=== PATIENT | male | born 1995 | race Caucasian/White ===

== ENCOUNTER 2024-11-17 10:48 | Inpatient (IN) | payer OTHER, SELFPAY ==
[2024-11-17] VITALS (60 sets, daily range): BP systolic 81–166; BP diastolic 38–137; PULSE 115–120; BMI 17.0
[2024-11-17] MEDS: DIPRIVAN 100 IV ×2 (08:35→14:58)
[2024-11-17 08:48] LABS: AST (SGOT) 27 U/L (17-59); Albumin 2.9 g/dl (3.5-5.0); Alkaline Phosphatase 423 U/L (38-126); Blood Urea Nitrogen 18 mg/dl (9-20); Calcium 9.1 mg/dl (8.4-10.2); Carbon Dioxide 21 mmol/L (22-30); Chloride 114 mmol/L (98-107); Estimated Creatinine Clearance 59 ml/min; Glucose 90 mg/dl (70-99); Hematocrit 19.9 % (39.0-52.0); Hemoglobin 5.3 g/dL (13.0-18.0); Mean Corp Hgb Conc. 26.6 g/dL (33.0-37.0); Mean Corpuscular Hgb 15.3 pg (27.0-31.0); Mean Corpuscular Volume 57.3 fL (80.0-94.0); Mean Platelet Volume 8.5 fL (7.4-10.4); Platelet Count 899 10^3/uL (130-400); Potassium 5.4 mmol/L (3.5-5.1); Red Blood Cell Count 3.47 10^6/uL (4.70-6.10); Red Cell Dist. Width 19.7 % (11.5-14.5); Sodium 150 mmol/L (135-145); Total Bilirubin 0.9 mg/dl (0.2-1.3); Total Protein 7.4 g/dl (6.3-8.2); White Blood Cell Count 29.5 10^3/uL (4.8-10.8); eGFR > 60.00
[2024-11-17 08:49] LABS: Lactic Acid 6.3 mmol/L (0.7-2.0)
[2024-11-17 08:56] LABS: ALT (SGPT) < 30 U/L (0-50)
[2024-11-17 09:00] LABS: % Basophils 0.3 % (0-2); % Immature Granulocytes 0.7 % (0-0.5); % Lymphocytes 6.4 % (20.5-51.1); % Monocytes 4.3 % (1.7-9.3); % Neutrophils 88.3 % (42.2-75.2); Absolute Basophils 0.1 10^3/uL (0-0.2); Absolute Immature Granulocytes 0.2 10^3/uL (0-0.05); Absolute Lymphocytes 1.9 10^3/uL (1.2-3.4); Absolute Monocytes 1.3 10^3/uL (0.1-0.6); Absolute Neutrophils 26.1 10^3/uL (1.4-6.5); Nucleated Red Blood Cells % 0.5 % (-)
[2024-11-17] MEDS: NSS 2000 IV (09:04)
[2024-11-17] MEDS: ZOSYN 100 IV ×3 (09:04→19:20)
--- NOTE | 2024-11-17 09:07 | ED.GENMED ---
History of Present Illness
General
Chief Complaint: Breathing Problem
Source: family and ambulance crew
Exam Limitations: clinical condition
Time Seen by Provider: 11/17/24 07:54
History of Present Illness
History of Present Illness:
29-year-old male known history of IVDA/heroin use presented to his mom's house yesterday. He seems somewhat off yesterday. Weaker light around would not typically stick around. Much worse this morning. Lethargic. Would not respond. Ambulance
was called. No other history available
Past History
Past History
ED Past Medical History: Psychiatric and Other (IVDA, previous cellulitis, chronic lower leg wounds)
ED Past Surgical History: Appendectomy
Patient has exhibited threatening behavior?: No
Social History
Tobacco: Smoker
Alcohol: None
Drug: Narcotics and IVDA
Personal: Single
Living: homeless
Family History
Family History: Negative Diabetes, Hypertension or CAD
Review of Systems
Review of Systems
Unable to obtain full review of systems at this time due to: due to acuity
All Other Systems: Not applicable
Phy Exam
Physical Exam
Physical Exam:
GENERAL: Very lethargic. Will open eyes and make eye contact only. Thin cachectic. Respiratory distress.
EYE: Orbits normal.
NECK: Supple, no significant adenopathy.
ENT: Dry mouth. Poor dentition
CARDIAC: Regular rate and rhythm without any obvious murmurs.
LUNGS: Tachypnea. Diffuse rhonchi
ABDOMEN: Mildly distended and hard.
NEUROLOGICAL: Will withdraw to pain. Very lethargic. Nonfocal.
SKIN: Slightly mottled. Large necrotic appearing lesion to the left lower leg. Small necrotic lesion of the right lower leg.
MUSCULOSKELETAL: Thin and cachectic
Sepsis
Sepsis Screening
Sepsis Assessment: Septic Shock
Sepsis Screening: Lactate >/=4mmol/L, Hypotension, Worsening O2 Saturation, Need for mechanical ventilation or BiPAP, Sustained Hypotension-SBP <90,MAP<65, or SBP decrease 40mmHg or more and Vasopressor support required
Sepsis Screen
Sepsis Screen: Septic Shock
Date: 11/17/24
Time: 13:14
Course
Orders/Labs/Results
Orders:
Orders
11/17/24 07:54
Electrocardiogram (*1) Urgent
Reason for Study: Other
Other Reason for Exam: sepsis
Cardiac Monitoring- Treatment ONCE
EKG- Treatment ONCE
Flores Placement- Treatment ONCE
Reason for insertion: I&O's Critical Care
IV Insert/Care/Rem.- Treatment PRN
0.9% Sodium Chloride 1000 ml [Nss] 2,000 ml IV BOLUS
Piperacillin/Tazo 4.5 Gram [Zosyn] 4.5 gram in 100 ml IV NOW
O2 Therapy [RESP] Urgent
Titrate/Wean O2 to maintain O2 sat greater than (%): 94
Pulse Ox/cont/shift [RESP] Urgent
Quantity: 1
11/17/24 07:55
CR Chest Portable - 1 View Urgent
Comment:
Reason For Exam: Respiratory distress
Reason Study Needs to be Portable: Unable to Transport
11/17/24 08:26
Complete Blood Count/With Diff Urgent
Comprehensive Metabolic Panel Urgent
Lactic Acid Q4H
Comment: CANCEL 2nd LACTIC ACID IF 1st LACTIC ACID IS LESS THAN 2
Blood Culture Q30M
CATRACHITO Source: Blood/Venous
Specimen Description:
FentaNYL 1,000 MCG/100 ML [Sublimaze] 1,000 mcg in 100 ml .ROUTE .STK-MED
Propofol 1,000,000 Mcg/100 ml [Diprivan] 1,000,000 mcg in 100 ml .ROUTE .STK-MED
11/17/24 08:38
NORepinephrine 4 MG/250 ML [Levophed] 4 mg in 250 ml .ROUTE .STK-MED
11/17/24 08:44
Vancomycin [Vancocin] 1,500 mg 0.9% Sodium Chloride 500 ml [Nss] 500 ml IV NOW
11/17/24 08:49
* Blood Bank Products Urgent
Blood Bank Products: *Packed RBC Leuko(PRBC's)
Quantity: 2
Transfuse Today: Yes
Reason: Anemia
IV Insert/Care/Rem.- Treatment PRN
11/17/24 08:50
CT Abd/Pel (IV only)-DH only Urgent
Comment:
Reason For Exam: Distention/sepsis
CT Head W/o Iv Contrast Urgent
Comment:
Reason For Exam: Distention/sepsis
11/17/24 09:00
Flush (0.9% Sodium Chloride) [Flush (Nss)] See Dose Instructions IV PER PROTOCOL
11/17/24 09:08
Type+Screen Urgent
PT/INR [Prothrombin Time] Urgent
PTT Urgent
Urinalysis Reflex To Culture Urgent
Date Specimen was Collected: 11/17/24
Time Specimen was Collected: 08:51
Urine Microscopic Reflex Cult Urgent
Blood Culture Q30M
CATRACHITO Source: Blood/Venous
Specimen Description:
11/17/24 09:44
Fentanyl Citrate/Pf [Sublimaze] 100 mcg IV NOW STA
11/17/24 Lunch
NPO
Allow oral meds: No
Allow clear liquids: No
NPO with Ice Chips: Yes
FentaNYL 1,000 MCG/100 ML [Sublimaze] 1,000 mcg in 100 ml IV PER PROTOCOL
Fentanyl Citrate/Pf [Sublimaze] 50 mcg IV [id number] PRN
NORepinephrine 4 MG/250 ML [Levophed] 4 mg in 250 ml IV PER PROTOCOL
Propofol 1,000,000 Mcg/100 ml [Diprivan] 1,000,000 mcg in 100 ml IV PER PROTOCOL
11/17/24 10:10
ABG [Arterial Blood Gas] Urgent
%Oxygen/Room Air: 450/peep 5/60
11/17/24 10:26
Admit/Transfer Patient As Directed
Co-Sign Provider:
Level of Care: Inpatient admission
Assign to:: ICU
Physician / Group: Dr. Homero Claudio/Hospitalists
Diagnosis: Severe Sepsis, Septic Shock, Respiratory Failure
Reason for Hospitalization: Severe Sepsis, Septic Shock, Respiratory Failure
Expected length of stay greater than two midnights?: Yes
ELOS- Estimated Length of Stay in days: 6
I certify the patient meets the requirements for IP care: Yes
11/17/24 10:29
Code Status As Directed
Resuscitation Status: Full Code
11/17/24 10:40
WOUND/OSTOMY CONSULT Routine
Reason for Consult: Wound care
11/17/24 11:00
Dextrose 5%/Water 1000 ml [D5w] 1,000 ml IV 60 mls/hr
11/17/24 11:54
Respiratory Culture/Gram Stain Routine
CATRACHITO Source: Sputum
Specimen Description:
Activity As Directed
Activity Level: As Tolerated
Intake/ Output As Directed
Frequency: q12h
Vital Signs As Directed
Frequency: Per unit guidelines
DX Deep Vein Thrombosis Video Routine
11/17/24 12:00
Lactate Level [Lactic Acid] Urgent
11/17/24 20:00
Heparin 5,000 units SC Q12
11/18/24 06:00
Complete Blood Count/With Diff IN AM
Comprehensive Metabolic Panel IN AM
Magnesium IN AM
11/19/24 06:00
Complete Blood Count/With Diff IN AM
Comprehensive Metabolic Panel IN AM
11/20/24 06:00
Complete Blood Count/With Diff IN AM
Comprehensive Metabolic Panel IN AM
11/21/24 06:00
Complete Blood Count/With Diff IN AM
Comprehensive Metabolic Panel IN AM
11/22/24 06:00
Complete Blood Count/With Diff IN AM
Comprehensive Metabolic Panel IN AM
Abnormal Lab Results
11/17/24 11/17/24 11/17/24
08:26 09:08 10:10
WBC 29.5 H 10^3/uL
(4.8-10.8)
RBC 3.47 L 10^6/uL
(4.70-6.10)
Hgb 5.3 L* g/dL
(13.0-18.0)
Hct 19.9 L* %
(39.0-52.0)
MCV 57.3 L fL
(80.0-94.0)
MCH 15.3 L pg
(27.0-31.0)
MCHC 26.6 L g/dL
(33.0-37.0)
RDW 19.7 H %
(11.5-14.5)
Plt Count 899 H 10^3/uL
(130-400)
Abs Immat Gran (auto) 0.2 H 10^3/uL
(0-0.05)
Absolute Neuts (auto) 26.1 H 10^3/uL
(1.4-6.5)
Absolute Monos (auto) 1.3 H 10^3/uL
(0.1-0.6)
Immature Gran % 0.7 H %
(0-0.5)
Neutrophils % 88.3 H %
(42.2-75.2)
Lymphocytes % 6.4 L %
(20.5-51.1)
PT 19.8 H Sec
(11.4-14.6)
APTT 44.4 H Sec
(23.4-35.0)
pH 7.32 L
(7.35-7.45)
pO2 411 H mmHg
(83-108)
ABG O2 Sat (Measured) 98.6 H %
(94-98)
Sodium 150 H mmol/L
(135-145)
Potassium 5.4 H mmol/L
(3.5-5.1)
Chloride 114 H mmol/L
(98-107)
Carbon Dioxide 21 L mmol/L
(22-30)
Creatinine 1.4 H mg/dL
(0.7-1.3)
Lactic Acid 6.3 H* mmol/L
(0.7-2.0)
Alkaline Phosphatase 423 H U/L
(38-126)
Albumin 2.9 L g/dl
(3.5-5.0)
Ur Occult Blood Reflex 1+ A
(Negative)
Urine RBC 3-6 A /HPF
(0-2)
Urine Albumin (Reflex) 3+ A
(Neg - Trace)
Crossmatch IS Only See Detail
11/17/24 08:26
11/17/24 08:26
Vital Signs
Initial and Last Documented VS:
Initial Vital Signs
Pulse
93
11/17/24 07:53
Last Documented Vital Signs
Temp Pulse Resp BP Pulse Ox
97.6 F 120 24 149/111 100
11/17/24 12:55 11/17/24 12:15 11/17/24 12:15 11/17/24 12:04 11/17/24 12:54
Procedures
Intubations
Procedure completed by: myself/Boni barajas
Method of Intubation: glidescope
Tube size (cm): 7.5
Placement confirmed by: auscutation, CXR, capnography, placement corrected and direct visualization
Breath sounds after intubation: equal
Intubation complications: no complications
Central Line
Right Femoral:
Indication for procedure:: Emergency access
Procedure completed by: Myself
Consent form signed: Yes
If no, reason: Emergency procedure
Anesthesia: 1% Lidocaine with Epi
Central line lumen: triple
Number of attempts: 1
Central line complications: none
Sterile dressing applied?: Yes
MDM/Problems Addressed
Differential Diagnosis Includes:
Patient presents significant mental status change tachypnea. Clinically septic. Possible noncardiogenic pulmonary edema. Initially became an IV access issue. Femoral line placed. Intubated. Currently with reasonable blood pressure mildly
tachycardic. Family updated multiple times. Being treated for sepsis.
*Pulse Oximetry
Patient hypoxic: yes
*[employer] Interpretation
Rate: tachycardiac
Interpretation: abnormal
Heart Rate: 120
Rhythm: sinus
*Critical Care Note
Total Time (30-74mins, 75-104mins- exclusive of procedures): 45
Data Reviewed
Review of Other/Old Records Reveals: Labs, Records, Testing and Progress Notes
Update Note
Update Note:
Patient's mom gave verbal consent for blood.
ED Attending Note
-
Portions of this chart may have been created with voice recognition software.� Occasional wrong word or��sound alike� substitutions may have occurred due to the inherent limitations of voice recognition software.
Discharge Plan
Departure
Patient Disposition: Admit
Date of Disposition: 11/17/24
Time of Disposition: 09:18
Presentation/result/management discussed w/ accepting MD/DO: Hospitalist
Discharge Problem:
Sepsis, Respiratory distress, Chronic wound left lower extremity, Severe anemia, Possible aspiration, History of IVDA
Interventions
Interventions:
*Risk Screen - Suicide Last Done: 11/17/24 07:56
*General Assessment Last Done: 11/17/24 07:56
*Neglect/Abuse Screening Last Done: 11/17/24 07:56
*ED COVID-19 Vaccine History Last Done: 11/17/24 08:16
ED- Cardiac Assessment Last Done: 11/17/24 09:30
ED- Pulmonary Assessment Last Done: 11/17/24 10:33
[2024-11-17 09:29] LABS: Urine Albumin 3+ (Neg - Trace); Urine Bilirubin Negative (Negative); Urine Character Clear (Clear); Urine Color Yellow; Urine Glucose Negative (Negative); Urine Ketone Negative (Negative); Urine Leukocyte Negative (Negative); Urine Nitrite Negative (Negative); Urine Occult Blood 1+ (Negative); Urine Urobilinogen 1+ (Neg - 1+)
[2024-11-17 09:32] LABS: INR 1.66; PT 19.8 Sec (11.4-14.6)
[2024-11-17] MEDS: VANCOCIN 530 MG IV (09:32)
[2024-11-17 09:33] LABS: APTT 44.4 Sec (23.4-35.0)
[2024-11-17 10:17] LABS: Urine Amorphous Seen
[2024-11-17] MEDS: SUBLIMAZE 100 IV ×2 (10:18→15:28)
[2024-11-17 10:19] LABS: Urine White Cell 0-2 /HPF (0-5)
[2024-11-17 10:22] LABS: B.E. -3.5 mmol/L; HCO3 22.2 mmol/L (21-28); O2 Saturation % 98.6 % (94-98); PCO2 43 mmHg (35-48); PO2 411 mmHg (83-108); pH 7.32 (7.35-7.45)
[2024-11-17] MEDS: SUBLIMAZE 100 MCG IV (10:24)
[2024-11-17] MEDS: LEVOPHED 250 IV (10:24)
--- NOTE | 2024-11-17 10:38 | HPS.HSE ---
Family Physician
-
Family Physician: * NONE
Chief Complaint
-
Lethargy
History of Present Illness
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
positive for fentanyl, cocaine, and marijuana presented with lethargy. History was obtained from the emergency room physician as well as patient's mom and family present in the patient's room. Patient has been living on the streets in [place],
[place], using IV drugs on the streets, and usually comes to his mom's house, stays for a little while and then leaves, but yesterday, he came and laid on the couch and did not leave and appeared lethargic and sick. Patient's mom says blood is
always dripping from him whenever he comes to visit. No other history was available.
Medical History
Past Medical History
Past Medical History: Reports Other (As per HPI above)
Past Surgical History: Reports Appendectomy
Social History
Tobacco: Smoker
Alcohol: None
Drug: IVDA
Family History
Family History: Not pertinent
Allergies / Home Medications
Allergies reflects when Allergies were last updated in [facility].
Home Medications with original date entered in [facility]
Allergy/Medication List:
Allergies
Allergy/AdvReac Type Severity Reaction Status Date / Time
No Known Allergies Allergy Verified 11/17/24 08:16
Home Medications
Unobtainable 11/17/24
Review of Systems
-
Unable to obtain full review of systems at this time due to: Acuity
Physical Exam
Vital Signs
Vital Signs
Temp Pulse Resp BP Pulse Ox
96.1 F L 110 31 158/117 73
11/17/24 09:11 11/17/24 10:30 11/17/24 10:05 11/17/24 10:25 11/17/24 09:30
Physical Exam
General: Appears Chronically Ill and Intubated
HEENT: NormoCephalic
Respiratory: Other (On mechanical ventilation with equal air entry bilaterally)
Cardiac: S1/S2 and Tachycardia
GI: Distended (Mildly distended. Feels hard (not soft).)
Musculoskeletal: No Cyanosis
Skin: Other (Wounds on bilateral lower extremities)
Neuro: Sedated
Psych: Calm
Laboratory Results
-
11/17/24 08:26
11/17/24 08:26
Laboratory Results
PT 19.8 Sec (11.4-14.6) H 11/17/24 09:08
INR 1.66 11/17/24 09:08
APTT 44.4 Sec (23.4-35.0) H 11/17/24 09:08
pH 7.32 (7.35-7.45) L 11/17/24 10:10
pCO2 43 mmHg (35-48) 11/17/24 10:10
pO2 411 mmHg (83-108) H 11/17/24 10:10
HCO3 22.2 mmol/L (21-28) 11/17/24 10:10
Lactic Acid 6.3 mmol/L (0.7-2.0) H* 11/17/24 08:26
Total Bilirubin 0.9 mg/dl (0.2-1.3) 11/17/24 08:26
AST 27 U/L (17-59) 11/17/24 08:26
ALT < 30 U/L (0-50) 11/17/24 08:26
Alkaline Phosphatase 423 U/L (38-126) H 11/17/24 08:26
Impression/Plan
-
Assessment/Plan
Septic Shock
Lactic Acidosis
Left Mid to Lower Lung Atelectasis vs. Pneumonia
Suspected Infection related to wounds from IVDU
Acute Hypoxic Respiratory Failure
Acute Toxic Metabolic Encephalopathy Secondary to the Above
-Blood cultures x2 ordered -- follow-up
-Received Normal Saline Fluid bolus in the ER
-Received vancomycin and Zosyn in the ER
-Continue broad spectrum antibiotics
-Continue mechanical ventilation
-Continue vasopressors
-Femoral Line placed in the ER
-Monitor in ICU
Anion Gap Metabolic Acidosis Suspected from Lactic Acidosis and Starvation
-Continue IV fluids
-Continue antibiotics
Acute Microcytic Anemia -- suspected acute blood loss anemia
-Hgb 5.3 initially
-2 units PRBCs ordered in the emergency room
-Recheck Hgb later this afternoon or evening after PRBC transfusion
-Check iron studies, suspected iron deficiency present
Hypernatremia
-Continue D5W IV fluids
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
Left lower extremity wounds bilaterally
Anxiety
Depression
Polysubstance use (including heroin)
Smoking
Vaping
History of UDS positive for fentanyl, cocaine, and marijuana
DVT Prophylaxis: Heparin Subq
Code Status: Full Code
Septic Shock and Respiratory Failure needing intubation is high-risk encounter.
[2024-11-17] MEDS: SUBLIMAZE 50 MCG IV (11:23)
--- NOTE | 2024-11-17 11:30 | PHA.VAN.IN ---
Assessment
- Assessment
Renal Function: Appears elevated from baseline
Maximum Temperature: 97.5
Minimum Temperature: 96.1
Concomitant Antimicrobials: zosyn
Plan
- Plan
Initial / Loading Dose: vancomycin 1500 mg x 1 on 11/17
Maintenance Regimen: dose by level
Monitoring: random level ordered for 11/18 @0600
Pharmacokinetics Vancomycin I
- -
Patient Age: 29
Patient Sex: Male
Vancomycin Day #: 1
Indication: Endocarditis
Requesting Provider: Dr. Claudio
Pertinent Antimicrobial Allergies:
nkda
Height / Weight:
Height 5 ft 10 in
Actual Weight 53.8 kg
IBW in k
Pertinent Past Medical History: history of osteomyelitis, left lower extremity wounds, IV drug use,
- Vital Signs / Lab Results
Temp Pulse Resp BP Pulse Ox
96.7 F L 116 24 166/110 100
11/17/24 11:15 11/17/24 11:10 11/17/24 11:10 11/17/24 11:10 11/17/24 11:01
Lab Results - Hematology
11/17/24
08:26
WBC 29.5 H
Lab Results - Chemistry
11/17/24
08:26
BUN 18
Creatinine 1.4 H
Estimated Creat Clear 59
Albumin 2.9 L
11/17/24 11/17/24
08:00 08:26
Lactic Acid Cancelled 6.3 H*
Lab Results - Urine
11/17/24
09:08
Urine Nitrite (Reflex) Negative
Leukocyte Esterase Rfl Negative
Urine WBC (Reflex) 0-2
Ur Squamous Epith Cells 3-5
--- NOTE | 2024-11-17 11:31 | CON.INTV ---
Consultation
Consultation Request
Date/Time Consultation Requested: 11/17/2024 - 1122
Date/Time Consultation Performed: 11/17/2024 - 1126
Requesting Provider: Dr. Claudio
Performing Provider: Dr. Pace
Reason for Consultation: Intubated/Sepsis/IVDU
Medical History
-
Chief Complaint: Short of breath
History of Present Illness:
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
tobacco use disorder who presents with respiratory distress. Patient lives on the streets in [place] but came to his mother's house 1 day prior to arrival. The patient had gone to take shower and then passed on the couch. Per the mother,
Adriana, she gives him money every once in a while so that he can get something to eat but she believes that he has been using her money for drugs. He has almost no fat on him, and when he is at her house he bleeds all over the place from his leg
wounds. He had gone to rehab a few years ago and was doing well, but then relapsed and now is not doing good at all. Per the mother, he only does heroin/fentanyl, no alcohol use and no known benzo use. Because the patient would not get up off the
couch and wake up, the mother brought him to the ER. Initially, pulse rate 93, respiratory rate 42, BP 125/101 and saturating 96% on 15 L/min via NRB. Initial labs showed WBC 29.5, Hb 5.3, platelet count 899, sodium 150, potassium 5.4, creatinine
1.4, lactate 6.3, and urinalysis negative for signs of UTI. Blood cultures were collected, and CXR showed pneumonia in the left middle to lower lung. CT A/P confirmed left lower lobe pneumonia and some patchy groundglass/tree-in-bud in his RML/RLL
concerning for pneumonitis vs pneumonia. In the ER he was intubated for airway protection/hypoxia, and given 2 L IVF with NS 0.9%, vent, Zosyn, started on fentanyl drip, propofol and Levophed. He was admitted to the ICU for further care with
Boiler Coverer Helper services consulted for additional management/recommendations.
When I saw the patient he was resting in bed in no acute distress, although he was shaking and clenching his abdomen. Currently intubated on AC/CMV at 18/450/5/40% with PIP 23 cm water, VTE 451 mL and breathing at 24 breaths/min. Heart rate 119,
saturating 90% and BP 149/111. Currently sedated on propofol at 50 mcg/kg/min and fentanyl at 175 mcg/h. Patient's mother, Karlie, at bedside and all questions were answered.
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
PSHx: Appendectomy
Past Medical History
Past Medical History: Other
Past Surgical History: Other (Above as per HPI)
Social History
Tobacco: Smoker
Alcohol: None
Drug: Marijuana, Cocaine and IVDA
Living: Homeless
Family History
Family History: Reviewed & Not Pertinent
Allergies / Home Medications
Allergies
Allergy/AdvReac Type Severity Reaction Status Date / Time
No Known Allergies Allergy Verified 11/17/24 08:16
Home Medications
�Medication �Instructions �Recorded �Confirmed �Last Taken �Type
Unobtainable 11/17/24 11/17/24 Unknown History
Review of Systems
-
Unable to Obtain full review of systems at this time due to: Patient Intubation
Vitals / Labs / Diagnostic Testing
Vital Signs
Temp Pulse Resp BP Pulse Ox
97.5 F 120 20 158/107 100
11/17/24 11:19 11/17/24 11:19 11/17/24 11:19 11/17/24 11:19 11/17/24 11:19
Lab Data
11/17/24 08:26
11/17/24 08:26
Laboratory Results
11/17/24 11/17/24
09:08 10:10
PT 19.8 H
INR 1.66
APTT 44.4 H
pH 7.32 L
pCO2 43
pO2 411 H
HCO3 22.2
O2 Delivery Level
Diagnostic Testing:
Physical Exam
-
HEENT: Normocephalic, Anicteric and Other (ETT in place)
Cardiovascular: S1/S2, Peripheral Edema (negative) and Other (Tachycardic)
Respiratory: Wheeze (negative), Rales (negative), Rhonchi (Left lower lobe), Non-Labored Respirations and Other (Mechanical breath sounds heard bilaterally)
GI: Soft, Non Tender and Other (Firm abdomen but not rigid)
Neurology: Tremors (negative) and Other (Sedated)
Skin: Warm, Dry and Other (Foul-smelling lower extremities with areas of necrosis)
General: Respiratory Distress (negative), Fever (negative), Chills (negative) and Other (Young male, appears cachectic and malnourished)
Assessment
-
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
anxiety/depression and tobacco use disorder who presents with respiratory distress. Patient lives on the streets in [place] but came to his mother's house 1 day prior to arrival. The patient had gone to take shower and then passed on the
couch. Per the mother, Adriana, she gives him money every once in a while so that he can get something to eat but she believes that he has been using her money for drugs. He has almost no fat on him, and when he is at her house he bleeds all over
the place from his leg wounds. He had gone to rehab a few years ago and was doing well, but then relapsed and now is not doing good at all. Per the mother, he only does heroin/fentanyl, no alcohol use and no known benzo use. Because the patient
would not get up off the couch, the mother brought to the ER. Initially, pulse rate 93, respiratory rate 42, BP 125/101 and saturating 96% on 15 L/min via NRB. Initial labs showed WBC 29.5, Hb 5.3, platelet count 899, sodium 150, potassium 5.4,
creatinine 1.4, lactate 6.3, and urinalysis negative for signs of UTI. Blood cultures were collected, and CXR showed pneumonia in the left middle to lower lung. CT A/P confirmed left lower lobe pneumonia and some patchy groundglass/tree-in-bud in
his RML/RLL concerning for pneumonitis vs pneumonia. In the ER he was intubated for airway protection/hypoxia, and given 2 L IVF with NS 0.9%, vent, Zosyn, started on fentanyl drip, propofol and Levophed. He was admitted to the ICU for further
care with Boiler Coverer Helper services consulted for additional management/recommendations.
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
Impression:
#Acute respiratory failure with hypoxia+ hypercapnia now on mechanical ventilation (intubated 11/17/2024)
#Sepsis due to pneumonia and LE wounds with regions of necrosis
#Acute anemia (suspected to be from his bleeding lower extremity wounds in the setting of sepsis)
#Thrombocytosis � likely reactive due to sepsis and drug withdrawal
#HEYDI with mild hyperkalemia
#Hyperchloremic/hypernatremic likely due to reduced oral intake with hypovolemia
#Lactic acidosis
#Elevated ALP (423 on )
#Abnormal UDS positive for fentanyl, opiates, cocaine + THC)
#Chronic LE wounds with regions of necrosis and foul smelling
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
#PNA in LLL, possibly also in RML/RML however could have a pneumonitis from illicit drug use insufflation
#Tobacco use disorder
Plan:
- Continue with mechanical ventilation and perform SAT/SBT daily if clinically appropriate
- Maintain SpO2 >90-94%
- Aspiration precautions
- Maintain plateau pressure <30
- Adjust vent settings daily based on blood gas
- Daily CXR
- ETT suctioning as needed
- prn nebulized bronchodilators - not currently bronchospastic
- Continue antibiotics, currently on Zosyn + IV vancomycin
- Follow-up blood cultures (collected 11/17/2024); check MRSA swab + respiratory cultures + Legionella + strep pneumonia urine antigens
- Wound care to his lower extremities
- Trend WBC and monitor for fevers
- May need ID given his Hx of chronic OM of his R-elbow with Hx of MRSA and chronic LE wounds
- Would consult surgery as well for a debridement
- For his illicit drug use now with withdrawal, continue fentanyl and propofol drips
- Start clonidine TID, uptitrating as needed
- Start oxycodone 10mg PO q6hr and klonopin 1mg TID
- May need precedex gtt as he is becoming more hypertensive since being here in ICU
- Start nicotine patch
- Maintain MAP>65
- Trend lactate until <2mmol/L
- Trend sNa --> started on D5W however he would fare better with a isotonic crystalloid as he likely has high Na from being volume depleted
- Trend sNa and sCr
- Monitor UOP with strict I/O
- Replete electrolytes with K>4, Mg>2
- Maintain euglycemia with goal BG 140-180; check A1C
- Trend H/H and transfuse if needed to keep Hb>7g/dL; keep plt>50k, and INR<1.8
- Stress ulcer ppx: Start PPI
- Early nutrition when possible to would hold off for now given distention of small bowel loops with suspected focal ileus seen on CT A/P from 11/17/2024
- DVT ppx: HSQ
Critical care statement: A total of 42 minutes of critical care time was provided for this patient today. This includes management of unstable vital signs, evaluation of the patient at bedside, reviewing the patient's pertinent medical records
including radiographs, microbiology, laboratory evaluations, and discussion with primary team, consultants, pharmacy, nutrition, physical therapy, case management, charge nurse, critical care nursing, and respiratory therapy.
Data:
CT Abd/Pelvis with IV contrast 11/17/2024:
Confluent parenchymal opacity within the left lower lobe of the lung, most likely pneumonia. Differential considerations of atelectasis or a combination of pneumonia and atelectasis.
Multiple small nodular and groundglass opacities throughout the visualized right lower lung, which is likely a diffuse small airway pneumonitis. Linear densities within the right lower lung compatible with discoid atelectasis.
Distention of the stomach. Distention of small bowel loops, most likely focal ileus. No evidence for free intraperitoneal air. Small bowel obstruction not excluded.
Hepatomegaly and splenomegaly, with slight increase in size of liver and spleen compared to prior CT in 2021.
There is heterogeneous decreased density of the liver, mainly in the right lobe and the superior to mid aspect. This could represent edema and/or fatty infiltration. Consider continued follow-up.
On delayed images, with lack of excretion of contrast into dilated calyces or ureters of either kidney, which would suggest diminished renal function/ATN. Continued serologic follow-up is advised.
Slightly enlarged left para-aortic lymph nodes, nonspecific, and could be reactive inflammatory nodes, but neoplastic nodes also possible. Consideration for continued follow-up.
--- NOTE | 2024-11-17 12:55 | PTCARENOTE ---
pt arrived via ed. pt intubated ac mode on vent. st seen on monitor. sedate moves all ext. following simple commands. non verbal. pupils 2 sluggish. dubois care done. bilat leg dressing done in ED c/d/i. wound care to seen him today. prbc
running. fent and dip running as ordered. ngt in place placement checked and flushed. pt mother at bedside reviewed pt condition and plan of care.
[2024-11-17] MEDS: CATAPRES 0.3 MG PO (13:29)
[2024-11-17 14:11] LABS: Cocaine Positive (Negative); Marijuana Positive (Negative); Opiates Positive (Negative)
[2024-11-17 14:12] LABS: Amphetamines Negative (Negative); Barbiturates Negative (Negative); Benzodiazepines Negative (Negative); Buprenorphine Negative (Negative); Methadone Negative (Negative); Methamphetamines Negative (Negative); Phencyclidine Negative (Negative); Tricyclic Antidepressants Negative (Negative)
[2024-11-17 14:45] LABS: Fentanyl, Urine Positive (Negative)
[2024-11-17] MEDS: D5W 1000 IV (14:49)
--- NOTE | 2024-11-17 15:59 | WOUNDNOTE ---
LEFT LOWER LEG
--- NOTE | 2024-11-17 16:00 | WOUNDNOTE ---
RIGHT LATERAL LEG
--- NOTE | 2024-11-17 16:03 | WOUNDNOTE ---
[facility] RN NOTE: Reviewed chart and met with patient. Patient known from previous admission of left leg full thickness wound r/t IVDA. See Worklist for measurements and full description. Right lateral leg has full thickness wound with pale pink wound
bed and minimal drainage. The left leg is malodorous with purulent drainage and areas of thick black eschar. TT Dr. Pace to recommend surgical consult for left leg. All other wound care orders confirmed and wound care provided to both legs as
ordered with assistance from RN Leland. Heels and sacrum intact. Heels off-loaded on pillows. Patient on Centrella Max air with turning schedule. Will continue to follow as needed.
[2024-11-17] MEDS: DAKIN'S SOLUTION 0.125% 1/4 STRENGTH 473 ML TOPICAL (16:19)
[2024-11-17] MEDS: THIAMINE INJECTION 200 MG IV (16:19)
[2024-11-17] MEDS: SILVER NITRATE APPLICATOR 10 EACH TOPICAL (16:20)
[2024-11-17] MEDS: PROTONIX IV 40 MG IV (16:20)
[2024-11-17] MEDS: NSS 1000 IV (16:21)
[2024-11-17] MEDS: PRECEDEX 100 IV (16:21)
--- NOTE | 2024-11-17 16:24 | OR.RPT ---
Addendum entered and electronically signed by Maciel Cruz MD 11/22/24 08:59:
Addendum at the end of the details of the operation: 'ALPHONSO Aguilar assisted with retraction, resection, providing countertraction and dressing the wound.'
Original Note:
Operative Report
Operative Report
Patient Name: Lokesh Guerrero
: 1995
Date of Operation: 11/17/2024
Preoperative Diagnosis: Necrotizing soft tissue infection
Postoperative Diagnosis: Same
Procedure(s):
Excisional debridement of skin of the left lower extremity (20 x 7 x 0.5 cm deep)
Surgeon(s):
Dr. Cruz
Welder Plastic(s):
ALPHONSO Aguilar
Anesthesia: Propofol sedation
Estimated Blood Loss: 13 cc
Urine Output: None
Drains/Lines/Implants: None
Specimens:
Wound fluid for culture and Gram stain
Indication for surgery:
This is a 29-year-old male IV drug abuser found to have a significant left lower extremity wound with skin necrosis concerning for a necrotizing soft tissue infection. After discussion of the risk benefits and alternatives the patient's mother
consented for an open debridement verbally at bedside.
Findings at the time of surgery:
Patient had multiple foci of necrotic tissue that was all debrided back to healthy bleeding tissue. The final dimension of the wound was roughly 20 x 7 x 0.5 cm deep. The wound was washed out and hemostasis was achieved. The wound was dressed
with Adaptic followed by a gauze/Kerlix pressure dressing.
Details of the operation:
The patient was intubated and under sedation in the ICU. A bedside debridement was performed. Multiple pads were placed under the left lower extremity which was prepped with Betadine and draped in the usual fashion. Under sedation a timeout was
performed, confirming the patient, laterality of the procedure and that appropriate preoperative antibiotics had been given. The visibly necrotic skin was completely excised using an 11 blade scalpel until we encountered healthy bleeding tissue.
There was some purulence which was sent for culture. Further debridement was accomplished mechanically with a curette. The wound was irrigated and then hemostasis was achieved using several applications of silver nitrate and Surgicel which was
left on the wound. The final dimensions of the debrided wound was 20 x 7 x 0.5 cm deep. The wound was then dressed with an Adaptic dressing followed by gauze and a Kerlix wrap with care to place pressure over the area of the area of previous
bleeding. This marked the conclusion of the procedure and his care was turned back to the ICU staff.
I was the attending physician and performed the procedure with assistance from the SALES OFFICE MANAGER above. I was present for all portions of the case.
Maciel Cruz MD
--- NOTE | 2024-11-17 16:25 | CON.GS ---
Addendum entered and electronically signed by Maciel Cruz MD 11/17/24 16:48:
I saw and examined the patient independently.
The Marketing Operations Analyst's note was reviewed and I agree with the note, assessment and plan except where noted below.
Comment: 29-year-old male with a history of IV drug use and injection into his lower extremities who presents with sepsis thought to be secondary to his lower extremity wounds particularly his left. General surgery consulted for evaluation and
possible debridement. Significant necrosis noted on the left side extending to the muscle, debrided at bedside to see separately dictated operative note.
Wound care: Appreciate wound care consult. Dakin's wet to dry Kerlix wrap twice daily. Once the infection is cleared, can switch to Adaptic, gauze and Kerlix wrap.
Follow-up wound cultures. Continue antibiotics.
General Surgery will follow peripherally, please call with any questions or concerns.
Original Note:
Medical History
-
Chief Complaint: wound
History of Present Illness:
Mr Guerrero is a 29 yo male with a h/o polysubstance abuse and Hep C who presented for evaluation of LE wounds. He was previously admitted in 2022 for osteomyelitis of the right elbow but signed out AMA prior to completing antibiotics. He is
currently intubated and sedated with his mother at bedside providing history. She notes that he has been living on the streets in [place] and occasionally comes home. She noticed that when he came home this time, he was not getting up from the
couch and was lethargic and she called an ambulance. He has had these wounds for some time but she notes that he has been afraid to come to the hospital for treatment as he is worried about amputation.
Past Medical History
Past Medical History: Psychiatric (anxiety/depression) and Other (polysubstance abuse, Hep C, MRSA, osteo of the right elbow)
Past Surgical History: Appendectomy
Social History
Tobacco: Vaping
Drug: Marijuana, Cocaine, Narcotics and IVDA
Personal: Single
Living: Homeless (stays with mother at times)
Family History
Family History: Reviewed & Not Pertinent
Allergies / Home Medications
Allergy/AdvReac Type Severity Reaction Status Date / Time
No Known Allergies Allergy Verified 11/17/24 08:16
�Medication �Instructions �Recorded �Confirmed �Type
Unobtainable 11/17/24 11/17/24 History
Review of Systems
-
History Source: Patient and Family
All other systems: Negative unless noted
A 10 point review of systems was completed, and was negative except as per HPI.
Physical Exam
Vital Signs
Temp Pulse Resp BP Pulse Ox
97.8 F 117 23 140/101 99
11/17/24 14:46 11/17/24 15:45 11/17/24 15:45 11/17/24 15:30 11/17/24 15:45
11/16/24 11/17/24 11/18/24
06:59 06:59 06:59
Actual Weight 53.8 kg
Body Mass Index (BMI) 17.0
Lab Results
WBC 29.5 10^3/uL (4.8-10.8) H 11/17/24 08:26
Hgb 5.3 g/dL (13.0-18.0) L* 11/17/24 08:26
Hct 19.9 % (39.0-52.0) L* 11/17/24 08:26
Plt Count 899 10^3/uL (130-400) H 11/17/24 08:26
Abs Immat Gran (auto) 0.2 10^3/uL (0-0.05) H 11/17/24 08:26
Neutrophils % 88.3 % (42.2-75.2) H 11/17/24 08:26
Physical Exam
General: Intubated; Negative Well Nourished
HEENT: Normocephalic
Respiratory: Non Labored Respirations and Other (vdrf)
GI: Soft and Non Tender
Skin: Other (RLE with denuded skin to santos about 5cm in length with slough to distal edge. LLE with large wound covering the anterior portion of the leg from about 10cm below the knee to level of the ankle with denuded skin, injection sites and
scattered areas of necrosis. Foul smelling with blood drainage. )
Neuro: Sedated
Data Reviewed
-
Labs: Labs Reviewed by me, Discussed with Physician and Discussed with Patient
Assessment / Plan
-
29 yo male with a h/o polysubstance abuse, hep c, MRSA, and osteo of the right elbow presenting sepsis secondary to pna and LE wounds. VDRF in ICU and sedated. Significant leukocytosis. Tachycardic, normothermic, BP elevated.
LLE wounds debrided at bedside (see procedure note) and cultures taken. Wound comes very close to bone, suspect possible osteomyelitis.
--Wound cultures
--BID dressing changes with Dakin's soaked gauze and Kerlix wrap. Wound care following.
--Continue ABX
--May benefit from ID evaluation
--- NOTE | 2024-11-17 17:35 | PTCARENOTE ---
Precedex ordered and being used for pos withdraw symptoms.
[2024-11-17 18:22] LABS: Hemoglobin 6.6 g/dL (13.0-18.0); Mean Corpuscular Hgb 17.9 pg (27.0-31.0); Mean Corpuscular Volume 59.6 fL (80.0-94.0); Mean Platelet Volume 8.2 fL (7.4-10.4); Platelet Count 602 10^3/uL (130-400); Red Blood Cell Count 3.69 10^6/uL (4.70-6.10); Red Cell Dist. Width 22.6 % (11.5-14.5); White Blood Cell Count 20.6 10^3/uL (4.8-10.8)
[2024-11-17] MEDS: ZANAFLEX 2 MG TUBE (18:27)
[2024-11-17] MEDS: ROXICODONE ORAL SOLUTION 20 MG TUBE (18:27)
[2024-11-17] MEDS: CATAPRES 0.2 MG TUBE (18:27)
[2024-11-17 18:30] LABS: Blood Urea Nitrogen 22 mg/dl (9-20); Carbon Dioxide 23 mmol/L (22-30); Chloride 116 mmol/L (98-107); Estimated Creatinine Clearance 59 ml/min; Glucose 83 mg/dl (70-99); Lactic Acid 0.8 mmol/L (0.7-2.0); Potassium 4.6 mmol/L (3.5-5.1); Sodium 147 mmol/L (135-145); Triglycerides 91 mg/dl (10-149); eGFR > 60.00
[2024-11-17] MEDS: HEPARIN 5000 UNITS SC (19:22)
[2024-11-17 20:06] LABS: Reticulocyte Count 2.1 % (0.4-2.8)
[2024-11-17 20:23] LABS: Iron 21 ug/dl (49-181)
--- NOTE | 2024-11-17 20:30 | PTCARENOTE ---
Handoff report received from off going RN. Patient received on mechanical ventilation and on Fentanyl gtt at 175 mcg/hr, Propofol at 50 mcg/kg/min. Precedex at 0.6 mcg/kg/hr, and NSS at 100 ml/hr. Patient grimaces to painful stimuli and mouth care.
Otherwise, does not follow simple commands. Plan of care for the shift reviewed with the patient. Sinus tachy on the monitor. Afebrile. +2 pitting edema to LLE. SpO2 at 99% on ventilator setting AC 18/450/+5/40%. Pt's with #7.5 ETT & 24@ the lips.
Rhonchi and coarse breath sounds. Blood tinged sputum with suction. Right nare NGT is clamped. Placement verified via auscultation. However, NGT sound is difficult to hear. Pt belches with air bolus via NGT. Flores catheter is draining guilherme urine.
Flores care completed. Bilateral wound dressings are cdi at this time. Restraints are in place. Andrea Castro CRNP is at the bedside.
19:33-1 pack PrBC transfusing. Full assessment as noted on the worklist.
20:10: Patient SpO2 decreased to 82%. 100% FiO2 bolus on ventilatior. Patient suctioned for scant amount. SpO2 at 93% on ventilator and increasing.
e.
[2024-11-17 20:33] LABS: Percent Saturation 6 % (20-50); Total Iron Binding Capacity 349 ug/dl (261-462)
--- NOTE | 2024-11-17 20:45 | PTCARENOTE ---
20:43: Pt's SpO2 at 80% on ventilator. Pt suctioned for scant amount. 100% FiO2 bolus provided. RT Jamar paged and made aware. RT at the bedside. RHONDA Castro is at the bedsid
[2024-11-17 21:05] LABS: Ferritin 15.3 ng/ml (17.9-464.0)
--- NOTE | 2024-11-17 21:47 | PTCARENOTE ---
192- Prbc transfusion completed.
~1935: Pt's mother, Karlie, updated via the phone. Pt's mother states that she would like the patient to be kept 'intubated or placed in a coma until he gets better. ' Pt's mother stated that the patient would 'run' once he gets better.
[2024-11-18] VITALS (24 sets, daily range): BP systolic 117–162; BP diastolic 80–109; BMI 17.2
[2024-11-18] MEDS: ZANAFLEX 2 MG TUBE ×3 (00:07→12:59)
[2024-11-18] MEDS: CATAPRES 0.2 MG TUBE ×3 (00:07→12:59)
[2024-11-18] MEDS: ROXICODONE ORAL SOLUTION 20 MG TUBE ×3 (00:08→12:59)
[2024-11-18 00:28] LABS: Hematocrit 23.2 % (39.0-52.0); Hemoglobin 7.1 g/dL (13.0-18.0)
[2024-11-18] MEDS: DIPRIVAN 100 IV (00:42)
--- NOTE | 2024-11-18 00:44 | PTCARENOTE ---
Patient reassessed. Opens his eyes but does not follow commands. Administered scheduled medications and noticed that the medications came out of the patient's mouth. TRIMMER OPERATOR THREE KNIFE made aware and is at the bedside. New NGT placement ordered and placed to the
right nare at 65.5 cm. Placement verified via air bolus and auscultation. X-ray at the bedside. Propofol weaning continued.
[2024-11-18] MEDS: ZOSYN 100 IV ×4 (02:20→19:49)
[2024-11-18] MEDS: NSS 1000 IV ×2 (02:21→13:00)
[2024-11-18] MEDS: SUBLIMAZE 50 MCG IV ×2 (02:44→03:28)
[2024-11-18] MEDS: PRECEDEX 100 IV ×3 (03:04→19:48)
--- NOTE | 2024-11-18 03:53 | W.PN.UPDATE ---
Update Note
Progress Note Update
Procedure Note: Arterial Line�
� Right Wrist Arrow 20 (10/24)�
Diagnosis:��Sepsis, acute respiratory failure
IV Line Comments: Uneventful Procedure�
Gene's test completed pre-procedure: Yes�
A-Line Comments: Sterile technique as per standard protocol, Ultrasound guided insertion�
Functioning A-line in situ: Yes�
A-line Insertion Start Time:��0315
A-line in at:��0320
[2024-11-18] MEDS: SUBLIMAZE 100 IV ×2 (04:45→10:16)
[2024-11-18 04:58] LABS: B.E. -5.7 mmol/L; HCO3 19.2 mmol/L (21-28); O2 Saturation % 98.8 % (94-98); PCO2 34 mmHg (35-48); PO2 188 mmHg (83-108); pH 7.36 (7.35-7.45)
[2024-11-18 04:59] LABS: O2 Therapy 40%
[2024-11-18 05:24] LABS: % Basophils 0.5 % (0-2); % Eosinophils 1.9 % (0-6); % Immature Granulocytes 0.3 % (0-0.5); % Lymphocytes 10.3 % (20.5-51.1); % Monocytes 4.6 % (1.7-9.3); % Neutrophils 82.4 % (42.2-75.2); Absolute Basophils 0.1 10^3/uL (0-0.2); Absolute Eosinophils 0.2 10^3/uL (0-0.7); Absolute Lymphocytes 1.3 10^3/uL (1.2-3.4); Absolute Monocytes 0.6 10^3/uL (0.1-0.6); Hematocrit 23.1 % (39.0-52.0); Hemoglobin 7.1 g/dL (13.0-18.0); Mean Corp Hgb Conc. 30.7 g/dL (33.0-37.0); Mean Corpuscular Hgb 19.2 pg (27.0-31.0); Mean Corpuscular Volume 62.6 fL (80.0-94.0); Mean Platelet Volume 8.4 fL (7.4-10.4); Nucleated Red Blood Cells % 0.2 % (-); Platelet Count 574 10^3/uL (130-400); Red Blood Cell Count 3.69 10^6/uL (4.70-6.10); Red Cell Dist. Width 23.4 % (11.5-14.5); White Blood Cell Count 12.1 10^3/uL (4.8-10.8)
[2024-11-18 05:37] LABS: ALT (SGPT) < 10 U/L (0-50); AST (SGOT) 22 U/L (17-59); Albumin 2.4 g/dl (3.5-5.0); Alkaline Phosphatase 304 U/L (38-126); Blood Urea Nitrogen 25 mg/dl (9-20); Carbon Dioxide 20 mmol/L (22-30); Chloride 120 mmol/L (98-107); Estimated Creatinine Clearance 64 ml/min; Glucose 73 mg/dl (70-99); Phosphorus 4.9 mg/dl (2.5-4.5); Potassium 4.3 mmol/L (3.5-5.1); Sodium 150 mmol/L (135-145); Total Bilirubin 1.2 mg/dl (0.2-1.3); Total Protein 6.5 g/dl (6.3-8.2); eGFR > 60.00
[2024-11-18 05:41] LABS: Vancomycin Random 14.5 ug/ml
--- NOTE | 2024-11-18 07:46 | W.PN.INTV ---
Today's Communication / Plan
Recommendations
Mechanical ventilation
Wean down sedation with propofol first, and reassess; may need to extubate on fentanyl + Precedex
Continue clonidine & Zanaflex
Off vasopressors since 11/17/2024
Follow-up blood + postoperative cultures
Continue antibiotics
DVT + stress ulcer prophylaxis
Continue ICU level care for this critically ill patient
Assessment
-
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
anxiety/depression and tobacco use disorder who presents with respiratory distress. [place] in [place] but came to his mother's house 1 day prior to arrival. The patient had gone to take shower and then passed on the
couch. Per the mother, Adriana, she gives him money every once in a while so that he can get something to eat but she believes that he has been using her money for drugs. He has almost no fat on him, and when he is at her house he bleeds all over
the place from his leg wounds. He had gone to rehab a few years ago and was doing well, but then relapsed and now is not doing good at all. Per the mother, he only does heroin/fentanyl, no alcohol use and no known benzo use. Because the patient
would not get up off the couch, the mother brought to the ER. Initially, pulse rate 93, respiratory rate 42, BP 125/101 and saturating 96% on 15 L/min via NRB. Initial labs showed WBC 29.5, Hb 5.3, platelet count 899, sodium 150, potassium 5.4,
creatinine 1.4, lactate 6.3, and urinalysis negative for signs of UTI. Blood cultures were collected, and CXR showed pneumonia in the left middle to lower lung. CT A/P confirmed left lower lobe pneumonia and some patchy groundglass/tree-in-bud in
his RML/RLL concerning for pneumonitis vs pneumonia. In the ER he was intubated for airway protection/hypoxia, and given 2 L IVF with NS 0.9%, vent, Zosyn, started on fentanyl drip, propofol and Levophed. He was admitted to the ICU for further
care with [facility] services consulted for additional management/recommendations.
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
Impression:
#Acute respiratory failure with hypoxia+ hypercapnia now on mechanical ventilation (intubated 11/17/2024)
#Sepsis due to pneumonia and LE wounds with regions of necrosis
#Necrotizing soft tissue infection involving left lower extremity s/p excisional debridement (performed 11/17/2024)
#Acute anemia (suspected to be from his bleeding lower extremity wounds in the setting of sepsis)
#Thrombocytosis � likely reactive due to sepsis and drug withdrawal
#HEYDI with mild hyperkalemia (potassium now normalized)
#Hyperchloremic/hypernatremic likely due to reduced oral intake with hypovolemia
#Lactic acidosis � now normalized
#Elevated ALP (423 on )
#Abnormal UDS positive for fentanyl, opiates, cocaine + THC)
#Chronic LE wounds with regions of necrosis and foul smelling
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
#PNA in LLL, possibly also in RML/RML however could have a pneumonitis from illicit drug use insufflation
#Tobacco use disorder
Plan:
- Continue with mechanical ventilation and perform SAT/SBT daily if clinically appropriate
- Maintain SpO2 >90-94%
- Aspiration precautions
- Maintain plateau pressure <30
- Adjust vent settings daily based on blood gas
- Daily CXR
- ETT suctioning as needed
- prn nebulized bronchodilators - not currently bronchospastic
- Continue antibiotics, currently on Zosyn + IV vancomycin
- Follow-up blood cultures (collected 11/17/2024); check MRSA swab + respiratory cultures + Legionella + strep pneumonia urine antigens
- Wound care to his lower extremities
- Trend WBC and monitor for fevers
- May need ID given his Hx of chronic OM of his R-elbow with Hx of MRSA and chronic LE wounds
- Surgery consulted on 11/17, and performed excisional debridement of his left lower extremity and cultures were sent.
- For his illicit drug use now with withdrawal, continue fentanyl and propofol drips
- Continue clonidine TID, up-titrating as needed
- Continue oxycodone 10mg PO q6hr; no need for klonopin given no benzos on UDS
- May need precedex gtt as he is becoming more hypertensive since being here in ICU
- Continue nicotine patch
- Maintain MAP>65
- Was on vasopressors on admission, but has been off since 11/17/2024
- Lactate is now normalized; no need to continue trending at this time
- Trend sNa --> initially started on D5W on admission, however he would fare better with a isotonic crystalloid as he likely has high Na from being volume depleted --> changed to NS
- Trend sNa and sCr
- Monitor UOP with strict I/O
- Replete electrolytes with K>4, Mg>2
- Maintain euglycemia with goal BG 140-180; check A1C
- Trend H/H and transfuse if needed to keep Hb>7g/dL; keep plt>50k, and INR<1.8
- Stress ulcer ppx: Continue PPI
- Early nutrition when possible to would hold off for now given distention of small bowel loops with suspected focal ileus seen on CT A/P from 11/17/2024
- DVT ppx: HSQ
Critical care statement: A total of 38 minutes of critical care time was provided for this patient today. This includes management of unstable vital signs, evaluation of the patient at bedside, reviewing the patient's pertinent medical records
including radiographs, microbiology, laboratory evaluations, and discussion with primary team, consultants, pharmacy, nutrition, physical therapy, case management, charge nurse, critical care nursing, and respiratory therapy.
Data:
CT Abd/Pelvis with IV contrast 11/17/2024:
Confluent parenchymal opacity within the left lower lobe of the lung, most likely pneumonia. Differential considerations of atelectasis or a combination of pneumonia and atelectasis.
Multiple small nodular and groundglass opacities throughout the visualized right lower lung, which is likely a diffuse small airway pneumonitis. Linear densities within the right lower lung compatible with discoid atelectasis.
Distention of the stomach. Distention of small bowel loops, most likely focal ileus. No evidence for free intraperitoneal air. Small bowel obstruction not excluded.
Hepatomegaly and splenomegaly, with slight increase in size of liver and spleen compared to prior CT in 2021.
There is heterogeneous decreased density of the liver, mainly in the right lobe and the superior to mid aspect. This could represent edema and/or fatty infiltration. Consider continued follow-up.
On delayed images, with lack of excretion of contrast into dilated calyces or ureters of either kidney, which would suggest diminished renal function/ATN. Continued serologic follow-up is advised.
Slightly enlarged left para-aortic lymph nodes, nonspecific, and could be reactive inflammatory nodes, but neoplastic nodes also possible. Consideration for continued follow-up.
CXR 11/18/2024: Patchy parenchymal opacities within both lungs, likely pneumonia. No evidence for associated pleural effusion.
Subjective Dataa
Subjective Data
Date of Service:
Date of Service: November 18, 2024
Chief Complaint: [facility] Follow Up
Subjective:
Patient seen and evaluate this morning. Yesterday patient underwent an excisional debridement of his left lower extremity by surgery. Remains intubated on AC/CMV at 18/450/5/40% with PIP 21 cmH2O, VTe 450 cc and breathing at 18 breaths/min.
Saturating 98% with HR 66 and BP via A-line: 123/64. BP via NIBP: 119/74. Sedated on propofol at 35 mcg/kg/min, Precedex at 1 mcg/kg/hr and fentanyl at 175 mcg/hr. Patient is well sedated and in no acute distress. Afebrile overnight.
Review of Systems
General: Unobtainable - Sedation (Intubated)
Objective Data
Data Reviewed
Vital Signs / I&O / Oxygen:
Vital Signs
Temp Pulse Resp BP Pulse Ox
97.6 F 76 18 125/89 99
11/18/24 07:23 11/18/24 06:29 11/17/24 21:30 11/18/24 06:29 11/18/24 04:00
Intake and Output
11/17/24 11/18/24 11/19/24
06:59 06:59 06:59
Intake Total 3381.4 / 3381.4
Output Total 630 / 630
Balance 2751.4 / 2751.4
SaO2 [A/C] 99
SaO2 99
Nasal Cannula flow liters per 15
minute
Physical Exam
General: Respiratory Distress (negative), Comfortable, Chills (negative) and Sweats (negative)
HEENT: Normocephalic and Anicteric
Cardiovascular: S1-S2 and Peripheral Edema (negative)
Respiratory: Wheeze (negative), Crackles (negative), Rhonchi (negative), Non-Labored Respirations and ET Tube (Mechanical breath sounds heard bilaterally)
GI: Soft, Non Distended, Non Tender and Normal Bowel Sounds
Neurology: Tremors (negative) and Other (Sedated)
Skin: Warm, Dry, Cyanosis (negative), Jaundice (negative) and Other (Bandages across lower extremities; underneath bandages are malodorous necrotic wounds)
Labs/Micro/Reports
Lab Data
11/18/24 04:41
11/18/24 04:41
Laboratory Results
11/17/24 11/17/24 11/18/24
09:08 10:10 04:51
PT 19.8 H
INR 1.66
APTT 44.4 H
pH 7.32 L 7.36
pCO2 43 34 L
pO2 411 H 188 H
HCO3 22.2 19.2 L
O2 Delivery Level 40%
Microbiology
11/17/24 16:24 Leg - Left Gram Stain - Preliminary
11/17/24 13:21 Endotracheal Gram Stain - Preliminary
--- NOTE | 2024-11-18 08:00 | PTCARENOTE ---
Received pt @ change of shift; assessment per charting- see flow sheet. Intubated/sedated/restrained w b/l soft limb/4 rails- see flow sheets. Prop/fent/dex/IVF infusing via R fem central line- see flow sheets. Plan for SAT/SBT if approp. Pt.'s
mother @ bedside, updated on plan of care. Safe environment maintained.
[2024-11-18] MEDS: NSS (PRESERVATIVE FREE) 10 ML IV (08:27)
[2024-11-18] MEDS: PROTONIX IV 40 MG IV (08:28)
[2024-11-18] MEDS: THIAMINE INJECTION 200 MG IV (08:28)
[2024-11-18] MEDS: HEPARIN 5000 UNITS SC ×2 (08:28→19:53)
[2024-11-18] MEDS: DAKIN'S SOLUTION 0.125% 1/4 STRENGTH 473 ML TOPICAL (08:29)
[2024-11-18] MEDS: NICODERM TRANSDERMAL 21 MG TRANSDERM (08:29)
[2024-11-18 09:48] LABS: Glycohemoglobin (HgbA1c) 5.4 % (4.0-5.6)
[2024-11-18 10:32] LABS: GGTP 132 U/L (15-73)
--- NOTE | 2024-11-18 10:35 | CM ---
Patient seen bedside w/ mother, Adriana. Initial assessment completed. Patient is a 29-year-old male with past medical history of osteomyelitis of the right elbow joint (chronic), left lower extremity wounds bilaterally, acute blood loss anemia,
anxiety, depression, substance use (including heroin), smoking, and vaping with UDS positive for fentanyl, cocaine, and marijuana presented with lethargy.
Patient intubated on 11/17
Per Adriana, patient is currently homeless at this time. Patient bud was living in [place] and has been struggling w/ addiction for over 5 years. Per Adriana, patient's drug of choice is heroin but states it's 'whatever he can get'. Adriana shared
patient is not allowed to live w/ her, he comes through to eat and shower but is not allowed in her home without her there. Adriana stated patient should go to IP rehab, preferably somewhere where public transportation is not accessible for him to
leave. Adriana shared that patient bud was at [facility] for IP rehab about 2 years ago where he did really well. Patient is agreeable to return at d/c for IP. CM to consult [facility] for IP D&A placement when hospitalization progresses.
Plan: IP D&A placement
--- NOTE | 2024-11-18 11:15 | PHA.VAN.FU ---
Vancomycin Assessment / Plan
- Assessment
Renal Function: Stable
WBC's are: Trending Down
In the past 24 hrs, patient has been: Afebrile
Concomitant Antimicrobials: Piperacillin-tazobactam
- Assessment - Therapeutic Drug Monitoring
Random Level: R = 14.5 ~ 19hrs post Vanc 1500mg
- Dosing Plan
Continue: Dose by level
Dosing by Level: Hold off on dosing today
- Monitoring Plan
Random Level: 3/30 AM
- Follow Up
Pharmacy will continue to follow.
Vancomycin Follow UP
- -
Patient Age: 29
Patient Sex: Male
Vancomycin Day #: 2
Indication: Endocarditis
Requesting Provider: Dr. Claudio
Pertinent Antimicrobial Allergies:
nkda
Height / Weight:
Height 5 ft 10 in
Actual Weight 54.4 kg
IBW in k
Pertinent Past Medical History: history of osteomyelitis, left lower extremity wounds, IV drug use,
- Vital Signs / Lab Results
Temp Pulse Resp BP Pulse Ox
98.6 F 68 18 117/80 99
11/18/24 11:02 11/18/24 07:45 11/18/24 07:45 11/18/24 07:30 11/18/24 08:00
Lab Results - Hematology
11/17/24 11/17/24 11/18/24
08:26 18:08 04:41
WBC 29.5 H 20.6 H 12.1 H
Lab Results - Chemistry
11/17/24 11/17/24 11/18/24
08:26 18:08 04:41
BUN 18 22 H 25 H
Creatinine 1.4 H 1.4 H 1.3
Estimated Creat Clear 59 59 64
Albumin 2.9 L 2.4 L
11/17/24 11/17/24 11/17/24
08:00 08:26 18:08
Lactic Acid Cancelled 6.3 H* 0.8
Microbiology Results
11/17/24 13:21 Respiratory Culture - Preliminary
Endotracheal Gram Stain - Preliminary
11/17/24 16:24 Wound Culture - Preliminary
Leg - Left Gram Stain - Preliminary
11/17/24 16:24 Anaerobic Culture - Preliminary
Leg - Left Culture pending. Anaerobic cultures are examined after 3
days incubation. Additional information to follow.
11/17/24 09:08 Blood Culture - Preliminary
Blood/Venous No Growth in 24 hours- Final report to follow
11/17/24 08:26 Blood Culture - Preliminary
Blood/Venous No Growth in 24 hours- Final report to follow
Therapeutic Drug Monitoring
Random Vancomycin 14.5 ug/ml 11/18/24 04:41
--- NOTE | 2024-11-18 12:01 | CHAP ---
Lokesh was sleeping, non-responsive. Mother, Adriana, was present. She is a woman of megan - welcomed prayer. Emotional and spiritual support provided, along with a prayer blanket in Lokesh' favorite color. Assurance of our on-going
availability given.
[2024-11-18 12:51] LABS: B.E. -5.6 mmol/L; HCO3 18.9 mmol/L (21-28); O2 Saturation % 99.6 % (94-98); PCO2 32 mmHg (35-48); PO2 143 mmHg (83-108); pH 7.38 (7.35-7.45)
[2024-11-18 12:56] LABS: Hematocrit 22.8 % (39.0-52.0); Mean Corp Hgb Conc. 30.7 g/dL (33.0-37.0); Mean Platelet Volume 8.3 fL (7.4-10.4); Platelet Count 526 10^3/uL (130-400); Red Blood Cell Count 3.68 10^6/uL (4.70-6.10); Red Cell Dist. Width 23.2 % (11.5-14.5); White Blood Cell Count 11.9 10^3/uL (4.8-10.8)
--- NOTE | 2024-11-18 13:25 | W.PN.UPDATE ---
Update Note
Progress Note Update
Pt placed onto a SBT and did well. Remains on precedex. Following commands, and is calm. He was successfully extubated to nasal cannula. He mainly wants a drink of water.
--- NOTE | 2024-11-18 14:00 | PTCARENOTE ---
SAT initiated; prop off @ 0845. S/P prop infusion off, pt. drowsy but following commands approp. SAT further; fent dose half'd @ 1015. Pt. tolerated fent dosage decrease; fent gtt off @ 1145. S/P all sedation off, pt. awake and remains following
commands; typing on phone to communicate. RT initiated SAT @ 1200 5/5/.40. Pt. tolerated wean for 1H; ABG drawn and sent to lab; results reviewed by Dr. Pace. Further orders received to extubate. RT extubated pt. @ 1315 to 4LNC; tolerating
extubated thus far. Pt. assisted into chair position in bed; able to turn self. Pt.'s brother bedside, updated. Pt.'s restraints removed; instructed on how to report care concerns and call steinberg in reach.
--- NOTE | 2024-11-18 14:06 | W.PN.HOSP.TC ---
Today's Communication/Plan
-
Continue antibiotics
Extubated today
Assessment / Plan
Assessment / Plan
Physical Exam
General: Appears Chronically Ill and Intubated
HEENT: Normocephalic
Respiratory: Other (On mechanical ventilation with equal air entry bilaterally)
Cardiac: S1/S2 and Tachycardia
GI: Distended (Mildly distended. Feels hard (not soft).)
Musculoskeletal: No Cyanosis
Skin: Other (Wounds on bilateral lower extremities)
Neuro: Alert. Awake.
Psych: Calm
Assessment/Plan
Septic Shock -- suspected secondary to pneumonia and lower extremity wounds particularly the left lower extremity
Necrotizing soft tissue infection involving left lower extremity s/p excisional debridement (performed 11/17/2024)
Suspected IV Drug Use using lower extremities
Lactic Acidosis
Left Mid to Lower Lung Atelectasis vs. Pneumonia -- could also have a pneumonitis from illicit drug use insufflation
Suspected Infection related to wounds from IVDU
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
History of MRSA
Acute Hypoxic Respiratory Failure
Acute Toxic Metabolic Encephalopathy Secondary to the Above
-Blood cultures x2 ordered -- follow-up
-Follow cultures ordered after LLE debridement
-Received Normal Saline Fluid bolus in the ER
-Received vancomycin and Zosyn in the ER
-Femoral Line placed in the ER
-Continue broad spectrum antibiotics with Vancomycin and Zosyn
-Patient has been extubated on 11/18/24
-Received vasopressors in the ER --> has been weaned off
-LLE with significant necrosis noted on the left side extending to the muscle
-General surgery consulted and performed bedside debridement
-Monitor in ICU
Anion Gap Metabolic Acidosis Suspected from Lactic Acidosis and Starvation
-Continue IV fluids
-Continue antibiotics
Acute Microcytic Anemia -- suspected acute blood loss anemia from his bleeding lower extremity wounds
-Hgb 5.3 initially
-2 units PRBCs ordered in the emergency room
-Recheck Hgb later this afternoon or evening after PRBC transfusion
-Check iron studies, suspected iron deficiency present
HEYDI with mild hyperkalemia (potassium now normalized)
Hypernatremia likely from reduced oral intake
-Received normal saline IV fluids initially
-Now, continue D5W IV fluids+Thiamine given hypernatremia
-Monitor for Refeeding Syndrome; monitor magnesium and phosphorus levels
Thrombocytosis � likely reactive due to sepsis and drug withdrawal
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
Left lower extremity chronic wounds bilaterally (LT>RT)
-LLE with significant necrosis noted on the left side extending to the muscle
-General surgery consulted and performed bedside debridement on 11/18/24
-Wound care consult. Dakin's wet to dry Kerlix wrap twice daily. Once patient's infection is cleared, can switch to Adaptic, gauze and Kerlix wrap.
Elevated ALP
Anxiety
Depression
Chronic IVDU with chronic opioid use disorder
Polysubstance use (including heroin)
Abnormal UDS positive for fentanyl, opiates, cocaine + THC
History of UDS positive for fentanyl, cocaine, and marijuana
-Continue Clonidine TID, increase as needed for withdrawal
-Continue oxycodone 10mg PO q6hr for withdrawal
Smoking
Tobacco use disorder
-Nicotine patch
Vaping
DVT Prophylaxis: Heparin Subq
Code Status: Full Code
Anticipated Discharge: > 48 hours
Subjective/Interval History
-
Date of Service: November 18, 2024
Patient was seen and examined. He appeared to be doing better today, more alert and trying to do things on his phone.
Objective Data
-
Labs:
Laboratory Results
11/18/24 11/18/24 11/18/24
04:41 04:51 12:41
WBC 12.1 H 11.9 H
Hgb 7.1 L 7.0 L
Hct 23.1 L 22.8 L
Plt Count 574 H 526 H
HCO3 19.2 L 18.9 L
Sodium 150 H
Potassium 4.3
Chloride 120 H
Carbon Dioxide 20 L
BUN 25 H
Creatinine 1.3
Glucose 73
Calcium 8.0 L
Total Bilirubin 1.2
AST 22
ALT < 10
Alkaline Phosphatase 304 H
11/18/24
21:00
WBC
Hgb
Hct
Plt Count
HCO3
Sodium Pending
Potassium Pending
Chloride Pending
Carbon Dioxide Pending
BUN Pending
Creatinine Pending
Glucose Pending
Calcium Pending
Total Bilirubin
AST
ALT
Alkaline Phosphatase
Vital Signs:
Vital Signs
Temp Pulse Resp BP Pulse Ox
98.6 F 82 15 129/93 100
11/18/24 11:02 11/18/24 12:59 11/18/24 12:46 11/18/24 12:59 11/18/24 13:19
I&O
11/17/24 11/18/24 11/19/24
06:59 06:59 06:59
Intake Total 3381.4 / 3523.0 1148.1 / 1148.1
Output Total 630 / 705 475 / 475
Balance 2751.4 / 2818.0 673.1 / 673.1
[2024-11-18] MEDS: D5W 1000 IV (18:47)
--- NOTE | 2024-11-18 19:00 | PTCARENOTE ---
pt.'s R rad A-line removed per orders. R fem TL remains in place; dressing c/d/i. VAT inserted #22 L AC. Pt. tolerating ice chips/sips of water w/out any s/s of aspiration. Pt. using call steinberg approp; remains w in reach. Next shift updated.
[2024-11-18] MEDS: ROXICODONE 20 MG PO (19:50)
[2024-11-18] MEDS: CATAPRES 0.2 MG PO (19:51)
[2024-11-18] MEDS: ZANAFLEX 2 MG PO (19:51)
--- NOTE | 2024-11-18 21:48 | PTCARENOTE ---
Patient received in bed on Precedex gtt at 0.6 mcg/kg/hr. AAOx4 and able to make his needs known. Plan of care for the shift reviewed with the patient. MAEx4. Flat affect. NSR on the monitor. Afebrile. Rhonchi throughout. SpO2 at 100% on 4L/O2/nc.
+BS. Flores catheter is draining yellow urine. The patient took his scheduled medications without difficulty. Rt nare NGT placement verified and clamped. Pt's drinking small sips of water and tolerating it well. All needs are met at this time. Bed
in the lowest position. Call steinberg and personal belongings are within reach.
[2024-11-18 23:04] LABS: Blood Urea Nitrogen 29 mg/dl (9-20); Carbon Dioxide 19 mmol/L (22-30); Chloride 117 mmol/L (98-107); Estimated Creatinine Clearance 60 ml/min; Glucose 85 mg/dl (70-99); Potassium 4.3 mmol/L (3.5-5.1); Sodium 146 mmol/L (135-145); eGFR > 60.00
[2024-11-19] VITALS (22 sets, daily range): BP systolic 114–182; BP diastolic 78–125; BMI 17.4
[2024-11-19] MEDS: ROXICODONE 20 MG PO ×5 (00:26→23:47)
[2024-11-19] MEDS: ZANAFLEX 2 MG PO ×5 (00:26→23:49)
[2024-11-19] MEDS: CATAPRES 0.2 MG PO ×5 (00:26→23:48)
--- NOTE | 2024-11-19 00:53 | PTCARENOTE ---
Reassessed the patient. Remains flat affect. NSR on the monitor. No changes from the previous assessment. Turns and repositions himself. Pt's mother, Karlie, updated via the phone.
[2024-11-19] MEDS: ZOSYN 100 IV ×4 (02:18→20:20)
--- NOTE | 2024-11-19 04:57 | PTCARENOTE ---
Patient reassessed. No changes from the previous assessment.
[2024-11-19 05:22] LABS: % Basophils 0.5 % (0-2); % Eosinophils 1.9 % (0-6); % Immature Granulocytes 0.5 % (0-0.5); % Lymphocytes 9.1 % (20.5-51.1); % Monocytes 3.9 % (1.7-9.3); % Neutrophils 84.1 % (42.2-75.2); Absolute Basophils 0.1 10^3/uL (0-0.2); Absolute Eosinophils 0.3 10^3/uL (0-0.7); Absolute Immature Granulocytes 0.1 10^3/uL (0-0.05); Absolute Lymphocytes 1.4 10^3/uL (1.2-3.4); Absolute Monocytes 0.6 10^3/uL (0.1-0.6); Absolute Neutrophils 12.9 10^3/uL (1.4-6.5); Hematocrit 26.2 % (39.0-52.0); Hemoglobin 7.6 g/dL (13.0-18.0); Mean Corpuscular Hgb 18.4 pg (27.0-31.0); Mean Corpuscular Volume 63.4 fL (80.0-94.0); Mean Platelet Volume 8.4 fL (7.4-10.4); Nucleated Red Blood Cells % 0.1 % (-); Platelet Count 538 10^3/uL (130-400); Red Blood Cell Count 4.13 10^6/uL (4.70-6.10); Red Cell Dist. Width 23.9 % (11.5-14.5); White Blood Cell Count 15.3 10^3/uL (4.8-10.8)
[2024-11-19 05:25] LABS: ALT (SGPT) 12 U/L (0-50); AST (SGOT) 27 U/L (17-59); Albumin 2.5 g/dl (3.5-5.0); Alkaline Phosphatase 276 U/L (38-126); Blood Urea Nitrogen 29 mg/dl (9-20); Calcium 8.1 mg/dl (8.4-10.2); Carbon Dioxide 18 mmol/L (22-30); Chloride 116 mmol/L (98-107); Estimated Creatinine Clearance 60 ml/min; Glucose 94 mg/dl (70-99); Magnesium 1.9 mg/dl (1.6-2.3); Phosphorus 5.5 mg/dl (2.5-4.5); Potassium 4.4 mmol/L (3.5-5.1); Sodium 145 mmol/L (135-145); Total Bilirubin 1.5 mg/dl (0.2-1.3); Total Protein 6.8 g/dl (6.3-8.2); eGFR > 60.00
[2024-11-19 05:30] LABS: Vancomycin Random 7.3 ug/ml
--- NOTE | 2024-11-19 06:53 | W.PN.HOSP.TC ---
Today's Communication/Plan
-
IV Abx
renew IVF
NG for Ileus
Assessment / Plan
Assessment / Plan
Physical Exam
General: Appears Chronically Ill
HEENT: Normocephalic
Respiratory: Good air, no wheezes
Cardiac: S1/S2 and Tachycardia
GI: Sofr, non tender, not distended.
Musculoskeletal: No Cyanosis
, + Flores, no hematuria
Skin: Other (Wounds on bilateral lower extremities with clean dressing
Neuro: Alert. Awake.
Psych: Calm
Assessment/Plan
Septic Shock --due to pneumonia and lower extremity necrotizing wounds particularly the left lower extremity, use of Xylazine?
Necrotizing soft tissue infection involving left lower extremity s/p excisional debridement (performed 11/17/2024)
History of IVDA/heroin use, Use using lower extremities
Lactic Acidosis
Left Mid to Lower Lung Atelectasis vs. Pneumonia -- could also have a pneumonitis from illicit drug use insufflation
Suspected Infection related to wounds from IVDU
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
History of MRSA
Acute Hypoxic Respiratory Failure
Acute Toxic Metabolic Encephalopathy Secondary to the Above
-Blood cultures x2 ordered NGTD
s/p Normal Saline Fluid bolus in the ER
-Received vancomycin and Zosyn in the ER
-Femoral Line placed in the ER
-Continue broad spectrum antibiotics with Vancomycin and Zosyn
-Patient has been extubated on 11/18/24
-Received vasopressors in the ER --> has been weaned off
-LLE with significant necrosis noted on the left side extending to the muscle
-General surgery consulted and performed bedside debridement
-Monitor in ICU
Consult ID
# Ileus
c/w NG, IVF, f/w surgery
# severe protein calorie malnutrition
#Anion Gap Metabolic Acidosis Suspected from Lactic Acidosis and Starvation
-Continue IV fluids
-Continue antibiotics
#Acute Microcytic Anemia -- acute blood loss anemia from his bleeding lower extremity wounds
-Hgb 5.3 initially
-2 units PRBCs given
-Check iron studies, suspected iron deficiency present
#HEYDI with mild hyperkalemia (potassium now normalized)
likely ATN from drugs
Hypernatremia likely from reduced oral intake
-Now, continue D5W IV fluids+Thiamine given hypernatremia
-Monitor for Refeeding Syndrome; monitor magnesium and phosphorus levels
#Thrombocytosis � likely reactive due to sepsis and drug withdrawal
#History of osteomyelitis of the right elbow joint (chronic)/ Left lower extremity chronic wounds bilaterally (LT>RT)
-LLE with significant necrosis noted on the left side extending to the muscle
-General surgery consulted and performed bedside debridement on 11/18/24
-Wound care consult. Dakin's wet to dry Kerlix wrap twice daily. Once patient's infection is cleared, can switch to Adaptic, gauze and Kerlix wrap.
#Anxiety/Depression
Consult psych once out of ICU
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
Polysubstance use (including heroin)
Abnormal UDS positive for fentanyl, opiates, cocaine + THC
History of UDS positive for fentanyl, cocaine, and marijuana
-Continue Clonidine QID,
-Continue oxycodone 20mg PO q6hr for withdrawal
-c/w Zanaflex QID
Smoking
Tobacco use disorder
-Nicotine patch
Vaping
DVT Prophylaxis: Heparin Subq
Code Status: Full Code
Total time spent to see the patient, examined the patient, reviewed the data and lab results, discuss treatment plan with patient and nursing staff around 55 minutes
Anticipated Discharge: > 48 hours
Subjective/Interval History
-
Date of Service: November 19, 2024
No chest pain or abd pain
Objective Data
-
Labs:
Laboratory Results
11/18/24 11/19/24
22:33 04:40
WBC 15.3 H
Hgb 7.6 L
Hct 26.2 L
Plt Count 538 H
Sodium 146 H 145
Potassium 4.3 4.4
Chloride 117 H 116 H
Carbon Dioxide 19 L 18 L
BUN 29 H 29 H
Creatinine 1.4 H 1.4 H
Glucose 85 94
Calcium 8.0 L 8.1 L
Total Bilirubin 1.5 H
AST 27
ALT 12
Alkaline Phosphatase 276 H
Vital Signs:
Vital Signs
Temp Pulse Resp BP Pulse Ox
98.1 F 69 16 153/112 100
11/19/24 03:38 11/19/24 06:15 11/19/24 06:15 11/19/24 06:11 11/19/24 06:15
I&O
11/17/24 11/18/24 11/19/24
06:59 06:59 06:59
Intake Total 3381.4 / 3523.0 3501.2 / 3501.2
Output Total 630 / 705 1885 / 188
Balance 2751.4 / 2818.0 1616.2 / 1616.2
[2024-11-19 07:04] LABS: Anisocytosis 2+; Hypochromasia 2+; Microcytosis 2+; Normal RBC Morphology No; Ovalocytes 1+; Target Cells 2+
[2024-11-19 07:05] LABS: Polychromasia Occasional
--- NOTE | 2024-11-19 08:14 | W.PN.INTV ---
Today's Communication / Plan
Recommendations
Extubated on 11/18
Continue with supportive care for now with oxycodone, clonidine, Zanaflex
Off vasopressors since 11/17/2024
Follow-up blood Cx; respiratory culture growing Staph aureus to follow-up sensitivities
Polymicrobial species growing in left leg debridement cultures � ID consulted
Starting methadone; continue to trend QTc while keeping K>4, Mg>2
DVT prophylaxis
Stable for downgrade out of ICU to telemetry. He remains a high AMA risk. Would not allow him to leave until it has been approximately 12 hours since Precedex was discontinued which was around 6 AM on 11/19/2024. Hopefully he will stay given his
pneumonia as well as his sepsis with lower extremity necrotic wounds that we are still treating as well as HEYDI; will start methadone while hospitalized and he will need to go to a methadone clinic s/p discharge. If he continues to use IV drugs then
he is risking his life with continued IV drug abuse -I told this to him today.
No additional recommendations at this time. Child And Adolescent Psychiatrist/Pulmonary service will now sign off. Please reconsult if there are any additional questions/concerns, or if patient's respiratory status deteriorates.
Of note, his friend, Shaan, is at bedside who is a filmmaker and making a documentary about [employer].
Assessment
-
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
anxiety/depression and tobacco use disorder who presents with respiratory distress. [place] in [place] but came to his mother's house 1 day prior to arrival. The patient had gone to take shower and then passed on the
couch. Per the mother, Adriana, she gives him money every once in a while so that he can get something to eat but she believes that he has been using her money for drugs. He has almost no fat on him, and when he is at her house he bleeds all over
the place from his leg wounds. He had gone to rehab a few years ago and was doing well, but then relapsed and now is not doing good at all. Per the mother, he only does heroin/fentanyl, no alcohol use and no known benzo use. Because the patient
would not get up off the couch, the mother brought to the ER. Initially, pulse rate 93, respiratory rate 42, BP 125/101 and saturating 96% on 15 L/min via NRB. Initial labs showed WBC 29.5, Hb 5.3, platelet count 899, sodium 150, potassium 5.4,
creatinine 1.4, lactate 6.3, and urinalysis negative for signs of UTI. Blood cultures were collected, and CXR showed pneumonia in the left middle to lower lung. CT A/P confirmed left lower lobe pneumonia and some patchy groundglass/tree-in-bud in
his RML/RLL concerning for pneumonitis vs pneumonia. In the ER he was intubated for airway protection/hypoxia, and given 2 L IVF with NS 0.9%, vent, Zosyn, started on fentanyl drip, propofol and Levophed. He was admitted to the ICU for further
care with Child And Adolescent Psychiatrist services consulted for additional management/recommendations.
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
Impression:
#Acute respiratory failure with hypoxia+ hypercapnia requiring mechanical ventilation (intubated 11/17/2024; extubated 11/18/2024)
#Sepsis due to pneumonia (Staph aureus) and LE wounds with regions of necrosis
#Necrotizing soft tissue infection involving left lower extremity s/p excisional debridement (performed 11/17/2024)
#Acute anemia (suspected to be from his bleeding lower extremity wounds in the setting of sepsis) with iron deficiency
#Thrombocytosis � likely reactive due to sepsis and drug withdrawal
#HEYDI with mild hyperkalemia (potassium now normalized)
#Hyperchloremic/hypernatremic likely due to reduced oral intake with hypovolemia
#Lactic acidosis � now normalized
#Elevated ALP (423 on )
#Abnormal UDS positive for fentanyl, opiates, cocaine + THC
#Chronic LE wounds with regions of necrosis that is foul smelling
#Chronic IVDU with chronic opioid use disorder (he denies that he sniffs drugs, and mainly injects into arms/legs)
#PNA in LLL, possibly also in RML/RML however could have a pneumonitis from illicit drug use insufflation (which he denies)
#Tobacco use disorder
Plan:
- Patient was successfully extubated to nasal cannula on 11/18/2024, and is currently breathing comfortably and saturating 100% on 4 L/min
- Continue to wean down supplemental O2 flow rate while maintaining SpO2 >90-94%
- Aspiration precautions
- prn nebulized bronchodilators - not currently bronchospastic
- Continue antibiotics, currently on Zosyn + IV vancomycin
- Follow-up blood cultures (collected 11/17/2024 - NGTD); MRSA swab negative; respiratory cultures from 11/17/2024 is growing Staph aureus to follow-up sensitivities
- Check Legionella + strep pneumonia urine antigens
- Wound care to his lower extremities
- Trend WBC and monitor for fevers
- May need ID given his Hx of chronic OM of his R-elbow with Hx of MRSA and chronic LE wounds
- Surgery consulted on 11/17, and performed excisional debridement of his left lower extremity and cultures were sent
- LLE wound culture is polymicrobial with Proteus, group C strep + Streptococcus pyogenous --> consult ID
- For his illicit drug use now with withdrawal, he was on fentanyl and propofol drips --> those are now off since he was extubated on 11/18
- He is currently on oxycodone 20mg PO q6hr with Zanaflex 2mg PO q6hr, and clonidine 0.2 mg PO q6hr and he appears comfortable
- He wishes to start methadone -I did discuss this with the pharmacist and we will start him on 30 mg today while trending QTc; will raise as tolerated to 40 mg on 11/20 and then 50 mg after that.
- He will need to go to a methadone clinic after discharge which he says he is amenable to
- High risk for AMA
- Up-titrating clonidine as needed
- No need for klonopin given no benzos on UDS
- Continue nicotine patch
- Maintain MAP>65
- Was on vasopressors on admission, but has been off since 11/17/2024
- Lactate is now normalized; no need to continue trending at this time
- Trend sNa --> initially started on D5W on admission, however he would fare better with a isotonic crystalloid as he likely has high Na from being volume depleted --> changed to NS
- Now back on D5W on 11/18, which can be stopped today as his sodium is now normal as of 11/19
- Trend sNa and sCr
- Monitor UOP with strict I/O
- Replete electrolytes with K>4, Mg>2
- Maintain euglycemia with goal BG 140-180; check A1C
- Trend H/H and transfuse if needed to keep Hb>7g/dL; keep plt>50k, and INR<1.8
- Stress ulcer ppx: No longer indicated given no longer intubated and not on pressors or in shock
- Start PO diet assuming RN performs a bedside swallow screen and he passes this
- Of note, he did have distended small bowel loops with suspected focal ileus seen on CT A/P from 11/17/2024 --> need to monitor for diet intolerance
- DVT ppx: HSQ
Right femoral CVC will need to be removed and midline will also need to be removed prior to downgrade. IV team will also place another IV.
Patient doing well, stable for downgrade to telemetry. He does still remain a high AMA risk. He will need to wait at least 12 hours after the Precedex was discontinued before he can leave AMA. Once downgraded then we will sign off at that time.
Please call back if there are any questions or concerns.
Data:
CT Abd/Pelvis with IV contrast 11/17/2024:
Confluent parenchymal opacity within the left lower lobe of the lung, most likely pneumonia. Differential considerations of atelectasis or a combination of pneumonia and atelectasis.
Multiple small nodular and groundglass opacities throughout the visualized right lower lung, which is likely a diffuse small airway pneumonitis. Linear densities within the right lower lung compatible with discoid atelectasis.
Distention of the stomach. Distention of small bowel loops, most likely focal ileus. No evidence for free intraperitoneal air. Small bowel obstruction not excluded.
Hepatomegaly and splenomegaly, with slight increase in size of liver and spleen compared to prior CT in 2021.
There is heterogeneous decreased density of the liver, mainly in the right lobe and the superior to mid aspect. This could represent edema and/or fatty infiltration. Consider continued follow-up.
On delayed images, with lack of excretion of contrast into dilated calyces or ureters of either kidney, which would suggest diminished renal function/ATN. Continued serologic follow-up is advised.
Slightly enlarged left para-aortic lymph nodes, nonspecific, and could be reactive inflammatory nodes, but neoplastic nodes also possible. Consideration for continued follow-up.
CXR 11/18/2024: Patchy parenchymal opacities within both lungs, likely pneumonia. No evidence for associated pleural effusion.
Total time spent today was 76 minutes for this encounter. Time includes reviewing laboratory test/imaging results, reviewing pertinent medical records, obtaining and reviewing medical history, performing an appropriate exam, ordering medications,
tests and procedures. Time also includes documentation of this encounter, coordinating patient care and communicating with other healthcare professionals. Total time does not include separately billed tests performed on this date of service.
Subjective Dataa
Subjective Data
Date of Service:
Date of Service: November 19, 2024
Chief Complaint: Child And Adolescent Psychiatrist Follow Up
Subjective:
Patient seen and evaluated today at bedside. Afebrile overnight. Extubated yesterday to nasal cannula and no acute events reported from overnight. Sodium improved today at 145. Creatinine remains slightly elevated 1.4. T. bili also rising, now
1.5. Staph aureus growing in his ETT culture. He feels well, no pain reported. His friend, Shaan, is at bedside and all questions were answered.
Review of Systems
General: Other (Negative unless mentioned above)
Objective Data
Data Reviewed
Vital Signs / I&O / Oxygen:
Vital Signs
Temp Pulse Resp BP Pulse Ox
97.5 F 69 16 153/112 100
11/19/24 07:50 11/19/24 06:15 11/19/24 06:15 11/19/24 06:11 11/19/24 06:15
Intake and Output
11/18/24 11/19/24 11/20/24
06:59 06:59 06:59
Intake Total 3381.4 / 3523.0 3501.2 / 3501.2
Output Total 630 / 705 1885 / 1885
Balance 2751.4 / 2818.0 1616.2 / 1616.2
SaO2 [CPAP] 99
SaO2 [A/C] 99
SaO2 100
Nasal Cannula flow liters per 4
minute
Physical Exam
General: Respiratory Distress (negative), Comfortable, Chills (negative) and Sweats (negative)
HEENT: Normocephalic and Anicteric
Cardiovascular: S1-S2 and Peripheral Edema (negative)
Respiratory: Wheeze (negative), Crackles (Bilateral), Rhonchi (negative) and Non-Labored Respirations
GI: Soft, Non Distended, Non Tender and Normal Bowel Sounds
Neurology: AO x 3 and Tremors (negative)
Skin: Warm, Dry, Cyanosis (negative), Jaundice (negative) and Other (Bandages across lower extremities; underneath bandages are malodorous necrotic wounds with oozing sanguinous fluid)
Labs/Micro/Reports
Lab Data
11/19/24 04:40
11/19/24 04:40
Laboratory Results
11/18/24
12:41
pH 7.38
pCO2 32 L
pO2 143 H
HCO3 18.9 L
O2 Delivery Level
Microbiology
11/17/24 13:21 Endotracheal Respiratory Culture - Preliminary
Staphylococcus aureus
11/17/24 13:21 Endotracheal Gram Stain - Preliminary
11/17/24 09:08 Blood/Venous Blood Culture - Preliminary
No Growth in 48 hours- Final report to follow
11/17/24 08:26 Blood/Venous Blood Culture - Preliminary
No Growth in 48 hours- Final report to follow
11/17/24 13:16 Nose MRSA Screen - Final
No Methicillin Resistant Staphylococcus aureus isolated.
11/17/24 16:24 Leg - Left Wound Culture - Preliminary
11/17/24 16:24 Leg - Left Gram Stain - Preliminary
11/17/24 16:24 Leg - Left Anaerobic Culture - Preliminary
Culture pending. Anaerobic cultures are examined after 3
days incubation. Additional information to follow.
--- NOTE | 2024-11-19 08:30 | PTCARENOTE ---
Received pt @ change of shift. Drowsy, awakens to verbal stim; denies pain; GAGE/gen weakness but able to turn self in bed. SR on monitor. Weaned off O2 to RA, SpO2 maintaining 99%. Occ supply technician moist cough/ +BS, cachectic. NGT clamped. Tolerating
sips/chips/meds. Flores in place draining yellow urine. LE dressing c/d/i. R fem TL w IVF infusing. Pt.'s mom to bedside this AM, update on plan of care. Call idris keller in reach.
--- NOTE | 2024-11-19 08:50 | PHA.VAN.FU ---
Vancomycin Assessment / Plan
- Assessment
Renal Function: Stable
WBC's are: Trending Up
In the past 24 hrs, patient has been: Afebrile
Concomitant Antimicrobials: Piperacillin-tazobactam
- Assessment - Therapeutic Drug Monitoring
Random Level: 7.3 ~ 43 hrs post Vanc 1500mg
- Dosing Plan
Continue: Dose by level
Dosing by Level: Re-dose today (Vanc 750mg--13.6mg/kg)
- Monitoring Plan
Random Level: 11/20 AM
- Follow Up
Pharmacy will continue to follow.
Vancomycin Follow UP
- -
Patient Age: 29
Patient Sex: Male
Vancomycin Day #: 3
Indication: Endocarditis
Requesting Provider: Dr. Claudio
Pertinent Antimicrobial Allergies:
nkda
Height / Weight:
Height 5 ft 10 in
Actual Weight 55.1 kg
IBW in k
Pertinent Past Medical History: history of osteomyelitis, left lower extremity wounds, IV drug use,
- Vital Signs / Lab Results
Temp Pulse Resp BP Pulse Ox
97.5 F 69 16 153/112 100
11/19/24 07:50 11/19/24 06:15 11/19/24 06:15 11/19/24 06:11 11/19/24 06:15
Lab Results - Hematology
11/17/24 11/17/24 11/18/24
08:26 18:08 04:41
WBC 29.5 H 20.6 H 12.1 H
11/18/24 11/19/24
12:41 04:40
WBC 11.9 H 15.3 H
Lab Results - Chemistry
11/17/24 11/17/24 11/18/24
08:26 18:08 04:41
BUN 18 22 H 25 H
Creatinine 1.4 H 1.4 H 1.3
Estimated Creat Clear 59 59 64
Albumin 2.9 L 2.4 L
11/18/24 11/19/24
22:33 04:40
BUN 29 H 29 H
Creatinine 1.4 H 1.4 H
Estimated Creat Clear 60 60
Albumin 2.5 L
11/17/24 11/17/24 11/17/24
08:00 08:26 18:08
Lactic Acid Cancelled 6.3 H* 0.8
Microbiology Results
11/17/24 08:26 Blood Culture - Preliminary
Blood/Venous No Growth in 48 hours- Final report to follow
11/17/24 13:16 MRSA Screen - Final
Nose No Methicillin Resistant Staphylococcus aureus isolated.
11/17/24 13:21 Respiratory Culture - Preliminary
Endotracheal Gram Stain - Preliminary
11/17/24 16:24 Wound Culture - Preliminary
Leg - Left Gram Stain - Preliminary
11/17/24 16:24 Anaerobic Culture - Preliminary
Leg - Left Culture pending. Anaerobic cultures are examined after 3
days incubation. Additional information to follow.
11/17/24 09:08 Blood Culture - Preliminary
Blood/Venous No Growth in 24 hours- Final report to follow
Therapeutic Drug Monitoring
Random Vancomycin 7.3 ug/ml 11/19/24 04:40
[2024-11-19] MEDS: DAKIN'S SOLUTION 0.125% 1/4 STRENGTH 473 ML TOPICAL (08:54)
[2024-11-19] MEDS: NSS (PRESERVATIVE FREE) 10 ML IV (08:54)
[2024-11-19] MEDS: PROTONIX IV 40 MG IV (08:54)
[2024-11-19] MEDS: THIAMINE INJECTION 200 MG IV (08:55)
[2024-11-19] MEDS: HEPARIN 5000 UNITS SC ×2 (08:55→20:20)
[2024-11-19] MEDS: NICODERM TRANSDERMAL 21 MG TRANSDERM (08:55)
[2024-11-19] MEDS: D5W IV (10:50)
[2024-11-19] MEDS: VANCOCIN 150 IV (11:36)
[2024-11-19] MEDS: FERRLECIT 110 MG IV (13:21)
--- NOTE | 2024-11-19 13:31 | PTCARENOTE ---
Addendum entered by Devi Brandon RN 11/19/24 13:34:
Remains on RA; SpO2 97%, no s/s of resp distress.
Original Note:
NGT removed per orders. Pt.'s diet advanced per orders and tolerating intake. Flores catheter removed as well; pt. urinating in urinal approp; urine sample sent to lab; awaiting results. VAT notified for possible midline placement; awaiting to
bedside. Pt. w support person @ bedside. Call idris keller in reach.
--- NOTE | 2024-11-19 14:49 | W.PN.UPDATE ---
Update Note
Progress Note Update
Right femoral CVC removed without incident. IV team was able to place a 2nd PIV prior to removal.
[2024-11-19] MEDS: MAG-TAB SR 84 MG PO (15:20)
[2024-11-19] MEDS: DOLOPHINE 30 MG PO (15:20)
--- NOTE | 2024-11-19 15:30 | CON.ID ---
Consultation
-
Date/Time Consultation Requested: November 19, 2024 1357
Date/Time Consultation Performed: November 19, 2024 1530
Requesting Provider: Dr. Juan M Pace
Performing Provider: Dr. Mulu Samuel
Reason for Consultation: IVDU with extensive wounds
Chief Complaint / Past History
Chief Complaint
Lethargy
History of Present Illness
29-year-old male IV drug user, chronic left greater than right lower extremity wounds from IV drug use who presented to the hospital on November 17 with lethargy and respiratory distress. T=96. White count was 29.5. Hemoglobin 5.3. Lactic acid 6.3.
Chest x-ray showed pneumonia. Patient was intubated for airway protection. He was started on vancomycin and Zosyn. Patient noted to have extensive left lower extremity necrotic large wound. He was taken to the OR November 17 status post excisional
debridement of the left lower extremity to healthy tissue. Culture growing polymicrobial organisms. Sputum culture positive for Staphylococcus aureus. Patient was extubated yesterday. He reports he relapsed more than a year ago. He injects
drugs on his legs, none on his upper arms. He lives in [facility]. He states he always uses clean needles. He does not share needles. Positive cough. Positive diarrhea from withdrawal. No abdominal pain. No urine symptoms.
Past History
Additional Past Medical History:
IV drug user
Hepatitis C, untreated
History of right elbow osteomyelitis from IV drug use
Chronic left>right lower extremity wounds from IV drug use
Anxiety/depression
Additional Past Surgical History:
Appendectomy
Allergy History:
No Known Allergies Allergy (Verified 11/17/24 08:16)
Medications Reviewed: Yes
Current Antibiotics:
Zosyn day #3
Vancomycin day 3
Social History
Tobacco: Smoker
Drug: Marijuana, Cocaine, Narcotics and IVDA (heroin/fentanyl)
Personal: Single
Employment: Not Employed
Family History
Family History: Not Pertinent
Review of Systems
Review of Systems
General: Chills and Change in Appetite; Negative Fever
HEENT: Negative Sinus Problems, Headache or Pharyngitis
Respiratory: Dyspnea and Cough
Gasteroenterology: Nausea and Diarrhea
Genital / Urological: Negative Dysuria or Flank Pain
Endocrine: Weakness and Fatigue
All systems: All other systems were reviewed and were negative
Vital Signs
Temp Pulse Resp BP Pulse Ox
98.3 F 69 16 153/112 98
11/19/24 11:04 11/19/24 06:15 11/19/24 06:15 11/19/24 06:11 11/19/24 13:09
Physical Exam
Physical Exam
Constitutional: Acutely Ill, Chronically Ill and Cachetic (Severely )
Head: Other (No frontal or max or sinus tenderness)
Eyes: No Conjunctival Hemorrhage and Sclera Anicteric
Oral: Poor Dentition
Cardiovascular: Regular Rate and S1/S2
Pulmonary: Rales (Crackles)
Gastrointestinal: Soft, Non Tender, Non Distended and Normal Bowel Sounds
Genito-Urinary: Negative CVA Tenderness
Wound: Other (Right lower extremity wound with pink granulation tissue. Left lower extremity large wound encompassing below the knee to above the ankle with pink wound bed containing yellow slough, no longer with significant necrosis compared to
admission photos.)
Neurological: Awake
Lab / Diagnostic Study Results
11/19/24 04:40
11/19/24 04:40
Abs Immat Gran (auto) 0.1 10^3/uL (0-0.05) H 11/19/24 04:40
Absolute Neuts (auto) 12.9 10^3/uL (1.4-6.5) H 11/19/24 04:40
Absolute Lymphs (auto) 1.4 10^3/uL (1.2-3.4) 11/19/24 04:40
Absolute Monos (auto) 0.6 10^3/uL (0.1-0.6) 11/19/24 04:40
Absolute Basos (auto) 0.1 10^3/uL (0-0.2) 11/19/24 04:40
Immature Gran % 0.5 % (0-0.5) 11/19/24 04:40
Neutrophils % 84.1 % (42.2-75.2) H 11/19/24 04:40
Lymphocytes % 9.1 % (20.5-51.1) L 11/19/24 04:40
Monocytes % 3.9 % (1.7-9.3) 11/19/24 04:40
Eosinophils % 1.9 % (0-6) 11/19/24 04:40
Basophils % 0.5 % (0-2) 11/19/24 04:40
PT 19.8 Sec (11.4-14.6) H 11/17/24 09:08
INR 1.66 11/17/24 09:08
Lactic Acid 0.8 mmol/L (0.7-2.0) 11/17/24 18:08
Ur Squamous Epith Cells 3-5 /LPF (Few) 11/17/24 09:08
Microbiology Results
Micro:
11/19/24 12:43 Legionella Urinary Antigen - Final
Urine Negative for Legionella pneumophila Serogroup 1 antigen.
A negative result does not rule out the possiblity of
Legionella infection due to other serogroups or species of
Legionella. Clinical correlation is recommended.
Streptococcus pneumoniae Antigen (M - Final
Negative for Streptococcus pneumoniae antigen.
A negative result does not exclude infection with
Streptococcus pneumoniae. Clinical correlation is
recommended.
11/17/24 16:24 Wound Culture - Preliminary
Leg - Left Proteus species
Gram negative bacilli
Group C Streptococcus
Streptococcus pyogenes
Gram Stain - Preliminary
11/17/24 13:21 Respiratory Culture - Preliminary
Endotracheal Staphylococcus aureus
Gram Stain - Preliminary
11/17/24 09:08 Blood Culture - Preliminary
Blood/Venous No Growth in 48 hours- Final report to follow
11/17/24 08:26 Blood Culture - Preliminary
Blood/Venous No Growth in 48 hours- Final report to follow
11/17/24 13:16 MRSA Screen - Final
Nose No Methicillin Resistant Staphylococcus aureus isolated.
11/17/24 16:24 Anaerobic Culture - Preliminary
Leg - Left Culture pending. Anaerobic cultures are examined after 3
days incubation. Additional information to follow.
11/18/24 CXR: Patchy parenchymal opacities within both lungs, likely pneumonia. No evidence for associated pleural effusion.
11/17/24 CT a/p: Confluent parenchymal opacity within the left lower lobe of the lung, most likely pneumonia. Differential considerations of atelectasis or a combination of pneumonia and atelectasis. Multiple small nodular and groundglass opacities
throughout the visualized right lower lung, which is likely a diffuse small airway pneumonitis. Linear densities within the right lower lung compatible with discoid atelectasis. Distention of the stomach. Distention of small bowel loops, most likely
focal ileus. No evidence for free intraperitoneal air. Small bowel obstruction not excluded. Hepatomegaly and splenomegaly, with slight increase in size of liver and spleen compared to prior CT in 2021.
Assessment / Plan
# Left lower extremity extensive necrotizing wound from IV drug use
-November 17 status post OR excisional debridement to healthy tissue. Wound appearance improved since then
-OR culture with polymicrobial organisms including group A strep, Proteus, gram-negative rods
-Agree with Zosyn (d3) for now.
- Eventually will transition to oral antibiotic when final culture data available.
-Continue wound care
# Pneumonia
# Status post acute respiratory failure, extubated November 18
-Sputum culture with Staphylococcus aureus.
-Continue vancomycin for now pending susceptibility data.
# IV drug use
# Hepatitis C, untreated
-Patient agreeable to repeat HIV screen.
# Profound protein�calorie malnutrition
-Condition contributes to poor wound healing.
Care Review
Plan reviewed with: Physician (Dr. Pace)
--- NOTE | 2024-11-19 15:54 | CHAP ---
Lokesh was awake, eating breakfast when I came. Mother, Adriana, was present, and friend, Shaan, arrived during the visit. Emotional and spiritual support provided.
--- NOTE | 2024-11-19 16:53 | PTCARENOTE ---
VAT to bedside; inserted #20 R FA. R fem TL d/c'd by Dr. Pace; Pressure held until bleeding ceased and clean dressing applied. LE wound care completed per orders. Pt. assisted x2 OOB to chair; tolerated position for approx 2H. Pt. assisted
into BR; inc on way to the BR of loose stool. Compete hygiene provided and assisted back to bed. Pt.'s mother back to bedside, updated. Call idris keller in reach.
[2024-11-19] MEDS: FLUSH (NSS) 2 FLUSH IV (20:22)
--- NOTE | 2024-11-19 21:30 | PTCARENOTE ---
Report received from previous shift RN [id number]. Pt in bed, AAO3, flat affect noted, generalized weakness noted. Lung sounds decreased throughout, coarse rhonchi b/l posteriorly, pox 95% on room air, oc moist cough. Telemetry rhythm reveals SR, HR 80's,
+1 hand and pedal edema, +2 LLE, + radial pulses, weak R pp, doppler L pp. +BS, abdomen firm, tolerated regular diet during day. Voiding yellow urine into urinal at bedside. Skin as documented. R FA int and L lat AC int's flushed and patent, capped.
Safe environment maintained, call steinberg within reach. Will monitor closely.
[2024-11-19 23:39] LABS: Transferrin 287 mg/dL (200-360)
[2024-11-20] VITALS (17 sets, daily range): BP systolic 147–190; BP diastolic 97–132; PULSE 77–106; BMI 17.6
--- NOTE | 2024-11-20 01:30 | PTCARENOTE ---
Pt sleeping when undisturbed. Pt's BP elevated throughout admission; discussed krishna Weir CLINICAL DATA COORDINATOR, new PRN orders received. No change in assessment. Will continue to monitor closely.
[2024-11-20] MEDS: ZOSYN 100 IV ×4 (01:34→20:28)
[2024-11-20] MEDS: FLUSH (NSS) 2 FLUSH IV ×2 (01:35→01:54)
[2024-11-20] MEDS: APRESOLINE 10 MG IV ×4 (01:54→20:28)
--- NOTE | 2024-11-20 04:30 | PTCARENOTE ---
No change in pt assessment. Pt sleeping when undisturbed. LLE wound dressing changed. Will monitor closely.
[2024-11-20 05:41] LABS: % Basophils 0.6 % (0-2); % Eosinophils 2.9 % (0-6); % Immature Granulocytes 0.3 % (0-0.5); % Lymphocytes 15.2 % (20.5-51.1); Absolute Basophils 0.1 10^3/uL (0-0.2); Absolute Eosinophils 0.3 10^3/uL (0-0.7); Absolute Lymphocytes 1.4 10^3/uL (1.2-3.4); Absolute Monocytes 0.4 10^3/uL (0.1-0.6); Absolute Neutrophils 7.3 10^3/uL (1.4-6.5); Hematocrit 26.1 % (39.0-52.0); Hemoglobin 7.8 g/dL (13.0-18.0); Mean Corp Hgb Conc. 29.9 g/dL (33.0-37.0); Mean Corpuscular Hgb 18.8 pg (27.0-31.0); Mean Platelet Volume 8.2 fL (7.4-10.4); Nucleated Red Blood Cells % 0 % (-); Platelet Count 464 10^3/uL (130-400); Red Blood Cell Count 4.14 10^6/uL (4.70-6.10); Red Cell Dist. Width 24.6 % (11.5-14.5); White Blood Cell Count 9.4 10^3/uL (4.8-10.8)
[2024-11-20] MEDS: CATAPRES 0.2 MG PO ×3 (05:58→17:46)
[2024-11-20] MEDS: ROXICODONE 20 MG PO ×3 (05:58→17:46)
[2024-11-20] MEDS: ZANAFLEX 2 MG PO ×3 (05:59→17:46)
[2024-11-20 06:02] LABS: ALT (SGPT) 13 U/L (0-50); AST (SGOT) 25 U/L (17-59); Albumin 2.7 g/dl (3.5-5.0); Alkaline Phosphatase 358 U/L (38-126); Blood Urea Nitrogen 25 mg/dl (9-20); Calcium 8.3 mg/dl (8.4-10.2); Carbon Dioxide 20 mmol/L (22-30); Chloride 116 mmol/L (98-107); Estimated Creatinine Clearance 66 ml/min; Glucose 94 mg/dl (70-99); Phosphorus 3.5 mg/dl (2.5-4.5); Potassium 4.1 mmol/L (3.5-5.1); Sodium 144 mmol/L (135-145); Total Bilirubin 0.8 mg/dl (0.2-1.3); Total Protein 6.9 g/dl (6.3-8.2); Triglycerides 181 mg/dl (10-149); eGFR > 60.00
--- NOTE | 2024-11-20 06:26 | W.PN.HOSP.TC ---
Today's Communication/Plan
-
IV Abx
Wound care
Wean off Oxycodone
On Methadone
Social service to follow
Assessment / Plan
Assessment / Plan
Physical Exam
General: Appears Chronically Ill
HEENT: Normocephalic
Respiratory: Good air, no wheezes
Cardiac: S1/S2 and Tachycardia
GI: Sofr, non tender, not distended.
Musculoskeletal: No Cyanosis
, + Flores, no hematuria
Skin: Other (Wounds on bilateral lower extremities with clean dressing
Neuro: Alert. Awake.
Psych: Calm
Assessment/Plan
Septic Shock --due to pneumonia and lower extremity necrotizing wounds particularly the left lower extremity, use of Xylazine?
Necrotizing soft tissue infection involving left lower extremity s/p excisional debridement (performed 11/17/2024)
History of IVDA/heroin use, Use using lower extremities
Lactic Acidosis
Left Mid to Lower Lung Atelectasis vs. Pneumonia -- could also have a pneumonitis from illicit drug use insufflation
Suspected Infection related to wounds from IVDU
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
History of MRSA
Acute Hypoxic Respiratory Failure
Acute Toxic Metabolic Encephalopathy Secondary to the Above
-Blood cultures x2 ordered NGTD
s/p Normal Saline Fluid bolus in the ER
-Received vancomycin and Zosyn in the ER
-Right femoral CVC removed without incident 11/19. IV team was able to place a 2nd PIV prior to removal.
-Continue broad spectrum antibiotics with Vancomycin and Zosyn
-Patient has been extubated on 11/18/24
-Received vasopressors in the ER --> has been weaned off
-LLE with significant necrosis noted on the left side extending to the muscle
-General surgery consulted and performed bedside debridement
Consulted ID
# Ileus
c/w NG, IVF, f/w surgery
# severe protein calorie malnutrition
#Anion Gap Metabolic Acidosis Suspected from Lactic Acidosis and Starvation
resolving.
#Acute Microcytic Anemia -- acute blood loss anemia from his bleeding lower extremity wounds
-Hgb 5.3 initially
-2 units PRBCs given
on IV Iron, day # 2
-Checked iron studies, iron deficiency present
#HEYDI with mild hyperkalemia (potassium now normalized)
likely ATN from drugs
Hypernatremia likely from reduced oral intake, resolved.
-Now, continue D5W IV fluids+Thiamine given hypernatremia
-Monitor for Refeeding Syndrome; monitor magnesium and phosphorus levels
#Thrombocytosis � likely reactive due to sepsis and drug withdrawal
#History of osteomyelitis of the right elbow joint (chronic)/ Left lower extremity chronic wounds bilaterally (LT>RT)
-LLE with significant necrosis noted on the left side extending to the muscle
-General surgery consulted and performed bedside debridement on 11/18/24
-Wound care consult. Dakin's wet to dry Kerlix wrap twice daily. Once patient's infection is cleared, can switch to Adaptic, gauze and Kerlix wrap.
#Anxiety/Depression
Consult psych once out of ICU
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
Polysubstance use (including heroin)
Abnormal UDS positive for fentanyl, opiates, cocaine + THC
History of UDS positive for fentanyl, cocaine, and marijuana
-Continue Clonidine QID,
-Continue oxycodone 20mg PO q6hr for withdrawal
Off Precedex
- On methadone
-c/w Zanaflex QID
Smoking
Tobacco use disorder
-Nicotine patch
Vaping
DVT Prophylaxis: Heparin Subq
Code Status: Full Code
Total time spent to see the patient, examined the patient, reviewed the data and lab results, discuss treatment plan with patient and nursing staff around 55 minutes
Anticipated Discharge: > 48 hours
Subjective/Interval History
-
Date of Service: November 20, 2024
No fevers
no hypotension over night
Objective Data
-
Labs:
Laboratory Results
11/20/24
05:22
WBC 9.4
Hgb 7.8 L
Hct 26.1 L
Plt Count 464 H
Sodium 144
Potassium 4.1
Chloride 116 H
Carbon Dioxide 20 L
BUN 25 H
Creatinine 1.3
Glucose 94
Calcium 8.3 L
Total Bilirubin 0.8
AST 25
ALT 13
Alkaline Phosphatase 358 H
Vital Signs:
Vital Signs
Temp Pulse Resp BP Pulse Ox
98.5 F 75 14 160/120 98
11/20/24 04:00 11/20/24 05:58 11/20/24 01:36 11/20/24 05:58 11/20/24 01:36
I&O
11/18/24 11/19/24 11/20/24
06:59 06:59 06:59
Intake Total 3381.4 / 3523.0 3501.2 / 3561.2 1300 / 1300
Output Total 630 / 705 1885 / 1885 1900 / 1900
Balance 2751.4 / 2818.0 1616.2 / 1676.2 -600 / -600
[2024-11-20 07:08] LABS: Folate 5.8 ng/ml (2.76-20); Vitamin B12 578 pg/ml (239-931)
[2024-11-20] MEDS: DOLOPHINE 40 MG PO (08:41)
[2024-11-20] MEDS: NICODERM TRANSDERMAL 21 MG TRANSDERM (08:41)
[2024-11-20] MEDS: VITAMIN B1 100 MG PO (08:41)
[2024-11-20] MEDS: HEPARIN 5000 UNITS SC ×2 (08:42→20:27)
[2024-11-20] MEDS: DAKIN'S SOLUTION 0.125% 1/4 STRENGTH 473 ML TOPICAL (08:53)
--- NOTE | 2024-11-20 12:17 | W.PN.ID1 ---
Date of Service
Date of Service: November 20, 2024
Today's Communication
Continue Zosyn
Assessment / Plan
# Left lower extremity extensive necrotizing wound from IV drug use
-November 17 status post OR excisional debridement to healthy tissue. Wound appearance improved since then.
-OR culture with polymicrobial organisms including group A strep, Proteus, Morganella
-Continue with Zosyn (d4) for now.
-Continue wound care
# Pneumonia
# Status post acute respiratory failure, extubated November 18
-Sputum culture with Staphylococcus aureus (MSSA)
-Discontinue vancomycin.
- Continue Zosyn as above (d4)
# IV drug use
# Hepatitis C, untreated
-Patient agreeable to repeat HIV screen - pending
# Profound protein�calorie malnutrition
-Condition contributes to poor wound healing.
Chief Complaint
-: Cellulitis
Subjective / Review of Systems
No acute complaints
Vital Signs / Physical Exam
Vital Signs
Vital Signs
Temp Pulse Resp BP Pulse Ox
98.4 F 76 14 164/103 97
11/20/24 09:05 11/20/24 09:00 11/20/24 09:00 11/20/24 08:00 11/20/24 09:49
Physical Exam
Constitutional: Chronically Ill and Cachetic
Oropharyngeal: Poor Dention
Cardiovascular: Regular Rate and S1/S2
Pulmonary: Clear (anteriorly)
Gastrointestinal: Soft, Non Tender and Non Distended
Extremities: Negative Edema
Wound: Other (BLE dressings dry)
Objective Data
Lab Data
Lab Results
11/20/24 05:22
11/20/24 05:22
PT 19.8 Sec (11.4-14.6) H 11/17/24 09:08
INR 1.66 11/17/24 09:08
APTT 44.4 Sec (23.4-35.0) H 11/17/24 09:08
Estimated Creat Clear 66 ml/min 11/20/24 05:22
Lactic Acid 0.8 mmol/L (0.7-2.0) 11/17/24 18:08
Total Bilirubin 0.8 mg/dl (0.2-1.3) 11/20/24 05:22
GGT 132 U/L (15-73) H 11/18/24 04:41
AST 25 U/L (17-59) 11/20/24 05:22
ALT 13 U/L (0-50) 11/20/24 05:22
Alkaline Phosphatase 358 U/L (38-126) H 11/20/24 05:22
Most recent labs reviewed.
Micro Results:
11/17/24 09:08 Blood Culture - Preliminary
Blood/Venous No Growth in 72 hours- Final report to follow
11/17/24 08:26 Blood Culture - Preliminary
Blood/Venous No Growth in 72 hours- Final report to follow
11/17/24 16:24 Wound Culture - Preliminary
Leg - Left Proteus vulgaris
Morganella morganii
Group C Streptococcus
Streptococcus pyogenes
Gram Stain - Preliminary
11/17/24 13:21 Respiratory Culture - Final
Endotracheal S aureus-Methicillin Sensitive
Gram Stain - Final
11/19/24 12:43 Legionella Urinary Antigen - Final
Urine Negative for Legionella pneumophila Serogroup 1 antigen.
A negative result does not rule out the possiblity of
Legionella infection due to other serogroups or species of
Legionella. Clinical correlation is recommended.
Streptococcus pneumoniae Antigen (M - Final
Negative for Streptococcus pneumoniae antigen.
A negative result does not exclude infection with
Streptococcus pneumoniae. Clinical correlation is
recommended.
11/17/24 13:16 MRSA Screen - Final
Nose No Methicillin Resistant Staphylococcus aureus isolated.
11/17/24 16:24 Anaerobic Culture - Preliminary
Leg - Left Culture pending. Anaerobic cultures are examined after 3
days incubation. Additional information to follow.
11/18/24 CXR: Patchy parenchymal opacities within both lungs, likely pneumonia. No evidence for associated pleural effusion.
11/17/24 CT a/p: Confluent parenchymal opacity within the left lower lobe of the lung, most likely pneumonia. Differential considerations of atelectasis or a combination of pneumonia and atelectasis. Multiple small nodular and groundglass opacities
throughout the visualized right lower lung, which is likely a diffuse small airway pneumonitis. Linear densities within the right lower lung compatible with discoid atelectasis. Distention of the stomach. Distention of small bowel loops, most likely
focal ileus. No evidence for free intraperitoneal air. Small bowel obstruction not excluded. Hepatomegaly and splenomegaly, with slight increase in size of liver and spleen compared to prior CT in 2021.
--- NOTE | 2024-11-20 12:42 | PTCARENOTE ---
Rec'd care of patient at 0700. Patient alert and oriented. Flat. NSR on tele. Lung sounds cta on RA. Appetite good. No BM. Voiding via urinal. B/l LE dressings intact. Peripheral INTs flushed and capped. BP elevated. Scheduled dose of Catapres,
Roxicodone and Zanaflex administered as ordered. Patient encouraged to get oob to chair. Refused. PT/OT ordered.
--- NOTE | 2024-11-20 14:20 | CM ---
CM following re: discharge planning.
Reviewed pt's chart, met with pt.
Pt expressed his desire to go to inpatient D&A rtehab to9 start working on his sobriety/to stay clean. Pt expressed his agreement to meet with [facility].
A referral to [facility] made, [facility] [place] met with pt and per [place], pt wants to go to [facility] inpatient D&A rehab.
D/C plan: [facility] inpatient residential D&A rehab. [facility] following.
CM will follow to assist pt with discharge to [facility] inpatient residential D&A rehab.
[2024-11-20] MEDS: FERRLECIT 110 MG IV (14:24)
[2024-11-21] VITALS (11 sets, daily range): BP systolic 118–184; BP diastolic 78–124
[2024-11-21] MEDS: CATAPRES 0.2 MG PO ×5 (00:18→23:48)
[2024-11-21] MEDS: ZANAFLEX 2 MG PO ×5 (00:19→23:48)
[2024-11-21] MEDS: ROXICODONE 20 MG PO ×2 (00:19→05:51)
[2024-11-21] MEDS: ZOSYN 100 IV ×4 (02:40→21:10)
--- NOTE | 2024-11-21 06:37 | W.PN.HOSP.TC ---
Today's Communication/Plan
-
c/w wound care
Add Amlodipine
TSH in AM
eventual echo
Assessment / Plan
Assessment / Plan
Physical Exam
General: Appears Chronically Ill
HEENT: Normocephalic
Respiratory: Good air, no wheezes
Cardiac: S1/S2 and Tachycardia
GI: Sofr, non tender, not distended.
Musculoskeletal: No Cyanosis
, + Flores, no hematuria
Skin: Other (Wounds on bilateral lower extremities with clean dressing )
Neuro: Alert. Awake.
Psych: Calm
Assessment/Plan
Septic Shock --due to pneumonia and lower extremity necrotizing wounds particularly the left lower extremity, use of Xylazine?
Necrotizing soft tissue infection involving left lower extremity s/p excisional debridement (performed 11/17/2024)
History of IVDA/heroin use, Use using lower extremities
Lactic Acidosis
Left Mid to Lower Lung Atelectasis vs. Pneumonia -- could also have a pneumonitis from illicit drug use insufflation
Suspected Infection related to wounds from IVDU
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
History of MRSA
Acute Hypoxic Respiratory Failure
Acute Toxic Metabolic Encephalopathy Secondary to the Above
-Blood cultures x2 ordered NGTD
-s/p iVF
Wound culture with polymicrobial organisms including group A strep, Proteus, Morganella
-Right femoral CVC removed without incident 11/19. IV team was able to place a 2nd PIV prior to removal.
-s/p Vancomycin and Zosyn, now with Zosyn
-Patient has been extubated on 11/18/24
-Received vasopressors in the ER --> has been weaned off
-LLE with significant necrosis noted on the left side extending to the muscle
-General surgery consulted and performed bedside debridement
Consulted ID, appreciate help
# High blood pressure due to withdrawal
Possible underlying secondary HTH due to cocaine use
c/w Clonidine, PRN hydralazine
Check TSH
add oral Amlodipine
# Ileus
c/w NG, IVF, resolved
tolerating diet now
# severe protein calorie malnutrition
#Anion Gap Metabolic Acidosis Suspected from Lactic Acidosis and Starvation
resolving.
#Acute Microcytic Anemia -- acute blood loss anemia from his bleeding lower extremity wounds
-Hgb 5.3 initially
-2 units PRBCs given
on IV Iron, day # 3
-Checked iron studies, iron deficiency present
#HEYDI with mild hyperkalemia (potassium now normalized)
likely ATN from drugs
Hypernatremia likely from reduced oral intake, resolved.
-Now, continue D5W IV fluids+Thiamine given hypernatremia
-Monitor for Refeeding Syndrome; monitor magnesium and phosphorus levels
#Thrombocytosis � likely reactive due to sepsis and drug withdrawal
#History of osteomyelitis of the right elbow joint (chronic)/ Left lower extremity chronic wounds bilaterally (LT>RT)
-LLE with significant necrosis noted on the left side extending to the muscle
-General surgery consulted and performed bedside debridement on 11/18/24
-Wound care consulted. Dakin's wet to dry Kerlix wrap twice daily. Once patient's infection is cleared, can switch to Adaptic, gauze and Kerlix wrap.
#Anxiety/Depression
Mood is cooperative
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
Polysubstance use (including heroin)
Abnormal UDS positive for fentanyl, opiates, cocaine + THC
History of UDS positive for fentanyl, cocaine, and marijuana
-Continue Clonidine QID,
-Continue oxycodone 20mg PO q6hr for withdrawal
Off Precedex
- On methadone
-c/w Zanaflex QID
#Smoking
Tobacco use disorder
-Nicotine patch
Vaping
DVT Prophylaxis: Heparin Subq
Code Status: Full Code
Total time spent to see the patient, examined the patient, reviewed the data and lab results, discuss treatment plan with patient and nursing staff around 55 minutes
Anticipated Discharge: > 48 hours
Subjective/Interval History
-
Date of Service: November 21, 2024
No fever string cutter night
High blood pressure
Objective Data
-
Labs:
Laboratory Results
11/21/24
06:00
WBC Pending
Hgb Pending
Hct Pending
Plt Count Pending
Sodium Pending
Potassium Pending
Chloride Pending
Carbon Dioxide Pending
BUN Pending
Creatinine Pending
Glucose Pending
Calcium Pending
Total Bilirubin Pending
AST Pending
ALT Pending
Alkaline Phosphatase Pending
Vital Signs:
Vital Signs
Temp Pulse Resp BP Pulse Ox
99.3 F 85 10 184/124 95
11/21/24 00:18 11/21/24 05:51 11/21/24 03:00 11/21/24 05:51 11/20/24 20:00
I&O
11/19/24 11/20/24 11/21/24
06:59 06:59 06:59
Intake Total 3501.2 / 3561.2 1300 / 1300 1900 / 1900
Output Total 1885 / 1885 1900 / 1900 2365 / 2365
Balance 1616.2 / 1676.2 -600 / -600 -465 / -465
--- NOTE | 2024-11-21 08:00 | PTCARENOTE ---
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 Patient is somnolent, arousable. AAOx3. He is on room air. spot check for oxygen saturation, 95%. he is sinus rhythm on monitor. Has edema in bilateral hands and lower extremities. Patient is ordered regular
diet, has urinal at bedside. Will document wound care in focused shift assessment. Will review orders, patient able to make needs known.
[2024-11-21] MEDS: DOLOPHINE 50 MG PO (08:17)
[2024-11-21] MEDS: NORVASC 10 MG PO (08:17)
[2024-11-21] MEDS: HEPARIN 5000 UNITS SC ×2 (08:18→21:09)
[2024-11-21] MEDS: NICODERM TRANSDERMAL 21 MG TRANSDERM (08:18)
[2024-11-21] MEDS: VITAMIN B1 100 MG PO (08:18)
[2024-11-21] MEDS: DAKIN'S SOLUTION 0.125% 1/4 STRENGTH 473 ML TOPICAL (08:19)
[2024-11-21 09:02] LABS: ALT (SGPT) 14 U/L (0-50); AST (SGOT) 33 U/L (17-59); Albumin 2.9 g/dl (3.5-5.0); Alkaline Phosphatase 357 U/L (38-126); Blood Urea Nitrogen 22 mg/dl (9-20); Calcium 8.6 mg/dl (8.4-10.2); Carbon Dioxide 23 mmol/L (22-30); Chloride 112 mmol/L (98-107); Estimated Creatinine Clearance 66 ml/min; Glucose 82 mg/dl (70-99); Potassium 5.2 mmol/L (3.5-5.1); Sodium 143 mmol/L (135-145); Total Bilirubin 0.8 mg/dl (0.2-1.3); Total Protein 7.3 g/dl (6.3-8.2); eGFR > 60.00
[2024-11-21 09:24] LABS: % Eosinophils 3.6 % (0-6); % Immature Granulocytes 0.2 % (0-0.5); % Lymphocytes 22.5 % (20.5-51.1); % Monocytes 4.1 % (1.7-9.3); % Neutrophils 68.6 % (42.2-75.2); Absolute Basophils 0.1 10^3/uL (0-0.2); Absolute Eosinophils 0.2 10^3/uL (0-0.7); Absolute Lymphocytes 1.4 10^3/uL (1.2-3.4); Absolute Monocytes 0.3 10^3/uL (0.1-0.6); Absolute Neutrophils 4.2 10^3/uL (1.4-6.5); Hematocrit 28.7 % (39.0-52.0); Hemoglobin 8.5 g/dL (13.0-18.0); Mean Corp Hgb Conc. 29.6 g/dL (33.0-37.0); Mean Corpuscular Hgb 18.6 pg (27.0-31.0); Mean Corpuscular Volume 62.7 fL (80.0-94.0); Mean Platelet Volume 8.5 fL (7.4-10.4); Nucleated Red Blood Cells % 0 % (-); Platelet Count 447 10^3/uL (130-400); Red Blood Cell Count 4.58 10^6/uL (4.70-6.10); Red Cell Dist. Width 25.9 % (11.5-14.5); White Blood Cell Count 6.1 10^3/uL (4.8-10.8)
--- NOTE | 2024-11-21 09:57 | W.PN.ID1 ---
Date of Service
Date of Service: November 21, 2024
Today's Communication
Continue Zosyn.
Assessment / Plan
# Left lower extremity extensive necrotizing wound from IV drug use
-November 17 status post OR excisional debridement to healthy tissue. Wound appearance improved since then.
-OR culture with polymicrobial organisms including group A strep, Proteus, Morganella
-Continue with Zosyn (d5)
-Continue wound care
# Pneumonia
# Status post acute respiratory failure, extubated November 18
-Sputum culture with Staphylococcus aureus (MSSA)
- Continue Zosyn as above (d5)
# IV drug use
# Hepatitis C, untreated
-Patient agreeable to repeat HIV screen - pending
# Profound protein�calorie malnutrition
-Condition contributes to poor wound healing.
Chief Complaint
-: Cellulitis
Subjective / Review of Systems
Feels weak.
Vital Signs / Physical Exam
Vital Signs
Vital Signs
Temp Pulse Resp BP Pulse Ox
98.9 F 71 12 172/112 95
11/21/24 08:00 11/21/24 08:17 11/21/24 07:08 11/21/24 08:17 11/20/24 20:00
Physical Exam
Constitutional: Chronically Ill and Cachetic
Oropharyngeal: Poor Dention
Cardiovascular: Regular Rate and S1/S2
Pulmonary: Clear (anteriorly)
Gastrointestinal: Soft, Non Tender and Non Distended
Extremities: Negative Edema
Wound: Other (BLE dressings dry)
Objective Data
Lab Data
Lab Results
11/21/24 08:20
11/21/24 08:20
PT 19.8 Sec (11.4-14.6) H 11/17/24 09:08
INR 1.66 11/17/24 09:08
APTT 44.4 Sec (23.4-35.0) H 11/17/24 09:08
Estimated Creat Clear 66 ml/min 11/21/24 08:20
Lactic Acid 0.8 mmol/L (0.7-2.0) 11/17/24 18:08
Total Bilirubin 0.8 mg/dl (0.2-1.3) 11/21/24 08:20
GGT 132 U/L (15-73) H 11/18/24 04:41
AST 33 U/L (17-59) 11/21/24 08:20
ALT 14 U/L (0-50) 11/21/24 08:20
Alkaline Phosphatase 357 U/L (38-126) H 11/21/24 08:20
Most recent labs reviewed.
Micro Results:
11/17/24 16:24 Anaerobic Culture - Preliminary
Leg - Left Culture pending. Anaerobic cultures are examined after 3
days incubation. Additional information to follow.
11/17/24 09:08 Blood Culture - Preliminary
Blood/Venous No Growth in 4 days- Final report to follow
11/17/24 08:26 Blood Culture - Preliminary
Blood/Venous No Growth in 4 days- Final report to follow
11/17/24 16:24 Wound Culture - Preliminary
Leg - Left Proteus vulgaris
Morganella morganii
Group C Streptococcus
Streptococcus pyogenes
Gram Stain - Preliminary
11/17/24 13:21 Respiratory Culture - Final
Endotracheal S aureus-Methicillin Sensitive
Gram Stain - Final
11/19/24 12:43 Legionella Urinary Antigen - Final
Urine Negative for Legionella pneumophila Serogroup 1 antigen.
A negative result does not rule out the possiblity of
Legionella infection due to other serogroups or species of
Legionella. Clinical correlation is recommended.
Streptococcus pneumoniae Antigen (M - Final
Negative for Streptococcus pneumoniae antigen.
A negative result does not exclude infection with
Streptococcus pneumoniae. Clinical correlation is
recommended.
03/28/25 13:16 MRSA Screen - Final
Nose No Methicillin Resistant Staphylococcus aureus isolated.
11/18/24 CXR: Patchy parenchymal opacities within both lungs, likely pneumonia. No evidence for associated pleural effusion.
11/17/24 CT a/p: Confluent parenchymal opacity within the left lower lobe of the lung, most likely pneumonia. Differential considerations of atelectasis or a combination of pneumonia and atelectasis. Multiple small nodular and groundglass opacities
throughout the visualized right lower lung, which is likely a diffuse small airway pneumonitis. Linear densities within the right lower lung compatible with discoid atelectasis. Distention of the stomach. Distention of small bowel loops, most likely
focal ileus. No evidence for free intraperitoneal air. Small bowel obstruction not excluded. Hepatomegaly and splenomegaly, with slight increase in size of liver and spleen compared to prior CT in 2021.
[2024-11-21 13:18] LABS: HIV Combo Negative (Negative)
[2024-11-21 13:34] LABS: Anisocytosis 1+; Hypochromasia 1+; Microcytosis 1+; Normal RBC Morphology No; Spherocytes 1+; Target Cells 1+
--- NOTE | 2024-11-21 13:56 | CM ---
CM following re: discharge planning.
Reviewed pt's chart, met with pt and pt's mother at bedside.
Pt expressed his desire to go to inpatient D&A rehab to start working on his sobriety/to stay clean.
[facility] following, met with pt today and because pts has wounds pt will need medical D&A rehab: [facility] inpatient D&A rehab or [facility] inpatient residential D&A rehab.
D/C plan: Inpatient residential D&A rehab. [facility] following.
CM will follow to assist pt with discharge to inpatient residential D&A rehab.
[2024-11-21] MEDS: FERRLECIT 110 MG IV (14:02)
[2024-11-21] MEDS: ROXICODONE 10 MG PO ×2 (17:12→23:48)
--- NOTE | 2024-11-21 17:39 | PTCARENOTE ---
patient transferred to [id number]
--- NOTE | 2024-11-21 18:35 | PTCARENOTE ---
Patient transferred from ICU. VSS. Mom at bedside. Patient NSR on tele monitor. Call steinberg within reach.
[2024-11-22] MEDS: APRESOLINE 10 MG IV (01:17)
[2024-11-22] MEDS: ZOSYN 100 IV ×4 (02:56→21:06)
[2024-11-22 03:27] VITALS: BP 150/97
[2024-11-22] MEDS: ZANAFLEX 2 MG PO ×2 (05:57→15:36)
[2024-11-22] MEDS: ROXICODONE 10 MG PO (05:57)
[2024-11-22] MEDS: CATAPRES 0.2 MG PO ×3 (05:57→17:14)
[2024-11-22 07:10] VITALS: BP 139/101
[2024-11-22 07:48] LABS: % Basophils 0.9 % (0-2); % Eosinophils 3.7 % (0-6); % Immature Granulocytes 0.5 % (0-0.5); % Lymphocytes 21.8 % (20.5-51.1); % Monocytes 4.3 % (1.7-9.3); % Neutrophils 68.8 % (42.2-75.2); Absolute Basophils 0.1 10^3/uL (0-0.2); Absolute Eosinophils 0.2 10^3/uL (0-0.7); Absolute Lymphocytes 1.4 10^3/uL (1.2-3.4); Absolute Monocytes 0.3 10^3/uL (0.1-0.6); Absolute Neutrophils 4.5 10^3/uL (1.4-6.5); Hematocrit 28.2 % (39.0-52.0); Hemoglobin 8.2 g/dL (13.0-18.0); Mean Corp Hgb Conc. 29.1 g/dL (33.0-37.0); Mean Corpuscular Hgb 18.7 pg (27.0-31.0); Mean Corpuscular Volume 64.4 fL (80.0-94.0); Mean Platelet Volume 8.9 fL (7.4-10.4); Nucleated Red Blood Cells % 0 % (-); Platelet Count 439 10^3/uL (130-400); Red Blood Cell Count 4.38 10^6/uL (4.70-6.10); Red Cell Dist. Width 25.9 % (11.5-14.5); White Blood Cell Count 6.5 10^3/uL (4.8-10.8)
[2024-11-22 08:26] LABS: ALT (SGPT) 15 U/L (0-50); AST (SGOT) 29 U/L (17-59); Albumin 3.2 g/dl (3.5-5.0); Alkaline Phosphatase 352 U/L (38-126); Blood Urea Nitrogen 19 mg/dl (9-20); Calcium 8.6 mg/dl (8.4-10.2); Carbon Dioxide 23 mmol/L (22-30); Chloride 109 mmol/L (98-107); Estimated Creatinine Clearance 71 ml/min; Glucose 81 mg/dl (70-99); Potassium 4.7 mmol/L (3.5-5.1); Sodium 142 mmol/L (135-145); Total Bilirubin 0.6 mg/dl (0.2-1.3); Total Protein 7.5 g/dl (6.3-8.2); eGFR > 60.00
[2024-11-22] MEDS: DOLOPHINE 50 MG PO (08:37)
[2024-11-22] MEDS: NICODERM TRANSDERMAL 21 MG TRANSDERM (08:37)
[2024-11-22] MEDS: VITAMIN B1 100 MG PO (08:39)
[2024-11-22] MEDS: NORVASC 10 MG PO (08:39)
[2024-11-22] MEDS: DAKIN'S SOLUTION 0.125% 1/4 STRENGTH 473 ML TOPICAL (08:40)
[2024-11-22] MEDS: HEPARIN 5000 UNITS SC ×2 (08:40→21:06)
[2024-11-22 08:41] LABS: TSH 6.28 uIU/ml (0.47-4.68)
--- NOTE | 2024-11-22 11:05 | CM ---
Patient to be followed by [facility] and they plan to see patient to assess further tomorrow. Patient will need to provide methadone dosing information closer to discharge. CM will continue to follow for discharge planning needs.
Plan; drug and alcohol treatment.
[2024-11-22 11:55] VITALS: BP 136/97
[2024-11-22] MEDS: ROXICODONE PO (12:46)
--- NOTE | 2024-11-22 13:27 | W.PN.HOSP.TC ---
Today's Communication/Plan
-
c/w wound care
IV Zosyn
lower dose of oxy & Tizanidine
Lower dose of clonidine
Assessment / Plan
Assessment / Plan
Physical Exam
General: Appears Chronically Ill
HEENT: Normocephalic
Respiratory: Good air, no wheezes
Cardiac: S1/S2 and Tachycardia
GI: Sofr, non tender, not distended.
Musculoskeletal: No Cyanosis
, + Flores, no hematuria
Skin: Other (Wounds on bilateral lower extremities with clean dressing )
Neuro: Alert. Awake.
Psych: Calm
Assessment/Plan
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
Polysubstance use (including heroin)
Abnormal UDS positive for fentanyl, opiates, cocaine + THC
History of UDS positive for fentanyl, cocaine, and marijuana
-Continue Clonidine QID but lower the dose. ,
-Continue oxycodone, will lower the dose due to oversedation.
Off Precedex drip.
- On methadone
-c/w Zanaflex QID, will lower the dose due to over sedation.
#Septic Shock --due to pneumonia and lower extremity necrotizing wounds particularly the left lower extremity, use of Xylazine?
Necrotizing soft tissue infection involving left lower extremity s/p excisional debridement (performed 11/17/2024)
History of IVDA/heroin use, Use using lower extremities
Lactic Acidosis
Left Mid to Lower Lung Atelectasis vs. Pneumonia -- could also have a pneumonitis from illicit drug use insufflation
Suspected Infection related to wounds from IVDU
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
History of MRSA
Acute Hypoxic Respiratory Failure
Acute Toxic Metabolic Encephalopathy Secondary to the Above
-Blood cultures x2 ordered NGTD
-s/p IVF
Wound culture with polymicrobial organisms including group A strep, Proteus, Morganella
-Right femoral CVC removed without incident 11/19. IV team was able to place a 2nd PIV prior to removal.
-s/p Vancomycin and Zosyn, now with Zosyn =, day #6
-Patient has been extubated on 11/18/24
-Received vasopressors in the ER --> has been weaned off
-LLE with significant necrosis noted on the left side extending to the muscle
-General surgery consulted and performed bedside debridement
Consulted ID, appreciate help
# High blood pressure due to withdrawal
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
c/w Clonidine, PRN hydralazine, will start to lower dose of clonidine
Slightly elevated TSH, not c/w hypothyroids, related to stress response.
add oral Amlodipine
# Ileus
c/w NG, IVF, resolved
tolerating diet now
# severe protein calorie malnutrition
#Anion Gap Metabolic Acidosis Suspected from Lactic Acidosis and Starvation
resolving.
#Acute Microcytic Anemia -- acute blood loss anemia from his bleeding lower extremity wounds
-Hgb 5.3 initially
-2 units PRBCs given
on IV Iron, day # 3
-Checked iron studies, iron deficiency present
#HEYDI with mild hyperkalemia (potassium now normalized)
likely ATN from drugs
Hypernatremia likely from reduced oral intake, resolved.
-Now, continue D5W IV fluids+Thiamine given hypernatremia
-Monitor for Refeeding Syndrome; monitor magnesium and phosphorus levels
#Thrombocytosis � likely reactive due to sepsis and drug withdrawal
#History of osteomyelitis of the right elbow joint (chronic)/ Left lower extremity chronic wounds bilaterally (LT>RT)
-LLE with significant necrosis noted on the left side extending to the muscle
-General surgery consulted and performed bedside debridement on 11/18/24
-Wound care consulted. Dakin's wet to dry Kerlix wrap twice daily. Once patient's infection is cleared, can switch to Adaptic, gauze and Kerlix wrap.
#Anxiety/Depression
Mood is cooperative
#Smoking
Tobacco use disorder
-Nicotine patch
Vaping
DVT Prophylaxis: Heparin Subq
Code Status: Full Code
Total time spent to see the patient, examined the patient, reviewed the data and lab results, discuss treatment plan with patient and nursing staff around 55 minutes
Anticipated Discharge: > 48 hours
Subjective/Interval History
-
Date of Service: November 22, 2024
Objective Data
-
Labs:
Laboratory Results
11/22/24
05:50
WBC 6.5
Hgb 8.2 L
Hct 28.2 L
Plt Count 439 H
Sodium 142
Potassium 4.7
Chloride 109 H
Carbon Dioxide 23
BUN 19
Creatinine 1.2
Glucose 81
Calcium 8.6
Total Bilirubin 0.6
AST 29
ALT 15
Alkaline Phosphatase 352 H
Vital Signs:
Vital Signs
Temp Pulse Resp BP Pulse Ox
98.5 F 101 16 136/97 98
11/22/24 11:55 11/22/24 12:45 11/22/24 11:55 11/22/24 12:45 11/22/24 11:55
I&O
11/21/24 11/22/24 11/23/24
06:59 06:59 06:59
Intake Total 1900 / 1900 1490 / 1490
Output Total 2365 / 2365 2575 / 2575
Balance -465 / -465 -1085 / -1085
[2024-11-22 14:21] VITALS: BP 129/85
--- NOTE | 2024-11-22 14:49 | W.PN.ID1 ---
Date of Service
Date of Service: November 22, 2024
Today's Communication
Continue Zosyn for now.
Assessment / Plan
# Left lower extremity extensive necrotizing wound from IV drug use
-November 17 status post OR excisional debridement to healthy tissue. Wound appearance improved since then.
-OR culture with polymicrobial organisms including group A strep, Proteus, Morganella
-Continue with Zosyn (d6).
Will transition to po abx soon.
-Continue wound care
# Pneumonia
# Status post acute respiratory failure, extubated November 18
-Sputum culture with Staphylococcus aureus (MSSA)
- Continue Zosyn as above (d6 of 7)
# IV drug use
# Hepatitis C, untreated
-Patient agreeable to repeat HIV screen - pending
# Profound protein�calorie malnutrition
-Condition contributes to poor wound healing.
Chief Complaint
-: Cellulitis
Subjective / Review of Systems
No acute issues.
Vital Signs / Physical Exam
Vital Signs
Vital Signs
Temp Pulse Resp BP Pulse Ox
98.5 F 90 16 129/85 97
11/22/24 14:21 11/22/24 14:21 11/22/24 14:21 11/22/24 14:21 11/22/24 14:21
Physical Exam
Constitutional: Chronically Ill and Cachetic
Oropharyngeal: Poor Dention
Cardiovascular: Regular Rate and S1/S2
Pulmonary: Clear (anteriorly)
Gastrointestinal: Soft, Non Tender and Non Distended
Extremities: Negative Edema
Wound: Other (BLE dressings dry)
Objective Data
Lab Data
Lab Results
11/22/24 05:50
11/22/24 05:50
PT 19.8 Sec (11.4-14.6) H 11/17/24 09:08
INR 1.66 11/17/24 09:08
APTT 44.4 Sec (23.4-35.0) H 11/17/24 09:08
Estimated Creat Clear 71 ml/min 11/22/24 05:50
Lactic Acid 0.8 mmol/L (0.7-2.0) 11/17/24 18:08
Total Bilirubin 0.6 mg/dl (0.2-1.3) 11/22/24 05:50
GGT 132 U/L (15-73) H 11/18/24 04:41
AST 29 U/L (17-59) 11/22/24 05:50
ALT 15 U/L (0-50) 11/22/24 05:50
Alkaline Phosphatase 352 U/L (38-126) H 11/22/24 05:50
Most recent labs reviewed.
Micro Results:
11/17/24 16:24 Anaerobic Culture - Preliminary
Leg - Left Culture pending. Anaerobic cultures are examined after 3
days incubation. Additional information to follow.
11/17/24 09:08 Blood Culture - Final
Blood/Venous No Growth - Final Report
11/17/24 08:26 Blood Culture - Final
Blood/Venous No Growth - Final Report
11/17/24 16:24 Wound Culture - Preliminary
Leg - Left Proteus vulgaris
Morganella morganii
Group C Streptococcus
Streptococcus pyogenes
Gram Stain - Preliminary
11/17/24 13:21 Respiratory Culture - Final
Endotracheal S aureus-Methicillin Sensitive
Gram Stain - Final
11/19/24 12:43 Legionella Urinary Antigen - Final
Urine Negative for Legionella pneumophila Serogroup 1 antigen.
A negative result does not rule out the possiblity of
Legionella infection due to other serogroups or species of
Legionella. Clinical correlation is recommended.
Streptococcus pneumoniae Antigen (M - Final
Negative for Streptococcus pneumoniae antigen.
A negative result does not exclude infection with
Streptococcus pneumoniae. Clinical correlation is
recommended.
11/17/24 13:16 MRSA Screen - Final
Nose No Methicillin Resistant Staphylococcus aureus isolated.
11/18/24 CXR: Patchy parenchymal opacities within both lungs, likely pneumonia. No evidence for associated pleural effusion.
11/17/24 CT a/p: Confluent parenchymal opacity within the left lower lobe of the lung, most likely pneumonia. Differential considerations of atelectasis or a combination of pneumonia and atelectasis. Multiple small nodular and groundglass opacities
throughout the visualized right lower lung, which is likely a diffuse small airway pneumonitis. Linear densities within the right lower lung compatible with discoid atelectasis. Distention of the stomach. Distention of small bowel loops, most likely
focal ileus. No evidence for free intraperitoneal air. Small bowel obstruction not excluded. Hepatomegaly and splenomegaly, with slight increase in size of liver and spleen compared to prior CT in 2021.
[2024-11-22] MEDS: ROXICODONE 5 MG PO (15:36)
--- NOTE | 2024-11-22 15:46 | WOUNDNOTE ---
RIGHT LATERAL LOWER LEG
--- NOTE | 2024-11-22 15:47 | WOUNDNOTE ---
RIGHT LATERAL LOWER LEG
--- NOTE | 2024-11-22 15:48 | WOUNDNOTE ---
LEFT LATERAL LOWER LEG
--- NOTE | 2024-11-22 15:55 | WOUNDNOTE ---
WO RN NOTE: Visited patient today to follow up on LE wounds. Right and left leg wounds appear negative cleaner, with less drainage and less necrotic tissue. No odor noted. The left lower leg is approximately 90% granulation tissue. Will recommend changing
treatment to cleaning with Vashe moistened gauze and applying Xeroform daily for both leg wounds. Heels and sacrum are intact. A 5 layer sacral foam was applied to bony prominence of sacrum. This underwriter encouraged patient to change positions
frequently in bed. He is on a [employer] Care [employer] bed and can turn self. He reports fair appetite. TT pictures to Dr. Joyce and confirmed orders. Will continue to follow during in-patient stay.
[2024-11-22] MEDS: FERRLECIT 110 MG IV (17:13)
[2024-11-22 19:41] VITALS: BP 134/87
[2024-11-22] MEDS: ZANAFLEX PO (23:07)
[2024-11-22 23:08] VITALS: BP 135/85
[2024-11-23] VITALS (7 sets, daily range): BP systolic 111–137; BP diastolic 73–103; PULSE 91
[2024-11-23] MEDS: CATAPRES 0.2 MG PO ×4 (00:27→17:28)
[2024-11-23] MEDS: ROXICODONE 5 MG PO ×3 (00:28→15:45)
[2024-11-23] MEDS: ZOSYN 100 IV ×4 (03:31→20:16)
[2024-11-23] MEDS: ZANAFLEX 2 MG PO ×3 (05:52→21:17)
[2024-11-23 06:21] LABS: Triglycerides 150 mg/dl (10-149)
[2024-11-23] MEDS: DOLOPHINE 50 MG PO (08:36)
[2024-11-23] MEDS: VITAMIN B1 100 MG PO (08:36)
[2024-11-23] MEDS: DAKIN'S SOLUTION 0.125% 1/4 STRENGTH 1 ML TOPICAL (08:37)
[2024-11-23] MEDS: NICODERM TRANSDERMAL 21 MG TRANSDERM (08:37)
[2024-11-23] MEDS: HEPARIN 5000 UNITS SC ×2 (08:37→20:16)
[2024-11-23] MEDS: NORVASC 10 MG PO (08:37)
--- NOTE | 2024-11-23 09:27 | W.PN.HOSP.TC ---
Today's Communication/Plan
-
Hope to discharge soon
on IV Zosyn
Will need rehab upon discharge, hospitalist does not provide script of methadone upon discharge
Assessment / Plan
Assessment / Plan
Physical Exam
General: Appears Chronically Ill
HEENT: Normocephalic
Respiratory: Good air, no wheezes
Cardiac: S1/S2 and Tachycardia
GI: Sofr, non tender, not distended.
Musculoskeletal: No Cyanosis
, + Flores, no hematuria
Skin: Other (Wounds on bilateral lower extremities with clean dressing )
Neuro: Alert. Awake.
Psych: Calm
Assessment/Plan
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
Polysubstance use (including heroin)
Abnormal UDS positive for fentanyl, opiates, cocaine + THC
History of UDS positive for fentanyl, cocaine, and marijuana
-Continue Clonidine QID but lower the dose. ,
-Continue oxycodone, will lower the dose due to oversedation.
Off Precedex drip.
- On methadone
-c/w Zanaflex QID, will lower the dose due to over sedation.
#Septic Shock --due to pneumonia and lower extremity necrotizing wounds particularly the left lower extremity, use of Xylazine?
Necrotizing soft tissue infection involving left lower extremity s/p excisional debridement (performed 11/17/2024)
History of IVDA/heroin use, Use using lower extremities
Lactic Acidosis
Left Mid to Lower Lung Pneumonia -- Sputum culture with Staphylococcus aureus (MSSA)
Suspected Infection related to wounds from IVDU
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
History of MRSA
Acute Hypoxic Respiratory Failure
Acute Toxic Metabolic Encephalopathy Secondary to the Above
-Blood cultures x2 ordered NGTD
-s/p IVF
Wound culture with polymicrobial organisms including group A strep, Proteus, Morganella
-Right femoral CVC removed without incident 11/19. IV team was able to place a 2nd PIV prior to removal.
-s/p Vancomycin and Zosyn, now with Zosyn =, day #6
-Patient has been extubated on 11/18/24
-Received vasopressors in the ER --> has been weaned off
-LLE with significant necrosis noted on the left side extending to the muscle
-General surgery consulted and performed bedside debridement
Consulted ID, appreciate help
# High blood pressure due to withdrawal
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
c/w Clonidine, PRN hydralazine, will start to lower dose of clonidine
Slightly elevated TSH, not c/w hypothyroids, related to stress response.
added oral Amlodipine
# Ileus
c/w NG, IVF, resolved
tolerating diet now
# severe protein calorie malnutrition
#Anion Gap Metabolic Acidosis Suspected from Lactic Acidosis and Starvation
resolving.
#Acute Microcytic Anemia -- acute blood loss anemia from his bleeding lower extremity wounds
-Hgb 5.3 initially
-2 units PRBCs given
on IV Iron, day # 3
-Checked iron studies, iron deficiency present
#HEYDI with mild hyperkalemia (potassium now normalized)
likely ATN from drugs
Hypernatremia likely from reduced oral intake, resolved.
-Now, continue D5W IV fluids+Thiamine given hypernatremia
-Monitor for Refeeding Syndrome; monitor magnesium and phosphorus levels
#Thrombocytosis � likely reactive due to sepsis and drug withdrawal
#History of osteomyelitis of the right elbow joint (chronic)/ Left lower extremity chronic wounds bilaterally (LT>RT)
-LLE with significant necrosis noted on the left side extending to the muscle
-General surgery consulted and performed bedside debridement on 11/18/24
-Wound care consulted. Dakin's wet to dry Kerlix wrap twice daily. Once patient's infection is cleared, can switch to Adaptic, gauze and Kerlix wrap.
#Anxiety/Depression
Mood is cooperative
#Smoking
Tobacco use disorder
-Nicotine patch
Vaping
DVT Prophylaxis: Heparin Subq
Code Status: Full Code
Total time spent to see the patient, examined the patient, reviewed the data and lab results, discuss treatment plan with patient and nursing staff around 55 minutes
Anticipated Discharge: 24 - 48 hours
Subjective/Interval History
-
Date of Service: November 23, 2024
Seems short tempered and refused to talk much
Objective Data
-
Vital Signs:
Vital Signs
Temp Pulse Resp BP Pulse Ox
98.4 F 67 16 129/92 98
11/23/24 07:08 11/23/24 07:08 11/23/24 07:08 11/23/24 07:08 11/23/24 07:08
I&O
11/22/24 11/23/24 11/24/24
06:59 06:59 06:59
Intake Total 1490 / 1490 2790 / 2790
Output Total 2575 / 2575 2900 / 2900
Balance -1085 / -1085 -110 / -110
--- NOTE | 2024-11-23 10:41 | W.PN.ID1 ---
Date of Service
Date of Service: November 23, 2024
Today's Communication
Last day of Zosyn (d7 ).
ID will sign off. Call prn.
Assessment / Plan
# Left lower extremity extensive necrotizing wound from IV drug use
-November 17 status post OR excisional debridement to healthy tissue. Wound appearance improved since then.
-OR culture with polymicrobial organisms including group A strep, Proteus, Morganella
- LLE wound now appears healthy
-Last day of Zosyn (d7 ).
-Continue wound care
# Pneumonia
# Status post acute respiratory failure, extubated November 18
-Sputum culture with Staphylococcus aureus (MSSA)
-Last day of Zosyn (d7 )
# IV drug use
# Hepatitis C, untreated
-Repeat HIV screen - negativd
# Profound protein�calorie malnutrition
ID will sign off.
Chief Complaint
-: Cellulitis
Subjective / Review of Systems
No new complaints.
Vital Signs / Physical Exam
Vital Signs
Vital Signs
Temp Pulse Resp BP Pulse Ox
98.4 F 67 16 129/92 98
11/23/24 07:08 11/23/24 07:08 11/23/24 07:08 11/23/24 07:08 11/23/24 07:08
Physical Exam
Constitutional: Chronically Ill and Cachetic
Oropharyngeal: Poor Dention
Cardiovascular: Regular Rate and S1/S2
Pulmonary: Clear (anteriorly)
Gastrointestinal: Soft, Non Tender and Non Distended
Extremities: Negative Edema
Wound: Other (Reviewed wound photos: LLE large wound with beefy red granulation tissue,scant necrosis)
Objective Data
Lab Data
Lab Results
11/22/24 05:50
11/22/24 05:50
PT 19.8 Sec (11.4-14.6) H 11/17/24 09:08
INR 1.66 11/17/24 09:08
APTT 44.4 Sec (23.4-35.0) H 11/17/24 09:08
Estimated Creat Clear 71 ml/min 11/22/24 05:50
Lactic Acid 0.8 mmol/L (0.7-2.0) 11/17/24 18:08
Total Bilirubin 0.6 mg/dl (0.2-1.3) 11/22/24 05:50
GGT 132 U/L (15-73) H 11/18/24 04:41
AST 29 U/L (17-59) 11/22/24 05:50
ALT 15 U/L (0-50) 11/22/24 05:50
Alkaline Phosphatase 352 U/L (38-126) H 11/22/24 05:50
Most recent labs reviewed.
Micro Results:
11/17/24 16:24 Wound Culture - Final
Leg - Left Proteus vulgaris
Morganella morganii
Group C Streptococcus
Streptococcus pyogenes
Gram Stain - Final
11/17/24 16:24 Anaerobic Culture - Final
Leg - Left
11/23/24 08:51 MRSA Screen - Pending
Nose
11/17/24 09:08 Blood Culture - Final
Blood/Venous No Growth - Final Report
11/17/24 08:26 Blood Culture - Final
Blood/Venous No Growth - Final Report
11/17/24 13:21 Respiratory Culture - Final
Endotracheal S aureus-Methicillin Sensitive
Gram Stain - Final
11/19/24 12:43 Legionella Urinary Antigen - Final
Urine Negative for Legionella pneumophila Serogroup 1 antigen.
A negative result does not rule out the possiblity of
Legionella infection due to other serogroups or species of
Legionella. Clinical correlation is recommended.
Streptococcus pneumoniae Antigen (M - Final
Negative for Streptococcus pneumoniae antigen.
A negative result does not exclude infection with
Streptococcus pneumoniae. Clinical correlation is
recommended.
11/17/24 13:16 MRSA Screen - Final
Nose No Methicillin Resistant Staphylococcus aureus isolated.
11/18/24 CXR: Patchy parenchymal opacities within both lungs, likely pneumonia. No evidence for associated pleural effusion.
11/17/24 CT a/p: Confluent parenchymal opacity within the left lower lobe of the lung, most likely pneumonia. Differential considerations of atelectasis or a combination of pneumonia and atelectasis. Multiple small nodular and groundglass opacities
throughout the visualized right lower lung, which is likely a diffuse small airway pneumonitis. Linear densities within the right lower lung compatible with discoid atelectasis. Distention of the stomach. Distention of small bowel loops, most likely
focal ileus. No evidence for free intraperitoneal air. Small bowel obstruction not excluded. Hepatomegaly and splenomegaly, with slight increase in size of liver and spleen compared to prior CT in 2021.
--- NOTE | 2024-11-23 11:41 | CM ---
Spoke with patient bedside.
Patient denies need for inpatient rehab. Stated hw will . e
[2024-11-23] MEDS: FERRLECIT 110 MG IV (13:26)
--- NOTE | 2024-11-23 13:57 | CM ---
Addendum entered by Jacinda Toure 11/23/24 16:38:
Spoke with patients mother, she would prefer [facility], but [facility] then she is good with that too.
Original Note:
Spoke with patient bedside.
Per patient he wants to go to a clinic after d/c.
Spoke with Orlando from [facility] he will try to get patient to agree to rehab, clinicals provided.
Maria Teresa from [facility] in to see patient and patient again declined inpatient rehab.
Patient aware Orlando will be in to see him tomorrow.
Message received that Akosua from [facility] in [place] would like to speak with me re a health assessment. P# [phone].
TC to patients mother Adriana and left .
Spoke with patient and he agreed for me to share information with Akosua and fax medical information.
Spoke with Akosua from [facility], she knows patient from the [facility] and is assisting with getting patient into rehab at [facility] [place]. She requested clinicals be faxed to Rosmery at [phone], clinicals
faxed.
[facility] updated, they will continue to support.
Await call from Akosua or Rosmery to see if patient is accepted to [facility].
Plan: D+A rehab, await bed availability and medical stability
[2024-11-24] MEDS: CATAPRES 0.2 MG PO ×2 (00:02→05:35)
[2024-11-24] MEDS: ROXICODONE 5 MG PO ×2 (00:02→08:36)
[2024-11-24] MEDS: ZOSYN 100 IV (02:13)
[2024-11-24 03:23] VITALS: BP 121/84
[2024-11-24] MEDS: ZANAFLEX 2 MG PO ×2 (05:34→14:45)
[2024-11-24 07:05] VITALS: BP 133/94
--- NOTE | 2024-11-24 08:12 | W.PN.HOSP.TC ---
Addendum entered and electronically signed by Jagruti Joyce MD 11/24/24 15:00:
Addendum
Discussed with case manager specialist, patient has a better rehab and agreeable to go. Mother was updated.
Total discharge time spent to see the patient, examine the patient, review data and lab results, discuss discharge plan with patient, case manager specialist, nursing staff around 65 minutes
Original Note:
Today's Communication/Plan
-
dc planning
Hospitalist can not provide script for methadone upon discharge.
Assessment / Plan
Assessment / Plan
Physical Exam
General: Appears Chronically Ill, not in distress.
HEENT: Normocephalic
Respiratory: Good air, no wheezes
Cardiac: S1/S2 and Tachycardia
GI: Sofr, non tender, not distended.
Musculoskeletal: No Cyanosis
, + Flores, no hematuria
Skin: Other (Wounds on bilateral lower extremities with clean dressing )
Neuro: Alert. Awake. Follows commands. No tremor. Able to walk around.
Psych: Calm
Assessment/Plan
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
Polysubstance use (including heroin)
Abnormal UDS positive for fentanyl, opiates, cocaine + THC
History of UDS positive for fentanyl, cocaine, and marijuana
-Continue Clonidine QID but lower the dose. ,
-Continue oxycodone, lower the dose due to oversedation.
Off Precedex drip.
- On methadone
-c/w Zanaflex QID, lower the dose due to over sedation.
#Septic Shock --due to pneumonia and lower extremity necrotizing wounds particularly the left lower extremity, use of Xylazine?
Necrotizing soft tissue infection involving left lower extremity s/p excisional debridement (performed 11/17/2024)
History of IVDA/heroin use, Use using lower extremities
Lactic Acidosis
Left Mid to Lower Lung Pneumonia -- Sputum culture with Staphylococcus aureus (MSSA)
Suspected Infection related to wounds from IVDU
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
History of MRSA
Acute Hypoxic Respiratory Failure
Acute Toxic Metabolic Encephalopathy Secondary to the Above
-Blood cultures x2 ordered NGTD
-s/p IVF
Wound culture with polymicrobial organisms including group A strep, Proteus, Morganella. Per wound care nurse, looking good with granulation tissue foring.
-Right femoral CVC removed without incident 11/19. IV team was able to place a 2nd PIV prior to removal.
-s/p Vancomycin and Zosyn, then with Zosyn, finished 7 days.
Patient has been extubated on 11/18/24
-Received vasopressors in the ER --> has been weaned off
-General surgery consulted and performed bedside debridement
Consulted ID, appreciate help
# High blood pressure due to withdrawal
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
c/w Clonidine, PRN hydralazine, will start to lower dose of clonidine
Slightly elevated TSH, not c/w hypothyroids, related to stress response.
added oral Amlodipine
# Ileus
c/w NG, IVF, resolved
tolerating diet now
# severe protein calorie malnutrition
#Anion Gap Metabolic Acidosis Suspected from Lactic Acidosis and Starvation
resolving.
#Acute Microcytic Anemia -- acute blood loss anemia from his bleeding lower extremity wounds
-Hgb 5.3 initially
-2 units PRBCs given
finished IV Iron,
-Checked iron studies, iron deficiency present
#HEYDI with mild hyperkalemia (potassium now normalized)
likely ATN from drugs
Hypernatremia likely from reduced oral intake, resolved.
#Thrombocytosis � likely reactive due to sepsis and drug withdrawal
#History of osteomyelitis of the right elbow joint (chronic)/ Left lower extremity chronic wounds bilaterally (LT>RT)
-LLE with significant necrosis noted on the left side extending to the muscle
-General surgery consulted and performed bedside debridement on 11/18/24
-Wound care consulted. Dakin's wet to dry Kerlix wrap twice daily. Once patient's infection is cleared, can switch to Adaptic, gauze and Kerlix wrap.
#Anxiety/Depression
Mood is cooperative
#Smoking
Tobacco use disorder
-Nicotine patch
Vaping
DVT Prophylaxis: Heparin Subq
Code Status: Full Code
Total time spent to see the patient, examined the patient, reviewed the data and lab results, discuss treatment plan with patient and nursing staff around 55 minutes
Anticipated Discharge: Within 24 hours
Subjective/Interval History
-
Date of Service: November 24, 2024
denies pain or sob
Objective Data
-
Vital Signs:
Vital Signs
Temp Pulse Resp BP Pulse Ox
98.1 F 72 16 133/94 97
11/24/24 07:05 11/24/24 07:05 11/24/24 07:05 11/24/24 07:05 11/24/24 07:05
I&O
11/23/24 11/24/24 11/25/24
06:59 06:59 06:59
Intake Total 2790 / 2790 2014
Output Total 2900 / 2900 2150 / 2150
Balance -110 / -110 -135 / -135
[2024-11-24] MEDS: DOLOPHINE 50 MG PO (08:35)
[2024-11-24] MEDS: NICODERM TRANSDERMAL 21 MG TRANSDERM (08:35)
[2024-11-24] MEDS: HEPARIN 5000 UNITS SC (08:36)
[2024-11-24] MEDS: VITAMIN B1 100 MG PO (08:36)
[2024-11-24] MEDS: DAKIN'S SOLUTION 0.125% 1/4 STRENGTH 473 ML TOPICAL (08:37)
[2024-11-24] MEDS: NORVASC 10 MG PO (08:38)
--- NOTE | 2024-11-24 09:32 | CM ---
Addendum entered by Jacidna Toure 11/24/24 14:32:
Patient accepted at [facility], Bed available.
BENITA obtained auth.
[facility] will be here to transport at 3:45, main raphael, nursing, patient and MD updated.
Plan: d/c to [facility] for addiction.
Addendum entered by Jacinda Toure 11/24/24 12:58:
[place] spoke with [facility] and they are unable to accept today. They said they cannot do his wounds. Orlando is checking with [facility] to make sure bed is still available. Akosua from [facility] if going to reach out to the patient
and support a plan for [facility] and eventual transfer to the [facility].
Addendum entered by Jacinda Toure 11/24/24 12:33:
Spoke with Orlando from [facility], Patient wants to go to [facility], was accepted at [facility] for today or tomorrow, will need auth for either facility. Orlando from [facility] working with [facility] to see if he will be
accepted. If they will not accept then patient is reluctantly agreeable to [facility].
ALEX spoke with Akosua Stoddard from [facility] and she reached out to [facility] and gave a training personnel supervisor of Francine, . Orlando is reaching out to [facility].
Original Note:
TC to [facility] [phone], spoke with Cliff, (Clinicals faxed to [facility] yesterday), he will try to locate referral.
Orlando from [facility] to see patient today.
Plan: await bed availability for [facility].
[2024-11-24 11:45] VITALS: BP 124/84
[2024-11-24] MEDS: CATAPRES 0.1 MG PO (14:45)
[2024-11-24 14:50] VITALS: BP 125/87
--- NOTE | 2024-11-24 14:52 | W.DCSUMMARY ---
Discharge Summary
Discharge Data
Date of Admission: 11/17/24
Date of Discharge: 11/24/24
-
Pending Results: No
Hospital Course
29 years old male was admitted to the hospital with change in mental status, hypoxia, lethargy. Patient had extensive history of polysubstance abuse including intravenous drug use and he was homeless. Patient was diagnosed with sepsis-lactic
acidosis/septic shock with multiple organ failure. He was found to have necrotizing cellulitis and infected wound in both lower extremities with pneumonia. Patient was admitted to the intensive care unit. He had acute hypoxic respiratory failure
and was intubated with pressure support. Patient received broad-spectrum intravenous antibiotic. Surgery evaluated the patient did surgical debridement of lower extremity wounds. He received extensive wound care during hospitalization. Patient
improved and was able to be extubated. He was started on opioid withdrawal with initially intravenous Precedex with the clonidine, oxycodone, tizanidine. Urine drug screen was positive for opioids, fentanyl, cocaine, marijuana. He subsequently was
started on tapering dose of oxycodone with methadone treatment. He was also noticed to have blood loss anemia. Patient reported to have multiple wounds with frequent bleedings from his wounds and needle use with poor nutritional intake. Patient
was homeless. He received 2 units of blood transfusion and received intravenous iron for iron deficiency anemia. Patient was moved out of intensive care unit. He was followed by physical therapy. Infection disease DrNirav Monitored antibiotic use.
Patient finished course of treatment of antibiotic in the hospital. Patient did not have hypoxia or respiratory problems. His lower extremity wounds started to show some healthy granulation tissue. His withdrawal symptoms seem to be better
controlled with combination of tizanidine, clonidine, low-dose oxycodone and methadone. Patient remained hemodynamically stable. His basic metabolic panel and white blood cell count stabilized. Hemoglobin stabilized around 8. Patient was
evaluated by field nurse case manager. Patient and his mother agreed to go to inpatient rehabilitation. Patient was discharged to rehab in a stable condition.
Discharge Plan
-
Patient Disposition: Acute Rehab Facility
Discharge Diagnosis/Procedures: - Chronic IVDU with chronic opioid use disorder/ Polysubstance use
-Septic Shock --due to pneumonia and bilateral lower extremity necrotizing wounds/ Necrotizing soft tissue infection involving left lower extremity s/p excisional debridement. Off antibiotics. Continue with wound care.
-Acute Microcytic Anemia -- acute blood loss anemia from his bleeding lower extremity wounds. Hgb 5.3 initially, status post 2 units PRBCs and IV Iron.
- HEYDI, resolved.
Diet: As tolerated
Activity Restrictions/Additional Instructions:
Wound Care Instructions Right LE and Left LE- Clean with Vashe moistened gauze for 5 minutes. Apply Xeroform to open wounds and cover with ABD and wrap with charlie. Change daily.
Sacrum- Apply 5 layer silicone border foam. Change Q 3 days and PRN if
Follow up at wound care center call for an appointment.
Referrals:
NONE,* [Family Provider] -
Prescriptions:
New
clonidine HCl 0.1 mg Tablet
0.1 mg PO Q8H Qty: 10 0RF
tizanidine 2 mg Tablet
2 mg PO Q8H Qty: 10 0RF
methadone 10 mg Tablet
50 mg PO DAILY Qty: 1 0RF
amlodipine 10 mg Tablet
10 mg PO DAILY Qty: 10 0RF
nicotine 21 mg/24 hr Patch 24 Hour
21 mg transdermal DAILY Qty: 10 0RF
Discharge Orders:
Discharge Patient (As Directed); Ordered 11/24/24
Ordered By: Jagruti Joyce
Discharge Date and Time
Discharge Date/Time: 11/24/24 15:45
Print Language: INDONESIAN
[2024-11-24 15:23] VITALS: BP 136/93
== END 2024-11-24 15:45 | DRG 853 ==
LOC: 2 NORTH 10:48
PROVIDERS: Nurse Practitioner Primary Care; Physician Assistant; ADMITTING PHYSICIAN Hospitalist; ATTENDING PHYSICIAN Internal Medicine; CONSULT PHYSICIAN Internal Medicine Infectious Disease; CONSULT PHYSICIAN Surgery; EMERGENCY PHYSICIAN Emergency Medicine; OTHER PHYSICIAN Internal Medicine Critical Care Medicine
PROC: 30243N1 Transfusion of Nonautologous Red Blood Cells into Central Vein, Percutaneous Approach (ICD-10-PCS; 2024-11-17)
PROC: 5A1935Z Respiratory Ventilation, Less than 24 Consecutive Hours (ICD-10-PCS; 2024-11-17)
PROC: 0JBP0ZZ Excision of Left Lower Leg Subcutaneous Tissue and Fascia, Open Approach (ICD-10-PCS; 2024-11-17)
PROC: 0BH17EZ Insertion of Endotracheal Airway into Trachea, Via Natural or Artificial Opening (ICD-10-PCS; 2024-11-17)
DX: A41.9 Sepsis, unspecified organism (principal); E43 Unspecified severe protein-calorie malnutrition; G92.8 Other toxic encephalopathy; J18.9 Pneumonia, unspecified organism; R65.21 Severe sepsis with septic shock; J96.01 Acute respiratory failure with hypoxia; F11.23 Opioid dependence with withdrawal; I96 Gangrene, not elsewhere classified; D62 Acute posthemorrhagic anemia; N17.9 Acute kidney failure, unspecified; Z59.02 Unsheltered homelessness; E87.20 Acidosis, unspecified; K56.7 Ileus, unspecified; Z68.1 Body mass index [BMI] 19.9 or less, adult; E87.0 Hyperosmolality and hypernatremia; L03.116 Cellulitis of left lower limb; L03.115 Cellulitis of right lower limb; R64 Cachexia; Z86.14 Personal history of Methicillin resistant Staphylococcus aureus infection; E87.5 Hyperkalemia; D75.839 Thrombocytosis, unspecified; F41.9 Anxiety disorder, unspecified; F32.A Depression, unspecified; F17.200 Nicotine dependence, unspecified, uncomplicated; Z90.49 Acquired absence of other specified parts of digestive tract; E86.1 Hypovolemia; E87.8 Other disorders of electrolyte and fluid balance, not elsewhere classified
CPT/HCPCS: 31500; 36430; 36556; 43752; 51702; 70450; 71045; 74177; 80048; 80053; 80202; 80306; 80307; 81003; 81015; 82607; 82728; 82746; 82805; 82977; 83036; 83540; 83550; 83605; 83735; 84100; 84443; 84466; 84478; 85014; 85018; 85025; 85027; 85045; 85610; 85730; 86850; 86900; 86901; 86920; 87040; 87070; 87075; 87077; 87147; 87186; 87205; 87389; 87449; 87899; 93005; 94002; 94003; 96361; 96365; 96366; 96367; 96375; 97116; 97162; 97166; 99291; J2916; P9016; Q9967

== ENCOUNTER 2025-06-05 22:48 | Inpatient (IN) | payer OTHER, SELFPAY ==
[2025-06-05] VITALS (9 sets, daily range): BP systolic 116–188; BP diastolic 75–108; BMI 18.8
--- NOTE | 2025-06-05 20:20 | ED.GENMED ---
History of Present Illness
<Grady Solis PA-C - Last Filed: 06/05/25 22:06>
General
Chief Complaint: Skin Problem
Source: patient and records
Time Seen by Provider: 06/05/25 19:14
History of Present Illness
History of Present Illness:
30-year-old male with past medical history of chronic IV drug use, osteomyelitis of the right elbow, with chronic wound to the left lower extremity presenting back to the emergency department after he attempted to go back to his rehab facility today
but his rehab refused admission because he needed treatment to his wounds. Patient states he is still using, injecting into the affected wounds, last use was earlier this afternoon. Patient is accompanied by a friend who has been helping the
patient through his IV drug abuse and struggles with this over the last few years patient notes pain to the affected left lower extremity and right elbow but states this is not any than his usual. He has no other concerns at this time. He notes
that he was admitted at this facility previously and had surgery to the same left leg, was recommended to have surgery on his right elbow but never followed through with this treatment
Past History
<Grady Solis PA-C - Last Filed: 06/05/25 22:06>
Past History
ED Past Medical History: Psychiatric and Other (IVDA, previous cellulitis, chronic lower leg wounds)
ED Past Surgical History: Appendectomy
Patient has exhibited threatening behavior?: No
Social History
Tobacco: Smoker
Alcohol: None
Drug: Narcotics and IVDA
Personal: Single
Living: homeless
Family History
Family History: Negative Diabetes, Hypertension or CAD
Review of Systems
<PAUL Cortez Last Filed: 06/05/25 22:06>
Review of Systems
All Other Systems: ROS reviewed and negative except as documented in HPI and ROS
Phy Exam
<Grady Solis PA-C - Last Filed: 06/05/25 22:06>
Physical Exam
Physical Exam:
GENERAL: Alert , in no apparent distress, ill/sickly appearing, appears much older than stated age, unkempt, significantly malodorous
HEAD: Normocephalic atraumatic
EYE: clear conjunctiva
NECK: Supple
ENT: o/p clr, mmm.
CARDIAC: Regular rate and rhythm .
LUNGS: Clear breath sounds bilaterally, no acute respiratory distress, no wheezes/rales/rhonchi
ABDOMEN: Soft, without focal tenderness, no r/g, no cvat
NEUROLOGICAL: Alert and oriented
SKIN: Warm and dry, skin intact.
MUSCULOSKELETAL: LLE: Large malodorous wet/weeping wound to the anterior left lower leg from the distal ankle to the proximal third of the tibia, no bony involvement or bone exposed. Slight bleeding noted. Significant edema. Sensation intact.
Right upper extremity: Flexed at 90 degrees at the elbow with the patient unable to fully extend the elbow, pain with attempted range of motion. Muscle wasting to bilateral upper extremities noted, slightly worse on the right side. Palpable radial
pulse. Cap refill less than 2 seconds.
PSYCH: Normal and appropriate interaction.
Scores
<Grady Solis PA-C - Last Filed: 06/05/25 22:06>
Heart Failure Risk
Heart Failure Risk Score: Not Applicable
Heart Score for Chest Pain Patients
STEMI patient?: Not applicable
Withdrawal Assessment of Alcohol
Withdrawal Assessment Completed?: Not applicable
Course
<Grady Solis PA-C - Last Filed: 06/05/25 22:06>
Orders/Labs/Results
Orders:
Orders
06/05/25 19:47
Piperacillin/Tazo 3.375 Gram [Zosyn] 3.375 gram in 50 ml IV NOW
CR Elbow - Right Min 3 Views Urgent
Comment:
Reason For Exam: pain, hx osteomyelitis
CR Leg Tibia/fibula Left 2 Vw Urgent
Comment:
Reason For Exam: large wound
06/05/25 19:49
Midline IV As Directed
06/05/25 20:07
Vancomycin [Vancocin] 1,500 mg 0.9% Sodium Chloride 500 ml [Nss] 500 ml IV NOW
06/05/25 20:34
Type+Screen Urgent
Alcohol Urgent
CRP [C-Reactive Protein] Urgent
Complete Blood Count/With Diff Urgent
Comprehensive Metabolic Panel Urgent
ESR [Erythrocyte Sed Rate] Urgent
Lactic Acid Q4H
Comment: CANCEL 2nd LACTIC ACID IF 1st LACTIC ACID IS LESS THAN 2
PTT Urgent
Prothrombin Time Urgent
Blood Culture Q30M
CATRACHITO Source: Blood/Venous
Specimen Description:
06/05/25 21:04
Blood Bank Products [* Blood Bank Products] Urgent
Blood Bank Products: *Packed RBC Leuko (PRBC's
Quantity: 2
Transfuse Today: Yes
Reason: Anemia
06/05/25 21:15
Blood Culture Q30M
CATRACHITO Source: Blood/Venous
Specimen Description:
06/05/25 21:43
Buprenorphine [Subutex] 8 mg SL PRN PRN
Clonidine [Catapres] 0.1 mg PO Q6HPRN PRN
Dicyclomine [Bentyl] 10 mg PO Q6HPRN PRN
Diphenhydramine [Benadryl] 50 mg PO Q6HPRN PRN
Ketorolac [Toradol] 10 mg IV Q6HPRN PRN
Loperamide [Imodium] 2 mg PO Q4HPRN PRN
Ondansetron Injectable [Zofran] 4 mg IV Q6HPRN PRN
Tizanidine [Zanaflex] 2 mg PO Q6HPRN PRN
06/05/25 21:44
Electrocardiogram (*1) Routine
Reason for Study: QTc Monitoring
Comment: if not already done in ED
Case Management Consult ONCE
Case Management Consult: Other
Comment: opioid withdrawal
Clinical Opioid Withdrawal Scale (COWS) Q4
Frequency:: now, Q4 hours x 24 hours, then PRN based on symptoms
06/05/25 21:48
Add On- LAB Urgent
Tests Added?: alcohol
06/05/25 21:50
Fentanyl, Urine Urgent
Urine Drug Abuse Screen Urgent
Date Specimen was Collected: 06/05/25
Time Specimen was Collected: 21:47
06/05/25 21:56
Electrocardiogram (*1) Routine
Reason for Study: QTc Monitoring
Comment: if not already done in ED
Case Management Consult ONCE
Case Management Consult: Other
Comment: opioid withdrawal
Naloxone [Narcan] 0.4 mg IV Q5MPRN PRN
Oxycodone [Roxicodone] 20 mg PO Q4HPRN PRN
Tizanidine [Zanaflex] 2 mg PO Q6HPRN PRN
Clinical Opioid Withdrawal Scale (COWS) Q4
Frequency:: now, Q4 hours x 24 hours, then PRN based on symptoms
06/06/25 00:00
Acetaminophen [Tylenol] 1,000 mg PO Q8
Buprenorphine HCl [Belbuca] 300 mcg BUCCAL Q4
Oxycodone Controlled Release [Oxycontin (Controlled Release)] 40 mg PO Q8
06/06/25 06:00
Kbnjr-Jdax-Nhvwvoc IN AM
06/06/25 08:00
Buprenorphine [Subutex] 4 mg SL ONCE PRN PRN
Buprenorphine [Subutex] See Dose Instructions SL ONCE ONE
06/06/25 22:00
Buprenorphine [Subutex] 2 mg SL QID
06/07/25 08:00
Buprenorphine [Subutex] See Dose Instructions SL DAILY
06/07/25 22:00
Buprenorphine [Subutex] 4 mg SL QID
06/08/25 00:00
Oxycodone Controlled Release [Oxycontin (Controlled Release)] 20 mg PO Q8
06/08/25 21:56
Buprenorphine [Subutex] 2 mg SL Q4HPRN PRN
06/09/25 08:00
Buprenorphine [Subutex] 8 mg SL BID@0800,2000
06/10/25 08:00
Buprenorphine [Subutex] 16 mg SL DAILY@0800
Abnormal Lab Results
06/05/25
20:34
RBC 2.65 L 10^6/uL
(4.70-6.10)
Hgb 5.3 L* g/dL
(13.0-18.0)
Hct 18.4 L* %
(39.0-52.0)
MCV 69.4 L fL
(80.0-94.0)
MCH 20.0 L pg
(27.0-31.0)
MCHC 28.8 L g/dL
(33.0-37.0)
RDW 23.4 H %
(11.5-14.5)
Plt Count 413 H 10^3/uL
(130-400)
Absolute Neuts (auto) 7.1 H 10^3/uL
(1.4-6.5)
Absolute Lymphs (auto) 0.9 L 10^3/uL
(1.2-3.4)
Neutrophils % 82.7 H %
(42.2-75.2)
Lymphocytes % 10.0 L %
(20.5-51.1)
ESR 135 H mm/hour
(0-20)
PT 18.6 H Sec
(11.4-14.6)
APTT 46.1 H Sec
(23.4-35.0)
Carbon Dioxide 20 L mmol/L
(22-30)
BUN 32 H mg/dl
(9-20)
Glucose 120 H mg/dl
(70-99)
Calcium 7.9 L mg/dl
(8.4-10.2)
Alkaline Phosphatase 398 H U/L
(38-126)
C-Reactive Protein 54.20 H mg/L
(0.0-10.00)
Albumin 3.0 L g/dl
(3.5-5.0)
Crossmatch IS Only See Detail
06/05/25 20:34
06/05/25 20:34
Vital Signs
Initial and Last Documented VS:
Initial Vital Signs
Temp Pulse Resp BP Pulse Ox
98.4 F 105 16 154/108 98
06/05/25 18:26 06/05/25 18:26 06/05/25 18:26 06/05/25 18:26 06/05/25 18:26
Last Documented Vital Signs
Temp Pulse Resp BP Pulse Ox
98.4 F 96 17 123/83 100
06/05/25 18:26 06/05/25 21:45 06/05/25 21:45 06/05/25 21:00 06/05/25 20:46
<Tara Breen MD - Last Filed: 06/05/25 22:06>
Orders/Labs/Results
Orders:
Orders
06/05/25 19:47
Piperacillin/Tazo 3.375 Gram [Zosyn] 3.375 gram in 50 ml IV NOW
CR Elbow - Right Min 3 Views Urgent
Comment:
Reason For Exam: pain, hx osteomyelitis
CR Leg Tibia/fibula Left 2 Vw Urgent
Comment:
Reason For Exam: large wound
06/05/25 19:49
Midline IV As Directed
06/05/25 20:07
Vancomycin [Vancocin] 1,500 mg 0.9% Sodium Chloride 500 ml [Nss] 500 ml IV NOW
06/05/25 20:34
Type+Screen Urgent
Alcohol Urgent
CRP [C-Reactive Protein] Urgent
Complete Blood Count/With Diff Urgent
Comprehensive Metabolic Panel Urgent
ESR [Erythrocyte Sed Rate] Urgent
Lactic Acid Q4H
Comment: CANCEL 2nd LACTIC ACID IF 1st LACTIC ACID IS LESS THAN 2
PTT Urgent
Prothrombin Time Urgent
Blood Culture Q30M
CATRACHITO Source: Blood/Venous
Specimen Description:
06/05/25 21:04
Blood Bank Products [* Blood Bank Products] Urgent
Blood Bank Products: *Packed RBC Leuko (PRBC's
Quantity: 2
Transfuse Today: Yes
Reason: Anemia
06/05/25 21:15
Blood Culture Q30M
CATRACHITO Source: Blood/Venous
Specimen Description:
06/05/25 21:43
Buprenorphine [Subutex] 8 mg SL PRN PRN
Clonidine [Catapres] 0.1 mg PO Q6HPRN PRN
Dicyclomine [Bentyl] 10 mg PO Q6HPRN PRN
Diphenhydramine [Benadryl] 50 mg PO Q6HPRN PRN
Ketorolac [Toradol] 10 mg IV Q6HPRN PRN
Loperamide [Imodium] 2 mg PO Q4HPRN PRN
Ondansetron Injectable [Zofran] 4 mg IV Q6HPRN PRN
Tizanidine [Zanaflex] 2 mg PO Q6HPRN PRN
06/05/25 21:44
Electrocardiogram (*1) Routine
Reason for Study: QTc Monitoring
Comment: if not already done in ED
Case Management Consult ONCE
Case Management Consult: Other
Comment: opioid withdrawal
Clinical Opioid Withdrawal Scale (COWS) Q4
Frequency:: now, Q4 hours x 24 hours, then PRN based on symptoms
06/05/25 21:48
Add On- LAB Urgent
Tests Added?: alcohol
06/05/25 21:50
Fentanyl, Urine Urgent
Urine Drug Abuse Screen Urgent
Date Specimen was Collected: 06/05/25
Time Specimen was Collected: 21:47
06/05/25 21:56
Electrocardiogram (*1) Routine
Reason for Study: QTc Monitoring
Comment: if not already done in ED
Case Management Consult ONCE
Case Management Consult: Other
Comment: opioid withdrawal
Naloxone [Narcan] 0.4 mg IV Q5MPRN PRN
Oxycodone [Roxicodone] 20 mg PO Q4HPRN PRN
Tizanidine [Zanaflex] 2 mg PO Q6HPRN PRN
Clinical Opioid Withdrawal Scale (COWS) Q4
Frequency:: now, Q4 hours x 24 hours, then PRN based on symptoms
06/06/25 00:00
Acetaminophen [Tylenol] 1,000 mg PO Q8
Buprenorphine HCl [Belbuca] 300 mcg BUCCAL Q4
Oxycodone Controlled Release [Oxycontin (Controlled Release)] 40 mg PO Q8
06/06/25 06:00
Cxmee-Rxdn-Ktkybvi IN AM
06/06/25 08:00
Buprenorphine [Subutex] 4 mg SL ONCE PRN PRN
Buprenorphine [Subutex] See Dose Instructions SL ONCE ONE
06/06/25 22:00
Buprenorphine [Subutex] 2 mg SL QID
06/07/25 08:00
Buprenorphine [Subutex] See Dose Instructions SL DAILY
06/07/25 22:00
Buprenorphine [Subutex] 4 mg SL QID
06/08/25 00:00
Oxycodone Controlled Release [Oxycontin (Controlled Release)] 20 mg PO Q8
06/08/25 21:56
Buprenorphine [Subutex] 2 mg SL Q4HPRN PRN
06/09/25 08:00
Buprenorphine [Subutex] 8 mg SL BID@799,1999
06/10/25 08:00
Buprenorphine [Subutex] 16 mg SL DAILY@0800
Abnormal Lab Results
06/05/25
20:34
RBC 2.65 L 10^6/uL
(4.70-6.10)
Hgb 5.3 L* g/dL
(13.0-18.0)
Hct 18.4 L* %
(39.0-52.0)
MCV 69.4 L fL
(80.0-94.0)
MCH 20.0 L pg
(27.0-31.0)
MCHC 28.8 L g/dL
(33.0-37.0)
RDW 23.4 H %
(11.5-14.5)
Plt Count 413 H 10^3/uL
(130-400)
Absolute Neuts (auto) 7.1 H 10^3/uL
(1.4-6.5)
Absolute Lymphs (auto) 0.9 L 10^3/uL
(1.2-3.4)
Neutrophils % 82.7 H %
(42.2-75.2)
Lymphocytes % 10.0 L %
(20.5-51.1)
ESR 135 H mm/hour
(0-20)
PT 18.6 H Sec
(11.4-14.6)
APTT 46.1 H Sec
(23.4-35.0)
Carbon Dioxide 20 L mmol/L
(22-30)
BUN 32 H mg/dl
(9-20)
Glucose 120 H mg/dl
(70-99)
Calcium 7.9 L mg/dl
(8.4-10.2)
Alkaline Phosphatase 398 H U/L
(38-126)
C-Reactive Protein 54.20 H mg/L
(0.0-10.00)
Albumin 3.0 L g/dl
(3.5-5.0)
Crossmatch IS Only See Detail
06/05/25 20:34
06/05/25 20:34
Vital Signs
Initial and Last Documented VS:
Initial Vital Signs
Temp Pulse Resp BP Pulse Ox
98.4 F 105 16 154/108 98
06/05/25 18:26 06/05/25 18:26 06/05/25 18:26 06/05/25 18:26 06/05/25 18:26
Last Documented Vital Signs
Temp Pulse Resp BP Pulse Ox
98.4 F 96 17 123/83 100
06/05/25 18:26 06/05/25 21:45 06/05/25 21:45 06/05/25 21:00 06/05/25 20:46
<Grady Solis PA-C - Last Filed: 06/05/25 22:06>
MDM/Problems Addressed
Differential Diagnosis Includes:
Osteomyelitis
Cellulitis
Abscess
PAD/PVD
Shooters abscess
MDM/Problems Addressed:
30-year-old male presenting to the ER for significant infection/wound to the left lower leg, concern for continued osteomyelitis of the right elbow given patient never received any further treatment for this despite recommendation for surgical care.
There is significant concern for profound infection. Last time patient was here he required blood products for profound anemia. I do anticipate prolonged admission and need for long-term IV antibiotics so we will attempt for midline placement.
Vancomycin and Zosyn ordered. X-ray imaging of the elbow and tib-fib region ordered. Plan to notify hospitalist team. I will also notified general surgery.
Chronic conditions affecting care: Other (IV drug abuse)
<Grady Solis PA-C - Last Filed: 06/05/25 22:06>
*Radiology
Radiology exam reviewed: preliminary read by ED provider (Continued osteomyelitis of the right elbow, osteomyelitis of the left tib-fib region as well)
*Pulse Oximetry
SaO2: 98
Oxygen Mode of Delivery: Room air
Patient hypoxic: no
*Critical Care Note
Total Time (30-74mins, 75-104mins- exclusive of procedures): 35
comment:
Critical care statement: A total of 35 minutes of critical care time was provided for this patient. This includes management of unstable vital signs, evaluation of the patient at bedside, reviewing the patient's pertinent medical records, discussion
with consultants, review of old EKGs and review of pertinent medical records. This time with separate from time utilized to perform the aforementioned documented procedures
<Grady Solis PA-C - Last Filed: 06/05/25 22:06>
Patient Management
Discussion with other providers: Hospitalist and Vault Clerk
Escalation/DeEscalation of care consider admission/obs:
Patient has osteomyelitis on both the right elbow and left lower leg. Antibiotics ordered. General surgery aware and will consult on the patient. Hospitalist team notified and accepts for continued evaluation and treatment.
ED Attending Note
<Grady Solis PA-C - Last Filed: 06/05/25 22:06>
-
Portions of this chart may have been created with voice recognition software.� Occasional wrong word or��sound alike� substitutions may have occurred due to the inherent limitations of voice recognition software.
<Tara Breen MD - Last Filed: 06/05/25 22:06>
ED Attending Note
Patient seen and examined by attending physician: Yes
I performed the substantive portion of visit, reviewed & personally made and approve the management plan that is documented in note by myself or RAJIV.: Yes
ED Attending Note:
Patient is awake, alert and conversational. Patient has soft tissue tenderness and swelling of right elbow. Patient has an exudative extensive wound of anterior left lower leg. Cap refill in bilateral feet.
Discharge Plan
Departure
Patient Disposition: Admit
Date of Disposition: 06/05/25
Time of Disposition: 20:35
Presentation/result/management discussed w/ accepting MD/DO: Hospitalist
Discharge Problem:
Acute osteomyelitis of left lower leg, Acute osteomyelitis of right elbow
Referrals:
NONE,* [Family Provider, Internal Medicine]
Interventions
Interventions:
*Risk Screen - Suicide Last Done: 06/05/25 18:33
*General Assessment Last Done: 06/05/25 18:34
*Neglect/Abuse Screening Last Done: 06/05/25 18:33
*ED- Fall Risk Assessment Last Done: 06/05/25 19:07
*ED COVID-19 Vaccine History Last Done: 06/05/25 19:07
*ED Influenza Vaccine History Last Done: 06/05/25 19:07
ED-Skin Assessment Last Done: 06/05/25 20:07
Discharge Date and Time
Print Language: PRYDEINIG
[2025-06-05] MEDS: ZOSYN 50 IV (20:41)
[2025-06-05 20:52] LABS: Hematocrit 18.4 % (39.0-52.0); Hemoglobin 5.3 g/dL (13.0-18.0); Mean Corp Hgb Conc. 28.8 g/dL (33.0-37.0); Mean Corpuscular Volume 69.4 fL (80.0-94.0); Platelet Count 413 10^3/uL (130-400); Red Cell Dist. Width 23.4 % (11.5-14.5)
[2025-06-05 21:02] LABS: ALT (SGPT) 15 U/L (0-50); AST (SGOT) 20 U/L (17-59); Albumin 3.0 g/dl (3.5-5.0); Alkaline Phosphatase 398 U/L (38-126); Blood Urea Nitrogen 32 mg/dl (9-20); Calcium 7.9 mg/dl (8.4-10.2); Carbon Dioxide 20 mmol/L (22-30); Chloride 107 mmol/L (98-107); Estimated Creatinine Clearance 66 ml/min; Glucose 120 mg/dl (70-99); INR 1.53; PT 18.6 Sec (11.4-14.6); Potassium 3.9 mmol/L (3.5-5.1); Sodium 136 mmol/L (135-145); Total Protein 7.1 g/dl (6.3-8.2); eGFR > 60.00
--- NOTE | 2025-06-05 21:02 | HPS.HSE ---
Family Physician
-
Family Physician: * NONE
Chief Complaint
-
fall right elbow pain, ivda wants detox and rehab
History of Present Illness
30-year-old male with history of chronic IV drug abuse, cellulitis of the right elbow and chronic wound to his left lower extremity from ivda fentanyl and tranq. he attempted to go to to his rehab facility but was refused admission due to treatment
for his wounds. He is reportedly still using IV drugs and injecting into the wounds in his leg with use this afternoon. He states agter he injects the wound bleeds. he is currenlty staying in a snf in [place].he was borught here by support
personel who have been following him for the last year. He had prior admission for septic with multiple organ failure was found of necrotizing cellulitis affecting wound in both lower extremities. He was also treated pneumonia required intubation
and pressure support. He required debridement of lower extremity wounds to his left leg in April 2023. He was recommended to have surgery on his right elbow but never followed up with treatment. He was also treated for anemia received 2 units
of blood transfusion and IV iron for iron deficiency. He has past medical history of IVDA necrtoizing infection/cellulitis left lower leg due to ivda, cellulitis left elbow active smoker
Medical History
Past Medical History
Past Medical History: Reports Other
Additional Past Medical History:
septic with multiple organ failure due to pna and necrotizing skin infection LLE from IVDA October 2024
chronic Right elbow osteomyelitis
cHronic Right elbow contracture
Blood loss anemia from LLE wound 2024
Iron def anemia
IVDA
Nicotine abuse/Vape use
HEP C
Cachexia
Past Surgical History: Reports Appendectomy and Other
Social History
Tobacco: Smoker (1/2 ppd )
Alcohol: None
Drug: IVDA (24 bags a day of fentany mixed with tranq from [facility])
Personal: Single
Living: Other (snf in [place])
Employment: Not Employed
Family History
Family History: Not pertinent
Allergies / Home Medications
Allergies reflects when Allergies were last updated in [facility].
Home Medications with original date entered in [facility]
Allergy/Medication List:
Allergies
Allergy/AdvReac Type Severity Reaction Status Date / Time
No Known Allergies Allergy Verified 11/17/24 08:16
Review of Systems
-
History Source: Patient and Other (friend with pt )
A 12 point ROS was completed and negative except as noted: Yes
Constitutional: Reports Other (chachetic); Denies Fever
EENT: Denies Sore Throat or Runny Nose
Respiratory: Denies Cough or Trouble Breathing
Cardiac: Denies Chest Pain, Diaphoresis, Palpitations or Syncope
Abdomen/GI: Denies Abdominal Pain, Nausea, Vomiting, Diarrhea, Constipated or Bloody Stools
: Denies Dysuria, Frequency, Flank Pain or Incontinence
Musculoskeletal: Reports Joint Pain, Joint Swelling (right elbow with swelling and chronic contracture ) and Other (entire LLE anterior santos open wound with multiple depth layers,80% yellow slough)
Skin: Denies Itching or Rash
Neurological: Denies Dizzy or Headache
Endocrine: Reports No Symptoms
Hematologic/Lymphatic: Reports No Symptoms
Psych: Reports Calm
Physical Exam
Vital Signs
Vital Signs
Temp Pulse Resp BP Pulse Ox
98.4 F 105 16 154/108 98
06/05/25 18:26 06/05/25 18:26 06/05/25 18:26 06/05/25 18:26 06/05/25 20:21
Physical Exam
General: Conversant, Pain and Cachectic; No Fever or Chills
HEENT: NormoCephalic, Anicteric, PERRLA, [place] Conjunctivae and No Ptosis
Respiratory: Clear; No Wheezes, Rales or Rhonchi
Cardiac: S1/S2 and Regular Rhythm; No Murmur, Rub, Gallop or Peripheral Edema
Breast: Deferred by me
GI: Soft, Non Tender, Non Distended and Normal Bowel Sounds
Rectal: Deferred by Provider
Genito-urinary: Deferred by me
Musculoskeletal: No Clubbing, No Cyanosis, Edema, Right Upper Extremity (right elbow swelling and chronic contracture) and Edema, Left Lower Extremity (entire LLE anterior santos open wound with multiple depth layers,80% yellow slough); No Edema, Left
Upper Extremity or Edema, Right Lower Extremity
Skin: Warm and Other (entire LLE anterior santos open wound with multiple depth layers,80% yellow slough)
Neuro: AO x 3, No Motor Deficits, Nonfocal/grossly intact, Cranial Nerves Intact and No Sensory Deficits; No Slurred Speech, Facial Droop, Tremors or Sedated
Psych: Calm
Laboratory Results
-
06/05/25 20:34
Laboratory Results
Lactic Acid 1.8 mmol/L (0.7-2.0) 06/05/25 20:34
Data Reviewed
-
Diagnostic Radiology: Report Reviewed by me
Lab Data: Labs Reviewed by me
Impression/Plan
-
Impression/plan:
Admit to TELE
#Anemia likely blood loss from wounds�microcytic
#History of blood loss anemia lower extremities October 2022
History iron deficiency anemia- requiring 2 units PRBC, IV iron
- Hgb 5.3, MCV 69.4
-type and screen
-Blood consent obtained in ER
-Transfuse 2 units PRBC
-Check iron panel
#FX right elbow secondary recent fall with OSTEO
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
#History of osteomyelitis of the right elbow joint (chronic)
Was advised in October needed follow-up but did not obtain
- Consult ish fowler
-- Follow ESR, blood cultures x 2
xray right elbow:Redemonstration of changes related to chronic osteomyelitis with extensive deformity and fragmentation of the proximal ulna and radius with chronic subluxation of the elbow joint
articulations. progressed from prior. A component of superimposed acute osteomyelitis is difficult to exclude radiographically. No obvious acute erosive component.
Moderate soft tissue swelling about the elbow redemonstrated. No definite joint effusion.
#Left lower extremity entire anterior santos open wound with OSTEO from IVDA
History of debridement October 2024 due to necrotizing soft tissue infection
Patient has been injecting fentanyl/Tranq his wound approximately 12 times a day total used 24 bags daily
- Consult surgery will require debridement
- IV Zosyn IV vancomycin
COnsult ID
Tib fib xray LLE: Extensive chronic appearing cortical thickening/sclerosis and periosteal reaction along the tibia and fibula diaphyses, likely reflecting chronic osteomyelitis.
Soft tissue irregularity noted along the anterior lower leg.
No acute fractures or dislocation. Partially visualized regional joints are grossly unremarkable.
#Polysubstance abuse IVDA
(History of UDS positive for fentanyl, cocaine, and marijuana october 2024)
Patient has been injecting fentanyl/Tranq his wound approximately 12 times a day total used 24 bags daily
Last use today 06/05/2025
-start OPIATE withdrawal protocol
#ACute Diarrhea likely withdrawal
check stool wbc , culture cdiff
#Hx Septic Shock 2/2 pneumonia October 2024
#Hx Respiratory failure Brett to pneumonia October 2024
-Required intubation and pressors
#Anxiety/depression
no eported meds
#Active smoker/Vaping
Half a pack a day
Nicotine patch 14 mg
#Hepatitis C diagnosed 3 years ago
- Sought treatment
#HX of cachexia due to drug use�BMI 18.8 kg
DIetary cpnsult
DVT Prophylaxis:scd right leg
Code Status: Full Code
[2025-06-05 21:03] LABS: APTT 46.1 Sec (23.4-35.0)
[2025-06-05] MEDS: VANCOCIN 530 MG IV (21:04)
[2025-06-05 21:05] LABS: C-Reactive Protein 54.20 mg/L (0.0-10.00)
[2025-06-05 21:09] LABS: Nucleated Red Blood Cells % 0 % (-)
[2025-06-05 21:12] LABS: Microcytosis 4+
[2025-06-05 21:13] LABS: Hypochromasia 3+; Ovalocytes 1+; Polychromasia Slight
[2025-06-05 21:29] LABS: Normal RBC Morphology No
--- NOTE | 2025-06-05 21:46 | W.PN.UPDATE ---
Update Note
Progress Note Update
Patient seen in conjunction with RHONDA. I agree with the findings nausea physical. I concur with assessment and plan listed otherwise.
Briefly, this is a 30-year-old male who has past medical history significant for heavy drug use including fentanyl and drank, history of right elbow osteomyelitis and right proximal ulna fracture a left lower extremity abscess, recent admission on
earlier this year for multifactorial sepsis with multi organ failure source includes skin as well as pneumonia 1 now presents to the emergency department ostensibly for treatment of fentanyl dependence.
He endorsed ongoing ingestion of drugs into the wound in his left lower extremity. He also endorsed 2 days of frequent loose diarrhea
On arrival in the emergency department he was hypertensive to 150/108, afebrile at 98.4, pulse of 105 and satting 98% on room air. His CBC shows a hemoglobin of 5.3 INR was 1.5. Electrolytes BUN and creatinine are fairly stable.
Elbow x-ray with additional fractures as described below and stemming from a recent fall.
Redemonstration of changes related to chronic osteomyelitis with extensive deformity and fragmentation of the proximal ulna and radius with chronic subluxation of the elbow joint articulations, progressed from prior. A component of superimposed
acute osteomyelitis is difficult to exclude radiographically. No obvious acute erosive component. Moderate soft tissue swelling about the elbow redemonstrated. No definite joint effusion.
Tib/Fib Xray
Extensive chronic appearing cortical thickening/sclerosis and periosteal reaction along the tibia and fibula diaphyses, likely reflecting chronic osteomyelitis. Soft tissue irregularity noted along the anterior lower leg.
No acute fractures or dislocation. Partially visualized regional joints are grossly unremarkable.
Last use of fentanyl was this afternoon.
Assessment and plan
30-year-old male with history of IV drug use coming in ostensibly for treatment of his IV drug use. Is found to have likely wound infection in his lower extremity without an obvious abscess. He also has additional fracture and soft tissue edema in
his right elbow. Unlikely bursitis and I do not think patient needs joint drainage. He is not septic at this time. Hyaley withdrawal symptoms with diarrhea likely.
Wound infections and elbow injury. Chronic right elbow osteomyelitis.
- Admit to telemetry for now
- Blood culture
- IV Vanco and Zosyn for now
- ID consultation
- General Surgery consultation
- Immobilize right elbow, orthopedic consultation
Anemia -blood loss anemia likely secondary to chronic wound with ongoing injection
- Iron panel
- Transfusing 2 units packed red blood cells for now
IV drug use -requesting treatment. Use of fentanyl and chronic
- Start microdosing protocol for patient, need with opioid use withdrawal symptoms and with medical condition
- adjunctive clonidine
- Telemetry monitoring for now as patient is in only mild withdrawal
- UDS
- Psychiatry consult for inpatient rehab
Diarrhea - Likely withdrawal
- stool culture and studies
PT consult
Case management
DVT prophylaxis�SCD
[2025-06-05 22:52] LABS: Iron 21 ug/dl (49-181)
[2025-06-05 23:01] LABS: Total Iron Binding Capacity 226 ug/dl (261-462)
[2025-06-05] MEDS: ZOFRAN 4 MG IV (23:34)
[2025-06-05 23:47] LABS: Ferritin 117.0 ng/ml (17.9-464.0)
[2025-06-06] VITALS (16 sets, daily range): BP systolic 134–209; BP diastolic 79–140; BMI 18.2; BMI 17.6
[2025-06-06 00:18] LABS: Folate 6.5 ng/ml (2.76-20); Vitamin B12 369 pg/ml (239-931)
[2025-06-06] MEDS: BELBUCA 300 MCG BUCCAL ×2 (00:42→03:26)
[2025-06-06] MEDS: OXYCONTIN (CONTROLLED RELEASE) 40 MG PO ×3 (00:42→17:03)
[2025-06-06] MEDS: ZOSYN 50 IV ×2 (02:46→10:46)
[2025-06-06] MEDS: TYLENOL 1000 MG PO ×3 (02:46→17:03)
--- NOTE | 2025-06-06 08:26 | PTCARENOTE ---
Patient refused to retake blood pressure. Patient stated that the blood pressure cuff 'burned' his elbow.
[2025-06-06 08:55] LABS: Hematocrit 28.2 % (39.0-52.0); Hemoglobin 9.0 g/dL (13.0-18.0); Mean Corp Hgb Conc. 31.9 g/dL (33.0-37.0); Mean Corpuscular Volume 69.5 fL (80.0-94.0); Nucleated Red Blood Cells % 0 % (-); Platelet Count 526 10^3/uL (130-400); Red Cell Dist. Width 24.7 % (11.5-14.5)
--- NOTE | 2025-06-06 08:59 | W.PN.HOSP.TC ---
Today's Communication/Plan
-
Transfer to IMU for closer monitoring
cont opiate withdrawal protocol
start clonidine with holding parameters
Labetalol prn
NPO after midnight for bone biopsy, hold abx as per ID
Assessment / Plan
Assessment / Plan
Physical Exam
General: appears to be in moderate distress tremulous
HEENT: NormoCephalic, Anicteric, Dilated pupils, missing teeth
Respiratory: Clear; No Wheezes, Rales or Rhonchi
Cardiac: S1/S2 and Regular Rhythm; No Murmur, Rub, Gallop or Peripheral Edema
GI: Soft, Non Tender, Non Distended and Normal Bowel Sounds
Musculoskeletal: right elbow swelling and chronic contracture, Lower ext b/l dressing clean dry intact
Neuro: Nonverbal, communicating with head gestures if communicating at all, follows simple commands, tremulous
Psych: appears relatively Calm
30M Tobacco chronic IVDA (Fentanyl Tranq), right elbow chronic osteomyelitis, LLE chronic wound w underlying chronic osteomyelitis. Attempted to go to to his rehab facility but was refused admission due to treatment for his wounds. He is
reportedly still using IV drugs and injecting into the wounds in his leg. Currently staying in a intermediate in [place].he was brought here by support personnel who have been following him for the last year. He had prior admission for sepsis with
multiple organ failure, necrotizing cellulitis affecting wounds lower extremities b/l. He was also treated for pneumonia required intubation and pressure support. He required debridement of lower extremity wounds to his left leg in April 2023.
He was recommended to have surgery on his right elbow but never followed up with treatment. He was also treated for anemia received 2 units of blood transfusion and IV iron for iron deficiency. He
#Anemia likely blood loss from wounds and Anemia of Chronic disease
-Hgb 5.3 responded well to 2PRBC transfusion
-Iron study reviewed
#FX right elbow secondary recent fall with OSTEO
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
#History of osteomyelitis of the right elbow joint (chronic)
Was advised in October needed follow-up but did not obtain
- Consult Orthopedic Appreciated no surgical intervention recommended at this time. May require above elbow amputation if continues to worsen despite abx
- ESR 135, blood cultures x 2 NGTD
- xray right elbow:Redemonstrate changes related to chronic osteomyelitis with extensive deformity and fragmentation of the proximal ulna and radius with chronic subluxation of the elbow joint articulations. progressed from prior. A component of
superimposed acute osteomyelitis is difficult to exclude radiographically. No obvious acute erosive component. Moderate soft tissue swelling about the elbow redemonstrated. No definite joint effusion.
#Left lower extremity entire anterior santos open wound with OSTEO from IVDA
#History of debridement October 2024 due to necrotizing soft tissue infection
- Consult surgery appreciated wound infection not amenable to debridement, risk of limb loss
- empirically treated with IV Zosyn IV vancomycin
- Consult ID appreciated abx on hold pending IR bone bx tomorrow 06/07/25 npo after midnight
- Tib fib xray LLE: Extensive chronic appearing cortical thickening/sclerosis and periosteal reaction along the tibia and fibula diaphyses, likely reflecting chronic osteomyelitis. Soft tissue irregularity noted along the anterior lower leg. No
acute fractures or dislocation. Partially visualized regional joints are grossly unremarkable.
#Polysubstance abuse IVDA
#Anxiety/depression
#Hypertensive urgency likely 2/2 opiate withdrawal
History UDS positive for fentanyl, cocaine, and marijuana october 2024
Patient has been injecting fentanyl/Tranq in his wound approximately 12 times a day total used 24 bags daily
Last use 06/05/2025
Opiate withdrawal protocol Oxycontin Belbuca Subutex taper PRN oxycodone, tizanidine, subutex
Clonidine 0.1 mg BID w/ holding parameters
Labetalol prn SBP>180 or DBP>100
transferred to IMU for closer monitoring 06/06
Diarrhea likely withdrawal since resolved
#Active smoker/Vaping
Half a pack a day
Nicotine patch 14 mg
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
Dietary consult
DVT Prophylaxis:scd right leg
Code Status: Full Code
Discussed with patient and patient's POA mother Adriana
I spent a total of 55 minutes with the patient or on the floor. More than 50% of this time involved counseling and coordination of care.
Anticipated Discharge: > 48 hours
Subjective/Interval History
-
Date of Service: June 06, 2025
Severe opiate withdrawal, intermittently refusing meds, largely nonverbal, communicates via head gestures if communicates at all, following simple commands. Hypertensive Urgency likely 2/2 to opiate withdrawal. Transferring to IMU for closer
monitoring.
Objective Data
-
Labs:
Laboratory Results
06/05/25 06/06/25
20:34 08:25
WBC 11.3 H
Hgb 9.0 L D
Hct 28.2 L
Plt Count 526 H D
PT 18.6 H
INR 1.53
APTT 46.1 H
Sodium 136 Pending
Potassium 3.9 Pending
Chloride 107 Pending
Carbon Dioxide 20 L Pending
BUN 32 H Pending
Creatinine 1.3 Pending
Glucose 120 H Pending
Calcium 7.9 L Pending
Total Bilirubin 0.5 Pending
AST 20 Pending
ALT 15 Pending
Alkaline Phosphatase 398 H Pending
Vital Signs:
Vital Signs
Temp Pulse Resp BP Pulse Ox
98.6 F 83 16 158/114 100
06/06/25 07:40 06/06/25 07:40 06/06/25 07:40 06/06/25 07:40 06/06/25 07:40
I&O
06/05/25 06/06/25 06/07/25
06:59 06:59 06:59
Intake Total 500 / 500
Output Total 300 / 300
Balance 200 / 200
--- NOTE | 2025-06-06 09:13 | PHA.VAN.IN ---
Assessment
- Assessment
Renal Function: Unknown baseline
Plan
- Plan
Initial / Loading Dose: 1500mg - 06/05 21:04
Maintenance Regimen: dosing by level - 1000mg x1 today
Monitoring: random 06/07 06
Pharmacokinetics Vancomycin I
- -
Patient Age: 30
Patient Sex: Male
Vancomycin Day #: 1
Indication: Skin And Soft Tissue
Requesting Provider: Juliana Cruz
Pertinent Antimicrobial Allergies:
NKDA
Height / Weight:
Height 5 ft 8 in
Actual Weight 54.176 kg
IBW in k.4
Pertinent Past Medical History: BMI ~18, IV TALA
- Vital Signs / Lab Results
Temp Pulse Resp BP Pulse Ox
98.6 F 83 16 158/114 100
06/06/25 07:40 06/06/25 07:40 06/06/25 07:40 06/06/25 07:40 06/06/25 07:40
Lab Results - Hematology
06/05/25 06/06/25
20:34 08:25
WBC 8.6 11.3 H
Lab Results - Chemistry
06/05/25
20:34
BUN 32 H
Creatinine 1.3
Estimated Creat Clear 66
Albumin 3.0 L
06/05/25
20:34
Lactic Acid 1.8
[2025-06-06 09:25] LABS: ALT (SGPT) 15 U/L (0-50); AST (SGOT) 20 U/L (17-59); Albumin 3.1 g/dl (3.5-5.0); Alkaline Phosphatase 452 U/L (38-126); Blood Urea Nitrogen 25 mg/dl (9-20); Calcium 8.3 mg/dl (8.4-10.2); Carbon Dioxide 19 mmol/L (22-30); Chloride 109 mmol/L (98-107); Estimated Creatinine Clearance 69 ml/min; Glucose 118 mg/dl (70-99); Magnesium 1.4 mg/dl (1.6-2.3); Potassium 3.7 mmol/L (3.5-5.1); Sodium 140 mmol/L (135-145); Total Protein 7.3 g/dl (6.3-8.2); eGFR > 60.00
--- NOTE | 2025-06-06 09:26 | CON.ID ---
Consultation
-
Date/Time Consultation Requested: 06/05/25 22:13
Date/Time Consultation Performed: 06/06/25 9:26
Requesting Provider: Anthony BROOKS
Performing Provider: Dr Boland
Reason for Consultation: LLE open wound ivda into wound, osteo right elbow
Chief Complaint / Past History
Chief Complaint
right elbow pain, lower extremity wound
History of Present Illness
Mr Guerrero is a 30 year old male with history of chronic IV drug abuse including fentanyl/tranq who presents for cellulitics of the right elbow and a chronic wound over the left lower extremity. He admits to using IV drugs and injecting into the
wound with last injection done on the day of admission. He was previously recommended to have surgery on the right elbow but did not follow up with treatment. He has a history of requiring debridement of the left lower leg wound.
Since arrival here he has been afebrile, bp stable to hypertensive,
Xray of the tib-fibula - extensive chronic cortical thickening/sclerosis and periosteal reaction; elbow xray: redemonstration of chronic osteomyelitis with deformity and fragmentation of the proximal ulna and radius - progressed.
Past History
Additional Past Medical History:
septic with multiple organ failure due to pna and necrotizing skin infection LLE from IVDA October 2024
chronic Right elbow osteomyelitis
cHronic Right elbow contracture
Blood loss anemia from LLE wound 2024
Iron def anemia
IVDA
Nicotine abuse/Vape use
HEP C
Cachexia
Additional Past Surgical History:
Appendectomy
Allergy History:
No Known Allergies Allergy (Verified 11/17/24 08:16)
Medications Reviewed: Yes
Social History
Tobacco: Smoker (1/2 ppd)
Alcohol: None
Drug: IVDA (24 bags a day of fentany mixed with tranq from [facility])
Family History
Family History: Not Pertinent
Review of Systems
Review of Systems
Constitutional: Reports Other (chachetic); Denies Fever
EENT: Denies Sore Throat or Runny Nose
Respiratory: Denies Cough or Trouble Breathing
Cardiac: Denies Chest Pain, Diaphoresis, Palpitations or Syncope
Abdomen/GI: Denies Abdominal Pain, Nausea, Vomiting, Diarrhea, Constipated or Bloody Stools
: Denies Dysuria, Frequency, Flank Pain or Incontinence
Musculoskeletal: Reports Joint Pain, Joint Swelling (right elbow with swelling and chronic contracture ) and Other (entire LLE anterior santos open wound with multiple depth layers,80% yellow slough)
Skin: Denies Itching or Rash
Neurological: Denies Dizzy or Headache
Endocrine: Reports No Symptoms
Hematologic/Lymphatic: Reports No Symptoms
Psych: Reports Calm
Vital Signs
Temp Pulse Resp BP Pulse Ox
98.6 F 83 16 158/114 100
06/06/25 07:40 06/06/25 07:40 06/06/25 07:40 06/06/25 07:40 06/06/25 07:40
Physical Exam
Physical Exam
Constitutional: No Acute Distress
Cardiovascular: Regular Rate and S1/S2; Negative Murmur or Rub
Pulmonary: Clear and Symmetric; Negative Wheezes, Rales or Rhonchi
Gastrointestinal: Soft, Non Tender, Non Distended and Normal Bowel Sounds
Extremities: Other (deformity of the right elbow without sinus tract; L santos with granulation tissue and slough in the wound, no active eschar, no definitive probe to bone)
Skin: Warm and Dry; Negative Rash or Jaundice
Lab / Diagnostic Study Results
06/06/25 08:25
06/06/25 08:25
Abs Immat Gran (auto) 0.1 10^3/uL (0-0.05) H 06/06/25 08:25
Absolute Neuts (auto) 10.0 10^3/uL (1.4-6.5) H 06/06/25 08:25
Absolute Lymphs (auto) 0.7 10^3/uL (1.2-3.4) L 06/06/25 08:25
Absolute Monos (auto) 0.5 10^3/uL (0.1-0.6) 06/06/25 08:25
Absolute Basos (auto) 0.0 10^3/uL (0-0.2) 06/06/25 08:25
Immature Gran % 0.7 % (0-0.5) H 06/06/25 08:25
Neutrophils % 88.8 % (42.2-75.2) H 06/06/25 08:25
Lymphocytes % 6.1 % (20.5-51.1) L 06/06/25 08:25
Monocytes % 4.0 % (1.7-9.3) 06/06/25 08:25
Eosinophils % 0.1 % (0-6) 06/06/25 08:25
Basophils % 0.3 % (0-2) 06/06/25 08:25
ESR 135 mm/hour (0-20) H 06/05/25 20:34
PT 18.6 Sec (11.4-14.6) H 06/05/25 20:34
INR 1.53 06/05/25 20:34
Lactic Acid 1.8 mmol/L (0.7-2.0) 06/05/25 20:34
C-Reactive Protein 54.20 mg/L (0.0-10.00) H 06/05/25 20:34
Microbiology Results
Micro:
06/05/25 21:15 Blood Culture - Pending
Blood/Venous
06/05/25 20:34 Blood Culture - Pending
Blood/Venous
Assessment / Plan
Right Elbow Chronic Osteomyelitis
- attempt bone biopsy for culture with IR
- joint is already destroyed, antibiotics will not restore function
- hold antibiotics pending bone biopsy
- risk of outpatient IV antibiotics includes missuse of the line and is unacceptably high, can attempt to find a high bioavailability oral combination
- patient remains at high risk of limb loss
Left Lower Extremity Wound with underlying chronic osteomyelitis
- attempt bone biopsy for culture with IR
- has a midline
- hold antibiotics pending bone biopsy
- risk of outpatient IV antibiotics includes missuse of the line and is unacceptably high, can attempt to find a high bioavailability oral combination
- risk of limb loss is high particularly if unable to heal the wound.
--- NOTE | 2025-06-06 09:30 | CON.ORTHO ---
Consultation
-
Date/Time Consultation Requested: 06/06/2025; time unknown
Date/Time Consultation Performed: 06/06/2025; 0730
Requesting Provider: unknown
Performing Provider: Esperanza Rowell PA-C for Dr. Juan M Galeana
Reason for Consultation: Right elbow osteomyelitis
Consultation - Orthopedics
History
Mr. Guerrero is a 30 year old male with PMH of chronic IVDA with cellulitis and chronic osteomyelitis of his right elbow, a chronic wound to his LLE from fentanyl and tranq use. He did have a recent admission in October 2024 for septic multi organ
failure due to pneumonia and necrotizing skin infection. He also has a history of hepatitis C. He attempted to present to a rehab facility yesterday, but was told he needed to be treated for his wound prior to admission to the facility which
prompted him to present to ED. It was requested that orthopedics see him today for his right elbow. He endorses chronic pain in the elbow, and limited mobility. He reports that he no longer injects in the elbow.
Allergies / Home Medications
Allergy/AdvReac Type Severity Reaction Status Date / Time
No Known Allergies Allergy Verified 11/17/24 08:16
Vital Signs / Lab Results
Temp Pulse Resp BP Pulse Ox
98.6 F 83 16 158/114 100
06/06/25 07:40 06/06/25 07:40 06/06/25 07:40 06/06/25 07:40 06/06/25 07:40
06/06/25 08:25
06/06/25 08:25
XR Right Elbow IMPRESSION:
Redemonstration of changes related to chronic osteomyelitis with extensive deformity and fragmentation of the proximal ulna and radius with chronic subluxation of the elbow joint articulations, progressed from prior. A component of superimposed
acute osteomyelitis is difficult to exclude radiographically. No obvious acute erosive component. Moderate soft tissue swelling about the elbow redemonstrated. No definite joint effusion.
Directed exam of the right upper extremity reveals muscular wasting of the RUE. Deformity about the right elbow. He is tender to palpation generally about the right elbow. He is reticent to move the joint himself and passive motion is limited and
does elicit pain. Maintained ROM of wrist and hand. NVID.
Assessment / Plan
Right elbow chronic osteomyelitis
--Lokesh' x-rays were reviewed with him today which do show complete, progressed destruction of the elbow joint. There are no open wounds or lesions about the elbow, and I do not appreciate any significant intraarticular effusion on exam today. I
have discussed his case with Dr. Galeana, and at this point there is nothing to be done surgically for the elbow. We would not place any hardware in the setting of chronic osteomyelitis. Instead, we would recommend he rehab from his chronic IV drug
and polysubstance abuse, and continue with treatment of IV antibiotics. Infectious disease consult would likely benefit patient for continued management moving forward. We also discussed that should his elbow continue to worsen and fail to be
controlled with IV antibiotics, he may require an above the elbow amputation in the future. He verbalized understanding. Orthopedics will sign off for now. Please reengage with any additional orthopedic questions or concnerns.
[2025-06-06] MEDS: BELBUCA BUCCAL ×5 (10:44→20:08)
--- NOTE | 2025-06-06 12:57 | CON.GS ---
Consultation
-
Date/Time Consultation Performed: 06/06/25
Requesting Provider: Kody
Performing Provider: Babs
Reason for Consultation: LLE wound
Medical History
-
Chief Complaint: LLE wound
History of Present Illness:
30M recently admitted for necrotic skin / soft tissue infection of LLE 2/2 IVDA and underwent debridement of the skin at that time. He returns to ED after presenting to a rehab facility. In the interim he has continues to inject into the wound. He
was informed by rehab that he needed wound treatment prior to being admitted to rehab. He is ambulatory at baseline. He is minimally participatory in the encounter. History obtained mainly from chart.
Past Medical History
Past Medical History: Other (septic with multiple organ failure due to pna and necrotizing skin infection LLE from IVDA October 2024 chronic Right elbow osteomyelitis cHronic Right elbow contracture Blood loss anemia from LLE wound 2024 Iron
def anemia IVDA Nicotine abuse/Vape use HEP C Cachexia)
Past Surgical History: Appendectomy
Social History
Tobacco: Smoker
Alcohol: None
Drug: IVDA
Living: Homeless
Family History
Family History: Reviewed & Noncontributory
Allergies / Home Medications
Allergy/AdvReac Type Severity Reaction Status Date / Time
No Known Allergies Allergy Verified 11/17/24 08:16
Review of Systems
-
A 10 point review of systems was completed, and was negative except as per HPI.
Physical Exam
Vital Signs
Temp Pulse Resp BP Pulse Ox
98.1 F 65 16 209/109 100
06/06/25 11:55 06/06/25 11:55 06/06/25 11:55 06/06/25 11:55 06/06/25 11:55
06/05/25 06/06/25 06/07/25
06:59 06:59 06:59
Actual Weight 54.176 kg
Body Mass Index (BMI) 18.2
Lab Results
06/06/25 08:25
06/06/25 08:25
WBC 11.3 10^3/uL (4.8-10.8) H 06/06/25 08:25
Hgb 9.0 g/dL (13.0-18.0) L D 06/06/25 08:25
Hct 28.2 % (39.0-52.0) L 06/06/25 08:25
Plt Count 526 10^3/uL (130-400) H D 06/06/25 08:25
Abs Immat Gran (auto) 0.1 10^3/uL (0-0.05) H 06/06/25 08:25
Neutrophils % 88.8 % (42.2-75.2) H 06/06/25 08:25
Physical Exam
General: No Apparent Distress and Other (cachectic)
Skin: Other (RLE 2x4cm area of denuded skin to medial aspect of calf without fluctuance or purulence; LLE with extensive skin loss, slough/fibrinous exudate and pus)
Neuro: AO x 3
Psych: Calm
Data Reviewed
-
Labs: Labs Reviewed by me
Old Records: Reviewed
Assessment / Plan
-
30M with chronic LLE soft tissue infection 2/2 IVDA
Low grade fever, tachycardia, HTN
WBC 11.3
Hb 5.3 --> 9.0 after 2u PRBC
Na 140
Glu 118
Cr 1.2
Chronic wound infection not amenable to surgical debridement. There is significant risk of limb loss. This was discussed with patient and mother by phone.
Recommend IV abx, local wound care
When infection clears, wound care center for unna boot may be a good option
No plans for surgical intervention at this time.
Pls call with ?s
[2025-06-06] MEDS: MAGNESIUM SULFATE 100 IV (13:09)
[2025-06-06] MEDS: CATAPRES PO (13:18)
--- NOTE | 2025-06-06 15:58 | CM ---
Patient seen bedside, initial assessment completed. Patient is a 30-year-old male with history of chronic IV drug abuse, cellulitis of the right elbow and chronic wound to his left lower extremity from ivda fentanyl and tranq. Patient attempted to
go to to his rehab facility but was refused admission due to treatment for his wounds. Patient w/ left lower extremity wound with underlying chronic osteomyelitis.
Patient's presentation is very flat, patient answered questions w/ head nods, non verbal responses. Patient observed w/ some shaking behavior. Per nurse, patient wants to go to inpatient rehab. Patient is refusing narcotics for withdrawal symptoms.
Per chart, patient currently resides in a [facility] in [facility]. Patient is independent in all areas. No DME. Spoke w/ patient's mother, Adriana, who stated that patient is only allowed to come to her home to eat and shower but is
not allowed to be there without her present. Adriana does not want patient living w/ her. Patient discharged from [facility] in November 2024 w/ plan to admit to [facility], per Adriana, patient did not go. Patient has hx at [facility] as
well. Adriana is hopeful that patient can admit to rehab at d/c.
Plan: [facility] consult for [facility]&A rehab placement
[2025-06-06] MEDS: CATAPRES 0.1 MG PO ×2 (17:07→20:08)
--- NOTE | 2025-06-06 17:19 | W.PN.UPDATE ---
Update Note
Progress Note Update
Severe opiate withdrawal, intermittently refusing meds, largely nonverbal, communicates via head gestures if communicates at all, following simple commands. Hypertensive Urgency likely 2/2 to opiate withdrawal. Transferring to IMU for closer
monitoring.
Patient's Mother Adriana updated.
[2025-06-06] MEDS: ROXICODONE 20 MG PO (21:03)
[2025-06-06] MEDS: ZOFRAN 4 MG IV (21:04)
[2025-06-06] MEDS: TRANDATE 10 MG IV (22:05)
[2025-06-07] VITALS (38 sets, daily range): BP systolic 72–215; BP diastolic 89–134; BMI 17.5
[2025-06-07] MEDS: TYLENOL 1000 MG PO ×3 (00:42→15:08)
[2025-06-07] MEDS: OXYCONTIN (CONTROLLED RELEASE) 40 MG PO ×3 (00:42→15:08)
[2025-06-07] MEDS: ZANAFLEX 2 MG PO (00:50)
[2025-06-07] MEDS: TRANDATE 10 MG IV ×4 (03:10→22:19)
[2025-06-07 04:40] LABS: Hematocrit 28.3 % (39.0-52.0); Hemoglobin 8.9 g/dL (13.0-18.0); Mean Corp Hgb Conc. 31.4 g/dL (33.0-37.0); Mean Corpuscular Volume 69.4 fL (80.0-94.0); Nucleated Red Blood Cells % 0 % (-); Platelet Count 590 10^3/uL (130-400); Red Cell Dist. Width 24.3 % (11.5-14.5)
[2025-06-07 04:49] LABS: ALT (SGPT) 16 U/L (0-50); AST (SGOT) 21 U/L (17-59); Albumin 3.0 g/dl (3.5-5.0); Alkaline Phosphatase 449 U/L (38-126); Blood Urea Nitrogen 20 mg/dl (9-20); Calcium 8.4 mg/dl (8.4-10.2); Carbon Dioxide 20 mmol/L (22-30); Chloride 110 mmol/L (98-107); Estimated Creatinine Clearance 73 ml/min; Glucose 83 mg/dl (70-99); Magnesium 2.4 mg/dl (1.6-2.3); Potassium 4.5 mmol/L (3.5-5.1); Sodium 139 mmol/L (135-145); Total Protein 7.3 g/dl (6.3-8.2); eGFR > 60.00
--- NOTE | 2025-06-07 07:34 | PTCARENOTE ---
Received verbal report from SALTY Wray. On arrival to the floor patient is ox3. Flat, withdrawn, and refuses to speak occasionally. Nods head appropriately. COWS 14 and patient refuses Subutex. Patient c/o 06/01 throughout his whole body, especially
his legs and arms and pain medication administered at that time (see MAR). Sinus arrhythmia on the monitor with PVCs, hr 60-90s. PRN IV Labetalol administered for high blood pressure. RHONDA Guerin notified that additional medication was needed to
bring down his blood pressure and Labetalol changed from q6 hours to q4. COWS monitored throughout the night and patient continued to refuse Subutex. Patient is currently resting in bed with bed alarm on.
[2025-06-07] MEDS: CATAPRES 0.1 MG PO ×2 (07:35→15:09)
--- NOTE | 2025-06-07 08:03 | W.PN.HOSP.TC ---
Today's Communication/Plan
-
opiate withdrawal protocol
Clonidine increased, patch added to help with compliance
Blood pressure control
empiric abx as per ID
wound care
Assessment / Plan
Assessment / Plan
Physical Exam
General: appears to be in moderate distress tremulous
HEENT: NormoCephalic, Anicteric, Dilated pupils, missing teeth
Respiratory: Clear; No Wheezes, Rales or Rhonchi
Cardiac: S1/S2 and Regular Rhythm; No Murmur, Rub, Gallop or Peripheral Edema
GI: Soft, Non Tender, Non Distended and Normal Bowel Sounds
Musculoskeletal: right elbow swelling and chronic contracture, Lower ext b/l dressing clean dry intact
Neuro: Nonverbal, communicating with head gestures if communicating at all, follows simple commands, tremulous
Psych: appears relatively Calm
30M Tobacco chronic IVDA (Fentanyl Tranq), right elbow chronic osteomyelitis, LLE chronic wound w underlying chronic osteomyelitis. Attempted to go to to his rehab facility but was refused admission due to treatment for his wounds. He is
reportedly still using IV drugs and injecting into the wounds in his leg. Currently staying in a group home in [place].he was brought here by support personnel who have been following him for the last year. He had prior admission for sepsis with
multiple organ failure, necrotizing cellulitis affecting wounds lower extremities b/l. He was also treated for pneumonia required intubation and pressure support. He required debridement of lower extremity wounds to his left leg in April 2023.
He was recommended to have surgery on his right elbow but never followed up with treatment. He was also treated for anemia received 2 units of blood transfusion and IV iron for iron deficiency. He
#Anemia likely blood loss from wounds (possible acute blood loss vs chronic blood loss) and Anemia of Chronic disease
-Hgb 5.3 responded well to 2PRBC transfusion
-Iron study reviewed
-Monitor H&H, stable at this time since transfusions as above
#FX right elbow secondary recent fall with OSTEO
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
#History of osteomyelitis of the right elbow joint (chronic)
Was advised in October needed follow-up but did not obtain
- ESR 135, blood cultures x 2 NGTD
- xray right elbow:Redemonstrate changes related to chronic osteomyelitis with extensive deformity and fragmentation of the proximal ulna and radius with chronic subluxation of the elbow joint articulations. progressed from prior. A component of
superimposed acute osteomyelitis is difficult to exclude radiographically. No obvious acute erosive component. Moderate soft tissue swelling about the elbow redemonstrated. No definite joint effusion.
- Consult Orthopedic Appreciated no surgical intervention recommended at this time. May require above elbow amputation if continues to worsen despite abx
#Left lower extremity entire anterior santos open wound with OSTEO from IVDA
#History of debridement October 2024 due to necrotizing soft tissue infection
- Tib fib xray LLE: Extensive chronic appearing cortical thickening/sclerosis and periosteal reaction along the tibia and fibula diaphyses, likely reflecting chronic osteomyelitis. Soft tissue irregularity noted along the anterior lower leg. No
acute fractures or dislocation. Partially visualized regional joints are grossly unremarkable.
- Consult surgery appreciated wound infection not amenable to debridement, risk of limb loss
- empirically treated with IV Zosyn IV vancomycin
- Consult ID appreciated abx held for IR bone bx 06/07/25, empiric Cipro Augmentin started after bx, risk of outpatient IV antibiotics unacceptably high
- follow bone bx cx's
- IR eval appreciated
- Wound care eval appreciated
#Polysubstance abuse IVDA
#Anxiety/depression
#Hypertensive urgency likely 2/2 opiate withdrawal
History UDS positive for fentanyl, cocaine, and marijuana october 2024
Patient has been injecting fentanyl/Tranq in his wound approximately 12 times a day total used 24 bags daily
Last use 06/05/2025
transferred to IMU for closer monitoring 06/06
Opiate withdrawal protocol Oxycontin Belbuca Subutex taper PRN oxycodone, tizanidine, subutex
Clonidine 0.1 mg BID w/ holding parameters, increased to 0.2 mg TID w/ start 0.3 mg Clonidine patch 06/07 to encourage compliance
Labetalol prn SBP>180 or DBP>100
Diarrhea likely withdrawal since resolved
#Active smoker/Vaping
Half a pack a day
Nicotine patch 14 mg
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
Dietary consult
#Hypomagnesemia
monitor and replete as necessary
DVT Prophylaxis:scd right leg
Code Status: Full Code
I spent a total of 50 minutes with the patient or on the floor. More than 50% of this time involved counseling and coordination of care.
Anticipated Discharge: 24 - 48 hours
Subjective/Interval History
-
Date of Service: June 07, 2025
labile mood, very withdrawn irritable early in day, refusing to speak. Shouts 'leave me alone' after repeated inquiry. More talkative and cooperative later in the day
Objective Data
-
Labs:
Laboratory Results
06/07/25
03:19
WBC 6.4
Hgb 8.9 L
Hct 28.3 L
Plt Count 590 H
Sodium 139
Potassium 4.5
Chloride 110 H
Carbon Dioxide 20 L
BUN 20
Creatinine 1.1
Glucose 83
Calcium 8.4
Total Bilirubin 1.2
AST 21
ALT 16
Alkaline Phosphatase 449 H
Vital Signs:
Vital Signs
Temp Pulse Resp BP Pulse Ox
98.1 F 73 20 197/128 99
06/07/25 07:23 06/07/25 06:00 06/07/25 06:00 06/07/25 07:35 06/07/25 06:00
I&O
06/06/25 06/07/25 06/08/25
06:59 06:59 06:59
Intake Total 500 / 500 250 / 250
Output Total 300 / 300 850 / 850
Balance 200 / 200 -600 / -600
--- NOTE | 2025-06-07 08:22 | W.PN.ID1 ---
Date of Service
Date of Service: June 07, 2025
Today's Communication
follow bone cultures
empiric cipro/augmentin in the meantime
risk of outpatient IV antibiotics unacceptably high
Assessment / Plan
Right Elbow Chronic Osteomyelitis
- s/p bone biopsy for culture with IR - follow for culture
- joint is already destroyed, antibiotics will not restore function
- risk of outpatient IV antibiotics includes misuse of the line and and is unacceptably high, we will attempt the oral combination of ciprofloxacin and augmentin pending bone biopsy results
- antibiotics could be terminal operations supervisor for suppression if we are able to find an effective regimen
- patient remains at high risk of limb loss
Left Lower Extremity Wound with underlying chronic osteomyelitis
- s/p bone biopsy for culture with IR - follow for culture
- has a midline to be removed before dc
- risk of outpatient IV antibiotics includes misuse of the line and is unacceptably high, we will attempt the oral combination of ciprofloxacin and augmentin pending bone biopsy results
- antibiotics could be terminal operations supervisor for suppression if we are able to find an effective regimen
- risk of limb loss is high particularly if unable to heal the wound.
Chief Complaint
-: Other (chronic osteomyelitis)
Subjective / Review of Systems
afebrile
bp stable
Vital Signs / Physical Exam
Vital Signs
Vital Signs
Temp Pulse Resp BP Pulse Ox
98.1 F 73 20 197/128 99
06/07/25 07:23 06/07/25 06:00 06/07/25 06:00 06/07/25 07:35 06/07/25 06:00
Physical Exam
Constitutional: No Acute Distress
Cardiovascular: Regular Rate and S1/S2; Negative Murmur or Rub
Pulmonary: Clear and Symmetric; Negative Wheezes or Rales
Gastrointestinal: Soft, Non Tender, Non Distended and Normal Bowel Sounds
Skin: Warm and Dry; Negative Rash or Jaundice
Objective Data
Lab Data
Lab Results
06/07/25 03:19
06/07/25 03:19
ESR 135 mm/hour (0-20) H 06/05/25 20:34
PT 18.6 Sec (11.4-14.6) H 06/05/25 20:34
INR 1.53 06/05/25 20:34
APTT 46.1 Sec (23.4-35.0) H 06/05/25 20:34
Estimated Creat Clear 73 ml/min 06/07/25 03:19
Lactic Acid 1.8 mmol/L (0.7-2.0) 06/05/25 20:34
Total Bilirubin 1.2 mg/dl (0.2-1.3) 06/07/25 03:19
AST 21 U/L (17-59) 06/07/25 03:19
ALT 16 U/L (0-50) 06/07/25 03:19
Alkaline Phosphatase 449 U/L (38-126) H 06/07/25 03:19
C-Reactive Protein 54.20 mg/L (0.0-10.00) H 06/05/25 20:34
Most recent labs reviewed.
Micro Results:
06/05/25 21:15 Blood Culture - Preliminary
Blood/Venous No Growth in 24 hours- Final report to follow
06/05/25 20:34 Blood Culture - Preliminary
Blood/Venous No Growth in 24 hours- Final report to follow
06/06/25 14:46 MRSA Screen - Pending
Nose
--- NOTE | 2025-06-07 10:17 | PN.CDI ---
CDI
- -
CDI:
Physician Documentation Request
Admit Date: 06/05/25 22:48
Dear Doctor Kody,
Clinical Indicators:
Patient admitted with chronic wounds with osteomyelitis of right elbow and LLE.
06/06 PN, 'He was also treated for anemia received 2 units of blood transfusion and IV iron for iron deficiency...Anemia likely blood loss from wounds and Anemia of Chronic disease
PRBCs 2 units transfused.
Hgb/Hct trend:
06/05/25 06/06/25
20:34 08:25
Hgb 5.3 L* 9.0 L D
Hct 18.4 L* 28.2 L
Based on the above, could you clarify, in your progress note, which of the following is the most likely type of anemia you are evaluating, monitoring and/or treating?
Acute blood loss anemia with baseline chronic iron deficiency anemia
Chronic iron deficiency anemia due to blood loss only
Other, please specify
Use of terms such as suspected, likely, concern for, or probable (associated with a specific diagnosis that is being evaluated, monitored, or treated as if it exists) are acceptable and can be coded in the inpatient setting, when documented at the
time of discharge.
Thank you,
CHRISTEN Guerrero RN
CDI Specialist
available via tiger text
Please use your independent medical judgment in providing your response.
--- NOTE | 2025-06-07 10:26 | PN.CDI ---
CDI
- -
CDI:
Physician Documentation Request
Admit Date: 06/05/25 22:48
Dear Doctor Kody,
Clinical Indicators:
Patient admitted with chronic wounds with osteomyelitis of right elbow and LLE.
06/06 Magnesium Sulfate 4 gm IV rider x 1.
Magnesium level:
06/06/25
08:25
Magnesium 1.4 L
Based on the above, could you clarify in the progress notes, the appropriate diagnosis, if significant, that supports the above abnormalities and additional evaluation, monitoring and/or treatment rendered:
Hypomagnesemia
Abnormal lab value, clinically insignificant
Other, please specify
Use of terms such as suspected, likely, concern for, or probable (associated with a specific diagnosis that is being evaluated, monitored, or treated as if it exists) are acceptable and can be coded in the inpatient setting, when documented at the
time of discharge.
Thank you,
CHRISTEN Guerrero RN
CDI Specialist
available via tiger text
Please use your independent medical judgment in providing your response.
--- NOTE | 2025-06-07 11:17 | PTCARENOTE ---
Assumed care of patient at beginning of this shift from previous RN. COWS protocol maintained: score was 11 this morning. Patient refused scheduled subutex but did agree to take scheduled oxycodone. When asked the reason for not wanting subutex,
patient stated 'I just don't want it.' BP elevated this morning despite receiving scheduled clonidine; labetolol given as per prn order. Patient quiet/withdrawn, needs encouragement to converse. Currently in IRAD for procedure. See worklist for full
assessment and vital signs.
--- NOTE | 2025-06-07 12:14 | PTCARENOTE ---
COWS not completed at noon d/t patient in IRAD.
[2025-06-07] MEDS: CIPRO PO ×3 (14:36→15:49)
[2025-06-07] MEDS: AUGMENTIN 875 MG/125 MG PO (14:36)
[2025-06-07] MEDS: VITAMIN B-12 PO (14:36)
--- NOTE | 2025-06-07 14:36 | PTCARENOTE ---
Addendum entered by Magaly Hickman RN 06/07/25 14:56:
Dr Gates made aware via TT.
Original Note:
Patient back from [facility]. Attempted to administer po medications to get caught up as he was off the unit for most of the day. Explained medication to patient. He refused. Then yelled, 'shut up. stop saying my name.' [facility] RN in to see patient as well;
he refused.
--- NOTE | 2025-06-07 15:03 | WOUNDNOTE ---
WOC RN NOTE: Patient visited for wound consult but refused. Dr Gates made aware via TT.
[2025-06-07] MEDS: AUGMENTIN 875 MG/125 MG 1 TABLET PO ×2 (15:08→19:54)
[2025-06-07] MEDS: NORVASC 2.5 MG PO (15:09)
--- NOTE | 2025-06-07 15:34 | WOUNDNOTE ---
ANTERIOR LEFT LEG WOUND
--- NOTE | 2025-06-07 15:35 | WOUNDNOTE ---
LEFT LEG WOUND
--- NOTE | 2025-06-07 15:49 | PTCARENOTE ---
Patient woke up and was cooperative to take po meds. He vomited the 1.5 tablets of cipro. He refused compazine and then refused to try to take cipro again. He was able to take his other meds. He was also cooperative with seeing WOC RN.
--- NOTE | 2025-06-07 15:49 | WOUNDNOTE ---
[facility] RN NOTE: Reviewed chart and met with patient. Patient has current osteomyelitis of left lower leg and chronic wound secondary to IVDA. The wound has a foul odor and moderate drainage. See work list for measurement and description of left lower
leg wound. Wound was cleaned with normal saline and covered with adaptic and dry dressing. Will recommend cleaning wound with Dakins at the next dressing change. Heels and sacrum are intact. Patient has low BMI and admits to poor appetite. SALTY Mckenzie
puja update. Will follow as needed.
--- NOTE | 2025-06-07 15:50 | PTCARENOTE ---
Patient's clonidine order changed from 0.1mg to 0.2mg. He received the 0.1mg dose at 15:09 and is now due for the 0.2mg po dose as well as 0.3mg clonidine patch. He also received norvasc 2.5mg po at 15:09. BP 198/130. Reviewed all with pharmacist
Radha who stated ok to give and that the clonidine patch takes at least a day to start.
[2025-06-07] MEDS: CATAPRES 0.2 MG PO (15:55)
[2025-06-07] MEDS: VITAMIN B-12 1000 MCG PO (15:55)
[2025-06-07] MEDS: CATAPRES-TTS-3 0.3 MG TRANSDERM (15:55)
[2025-06-07] MEDS: ROXICODONE 20 MG PO (19:54)
[2025-06-07] MEDS: CIPRO 750 MG PO (19:54)
--- NOTE | 2025-06-07 20:04 | PTCARENOTE ---
Addendum entered by Germaine Ley RN 06/08/25 05:40:
Patient refused morning blood draw at this time
Addendum entered by Germaine Ley RN 06/08/25 01:31:
Patient is yelling/ cursing at this nurse when this nurse to check whether patient wants to take his ordered meds as patient unable to sleep/ restless in bed.
Addendum entered by Germaine Ley RN 06/08/25 00:45:
Patient still refusing meds/ bp still high/ Patient is refusing to get bp on Upper extremities/ patient is upset 'not able to sleep'. RHONDA Zazueta made aware.
Addendum entered by Germaine Ley RN 06/07/25 21:09:
patient's Bp- 193/132, patient adamantly refusing meds at this time.
Original Note:
Patient's bp- 179/126, c/o 10/10 pain. administered oxycodone as ordered.
[2025-06-07] MEDS: PHENERGAN 51 MG IV (22:19)
[2025-06-08] VITALS (40 sets, daily range): BP systolic 151–209; BP diastolic 86–138
[2025-06-08] MEDS: CATAPRES PO ×4 (01:31→22:09)
[2025-06-08] MEDS: TYLENOL PO ×2 (01:37→13:11)
[2025-06-08] MEDS: OXYCONTIN (CONTROLLED RELEASE) PO ×2 (01:37→13:00)
--- NOTE | 2025-06-08 07:58 | W.PN.HOSP.TC ---
Today's Communication/Plan
-
remains in severe opiate withdrawal, agitated refusing meds/labs/examination, associate hypertensive urgency, Transferred to ICU for possible benefit precedex gtt 06/08
abx as per ID
Assessment / Plan
Assessment / Plan
Physical Exam 06/07/25 Patient refused Physical exam today 06/08/25
General: appears to be in moderate distress tremulous
HEENT: NormoCephalic, Anicteric, Dilated pupils, missing teeth
Respiratory: Clear; No Wheezes, Rales or Rhonchi
Cardiac: S1/S2 and Regular Rhythm; No Murmur, Rub, Gallop or Peripheral Edema
GI: Soft, Non Tender, Non Distended and Normal Bowel Sounds
Musculoskeletal: right elbow swelling and chronic contracture, Lower ext b/l dressing clean dry intact
Neuro: Nonverbal, communicating with head gestures if communicating at all, follows simple commands, tremulous
Psych: appears relatively Calm
30M Tobacco chronic IVDA (Fentanyl Tranq), right elbow chronic osteomyelitis, LLE chronic wound w underlying chronic osteomyelitis. Attempted to go to to his rehab facility but was refused admission due to treatment for his wounds. He is
reportedly still using IV drugs and injecting into the wounds in his leg. Currently staying in a nursing home in [place].he was brought here by support personnel who have been following him for the last year. He had prior admission for sepsis with
multiple organ failure, necrotizing cellulitis affecting wounds lower extremities b/l. He was also treated for pneumonia required intubation and pressure support. He required debridement of lower extremity wounds to his left leg in April 2023.
He was recommended to have surgery on his right elbow but never followed up with treatment. He was also treated for anemia received 2 units of blood transfusion and IV iron for iron deficiency. He
#Anemia likely blood loss from wounds (possible acute blood loss vs chronic blood loss) and Anemia of Chronic disease
-Hgb 5.3 responded well to 2PRBC transfusion
-Iron study reviewed
-Monitor H&H, stable at this time since transfusions as above
#FX right elbow secondary recent fall with OSTEO
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
#History of osteomyelitis of the right elbow joint (chronic)
Was advised in October needed follow-up but did not obtain
- ESR 135, blood cultures x 2 NGTD
- xray right elbow:Redemonstrate changes related to chronic osteomyelitis with extensive deformity and fragmentation of the proximal ulna and radius with chronic subluxation of the elbow joint articulations. progressed from prior. A component of
superimposed acute osteomyelitis is difficult to exclude radiographically. No obvious acute erosive component. Moderate soft tissue swelling about the elbow redemonstrated. No definite joint effusion.
- Consult Orthopedic Appreciated no surgical intervention recommended at this time. May require above elbow amputation if continues to worsen despite abx
#Left lower extremity entire anterior santos open wound with OSTEO from IVDA
#History of debridement October 2024 due to necrotizing soft tissue infection
- Tib fib xray LLE: Extensive chronic appearing cortical thickening/sclerosis and periosteal reaction along the tibia and fibula diaphyses, likely reflecting chronic osteomyelitis. Soft tissue irregularity noted along the anterior lower leg. No
acute fractures or dislocation. Partially visualized regional joints are grossly unremarkable.
- Consult surgery appreciated wound infection not amenable to debridement, risk of limb loss
- empirically treated with IV Zosyn IV vancomycin
- Consult ID appreciated abx held for IR bone bx 06/07/25, empiric Cipro Augmentin started after bx, risk of outpatient IV antibiotics unacceptably high
- follow bone bx cx's
- IR eval appreciated
- Wound care eval appreciated
#Polysubstance abuse IVDA
#Anxiety/depression
#Hypertensive urgency likely 2/2 opiate withdrawal
History UDS positive for fentanyl, cocaine, and marijuana october 2024
Patient has been injecting fentanyl/Tranq in his wound approximately 12 times a day total used 24 bags daily
Last use 06/05/2025
transferred to IMU for closer monitoring 06/06
Opiate withdrawal protocol Oxycontin Belbuca Subutex taper PRN oxycodone, tizanidine, subutex
Clonidine 0.1 mg BID w/ holding parameters, increased to 0.2 mg TID w/ start 0.3 mg Clonidine patch 06/07 to encourage compliance
Labetalol prn SBP>180 or DBP>100
06/08 remains in severe opiate withdrawal, agitated refusing meds/labs/examination, associate hypertensive urgency, Transferred to ICU for possible benefit precedex gtt 06/08
#Active smoker/Vaping
Half a pack a day
Nicotine patch 14 mg
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
Dietary consult
#Hypomagnesemia
monitor and replete as necessary
DVT Prophylaxis:scd right leg
Code Status: Full Code
pt's mother Adriana called to provide update, no answer received, brief update message left (including transfer to ICU for possible benefit precedex gtt) and call back number left, will also re-attempt contact at later time.
I spent a total of 50 minutes with the patient or on the floor. More than 50% of this time involved counseling and coordination of care.
Anticipated Discharge: > 48 hours
Subjective/Interval History
-
Date of Service: June 08, 2025
Severe opiate withdrawal, agitated, refusing medications/examination, associate Hypertensive urgency
Objective Data
-
Labs:
Laboratory Results
06/08/25
06:00
WBC Pending
Hgb Pending
Hct Pending
Plt Count Pending
Sodium Pending
Potassium Pending
Chloride Pending
Carbon Dioxide Pending
BUN Pending
Creatinine Pending
Glucose Pending
Calcium Pending
Total Bilirubin Pending
AST Pending
ALT Pending
Alkaline Phosphatase Pending
Vital Signs:
Vital Signs
Temp Pulse Resp BP Pulse Ox
99.9 F 106 26 190/126 97
06/08/25 03:35 06/08/25 07:22 06/08/25 07:22 06/08/25 07:04 06/08/25 07:22
I&O
06/07/25 06/08/25 06/09/25
06:59 06:59 06:59
Intake Total 250 / 250 480 / 480
Output Total 850 / 850 750 / 750
Balance -600 / -600 -270 / -270
--- NOTE | 2025-06-08 08:47 | PTCARENOTE ---
Patient received from material handler 1st shift. Patient resting comfortably in bed although uncooperative. AAO, VSS. Patient refusing medications and care stating 'get the f*ck off me.' Will attempt to give medications later. Unable to get reliable BP due
to refusal of allowing one to be taken on arm. No testing scheduled at this time. Call steinberg in reach.
--- NOTE | 2025-06-08 09:31 | W.PN.ID1 ---
Date of Service
Date of Service: June 08, 2025
Today's Communication
continue ciprofloxacin, augmentin
Assessment / Plan
Right Elbow Chronic Osteomyelitis
- s/p bone biopsy for culture with IR - follow for culture
- joint is already destroyed, antibiotics will not restore function
- risk of outpatient IV antibiotics includes misuse of the line and and is unacceptably high, we will attempt the oral combination of ciprofloxacin and augmentin pending bone biopsy results
- antibiotics could be snf for suppression if we are able to find an effective regimen
- patient remains at high risk of limb loss
Left Lower Extremity Wound with underlying chronic osteomyelitis
- s/p bone biopsy for culture with IR - follow for culture
- has a midline to be removed before dc
- risk of outpatient IV antibiotics includes misuse of the line and is unacceptably high, we will attempt the oral combination of ciprofloxacin and augmentin pending bone biopsy results
- antibiotics could be snf for suppression if we are able to find an effective regimen
- risk of limb loss is high particularly if unable to heal the wound.
Chief Complaint
-: Other (chronic osteomyelitis)
Subjective / Review of Systems
afebrile
bp stable
bone biopsies were successful
Vital Signs / Physical Exam
Vital Signs
Vital Signs
Temp Pulse Resp BP Pulse Ox
99.5 F 106 26 190/126 97
06/08/25 08:00 06/08/25 07:22 06/08/25 07:22 06/08/25 07:04 06/08/25 07:22
Physical Exam
Constitutional: No Acute Distress
Cardiovascular: Regular Rate and S1/S2; Negative Murmur or Rub
Pulmonary: Clear and Symmetric; Negative Wheezes or Rales
Gastrointestinal: Soft, Non Tender, Non Distended and Normal Bowel Sounds
Skin: Warm and Dry; Negative Rash or Jaundice
Objective Data
Lab Data
ESR 135 mm/hour (0-20) H 06/05/25 20:34
PT 18.6 Sec (11.4-14.6) H 06/05/25 20:34
INR 1.53 06/05/25 20:34
APTT 46.1 Sec (23.4-35.0) H 06/05/25 20:34
Estimated Creat Clear 73 ml/min 06/07/25 03:19
Lactic Acid 1.8 mmol/L (0.7-2.0) 06/05/25 20:34
Total Bilirubin 1.2 mg/dl (0.2-1.3) 06/07/25 03:19
AST 21 U/L (17-59) 06/07/25 03:19
ALT 16 U/L (0-50) 06/07/25 03:19
Alkaline Phosphatase 449 U/L (38-126) H 06/07/25 03:19
C-Reactive Protein 54.20 mg/L (0.0-10.00) H 06/05/25 20:34
Most recent labs reviewed.
Micro Results:
06/05/25 21:15 Blood Culture - Preliminary
Blood/Venous No Growth in 48 hours- Final report to follow
06/05/25 20:34 Blood Culture - Preliminary
Blood/Venous No Growth in 48 hours- Final report to follow
06/07/25 11:45 Tissue Culture - Pending
Tibia Gram Stain - Preliminary
06/07/25 11:45 Tissue Culture - Pending
Other-Please specify - Other Gram Stain - Preliminary
06/06/25 14:46 MRSA Screen - Final
Nose No Methicillin Resistant Staphylococcus aureus isolated.
--- NOTE | 2025-06-08 10:23 | CON.INTV ---
Consultation
Consultation Request
Date/Time Consultation Requested: 06/08/25, 10:00
Date/Time Consultation Performed: 06/08/25, 10:45
Reason for Consultation: opioid withdrawal w HTN urgency
Medical History
-
Chief Complaint: opioid withdrawal w HTN urgency
History of Present Illness:
Patient is a 38-year-old M with a PMH notable for IVDU (fentanyl, xylazine, heroin), hepatitis C, chronic R elbow & LLE wounds (s/p admission 10/2024 for sepsis 2/2 necrotizing infection from LLE), who presented to ED on 06/05 from rehab facility
due to ongoing LLE necrotizing skin infection, into which he has continued to inject drugs. Admission has been complicated by acute opioid withdrawal precipitated by patient refusal to take meds, along with associated hypertensive urgency. Patient
transferred to ICU/senior web architect consulted on 06/08 due to worsening of withdrawal sx and potential benefit of Precedex infusion.
Hospital course, in brief:
Patient was discharged in November 2024 after being treated for sepsis with multiorgan failure, including hypoxic respiratory failure requiring intubation, 2/2 infection and chronic LLE wound. LLE was debrided during October-November 2024 admission.
Patient continued injecting IV drugs into LLE following discharge. He lives in a usp in [place] and recently presented to his rehab facility but was refused admission due to ongoing necrotizing skin infection of LLE, requiring treatment.
Patient then presented to ED. Last use of IV drugs (injected into LLE wounds) was afternoon of 06/05. Patient also has known chronic osteomyelitis of right elbow for which surgery was recommended, but he has not followed up with treatment.
On presentation to ED, patient was afebrile, BP ranging 120s-170s SBP. WBC 8.6. Urine toxicology was positive for opiates, fentanyl, cocaine, marijuana. Alcohol was negative. Patient is an active smoker. He also injects xylazine. Leading up to
this admission, patient was injecting fentanyl/Tranq in his wound approximately 12 times a day total used 24 bags daily (last use afternoon of 06/05). LLE x-ray demonstrated extensive chronic cortical thickening/sclerosis and periosteal reaction of
the tibia bial and fibula. X-ray of right elbow redemonstrated chronic osteomyelitis with deformity and fragmentation of proximal ulna and radius, which had progressed. Patient was started on empiric ciprofloxacin and amox/clav, along with opioid
withdrawal protocol (oxycodone, clonidine, buprenorphine with as needed tizanidine, aspirin, oxycodone). BP was treated with amlodipine 5 mg daily.
Patient was transferred to the IMU for closer monitoring on 06/06, when he began experiencing worsening of opiate withdrawal symptoms with hypertensive urgency (BP 190s/90s). He had been intermittently refusing meds, including buprenorphine. Per
senior web architect note, patient was largely nonverbal, follows only simple commands, minimally communicative. On 06/07, bone biopsies were taken of the right humerus and left tibia. Tissue cultures pending. Blood cultures have remained negative. Per ID,
risk of limb loss. Labetalol 10 mg IV as needed for SBP greater than 180 was added. Clonidine dose was increased and transepidermal patch added.
On 06/08, patient remained in severe opiate withdrawal, was agitated and refusing meds/labs/examination. BP remained elevated at 190/126. Patient was transferred to the ICU and senior web architect consulted, given possible benefit of Precedex gtt. at time
of transfer, BP 190/126, HR 106, RR 26, O2 sat 97% on RA, afebrile. WBC 8.6>11.3>6.4.
On transfer to the ICU, patient is somnolent, minimally responsive. With eye mask on, curled up on R side. Responds to commands (able to squeeze my hand, able to state his name, although with much effort/slurred speech). Shakes head when asked if
in pain. Not able to answer any more complex questions. No visible tremors or labored work breathing.
Past Medical History
Past Medical History: Psychiatric (Anxiety/depression/IVDU (heroin, fentanyl, xylazine)) and Other (Chronic osteomyelitis right elbow, left tibia; chronic wounds LLE)
Past Surgical History: Other (LLE debridement)
Social History
Tobacco: Smoker
Alcohol: Occasional
Drug: Marijuana, Cocaine and IVDA (Fentanyl, xylazine, heroin)
Living: Homeless ([facility])
Family History
Family History: Reviewed & Not Pertinent
Allergies / Home Medications
Allergies
Allergy/AdvReac Type Severity Reaction Status Date / Time
No Known Allergies Allergy Verified 11/17/24 08:16
Review of Systems
-
Unable to Obtain full review of systems at this time due to: Acuity
Vitals / Labs / Diagnostic Testing
Vital Signs
Temp Pulse Resp BP Pulse Ox
99.5 F 106 26 190/126 97
06/08/25 08:00 06/08/25 07:22 06/08/25 07:22 06/08/25 07:04 06/08/25 07:22
Microbiology
06/05/25 21:15 Blood/Venous Blood Culture - Preliminary
No Growth in 48 hours- Final report to follow
06/05/25 20:34 Blood/Venous Blood Culture - Preliminary
No Growth in 48 hours- Final report to follow
06/07/25 11:45 Tibia Gram Stain - Preliminary
06/07/25 11:45 Other-Please specify - Other Gram Stain - Preliminary
06/06/25 14:46 Nose MRSA Screen - Final
No Methicillin Resistant Staphylococcus aureus isolated.
Diagnostic Testing:
Physical Exam
-
HEENT: Normocephalic and Other (Temporal wasting, cachectic)
Cardiovascular: Regular Rhythm (Tachycardic) and Peripheral Edema (None)
Respiratory: Clear, Non-Labored Respirations and Accessory Resp Muscle Use (None)
GI: Non Distended
Neurology: Other (Sleeping with eye mask on, able to state his name with slurred/labored speech, follows command of squeezing hand, not able to answer any more complex questions)
Skin: Warm, Dry and Other (Bandages on bilateral lower extremities and right arm)
General: Other (Appears uncomfortabl, curled up on side, eye mask on for sleeping)
Assessment
-
Patient is a 38-year-old M with a PMH notable for IVDU (fentanyl, xylazine, heroin), hepatitis C, chronic R elbow & LLE wounds (s/p admission 10/2024 for sepsis 2/2 necrotizing infection from LLE), who presented to ED on 06/05 from rehab facility
due to ongoing LLE necrotizing skin infection, into which he has continued to inject drugs. Admission has been complicated by acute opioid withdrawal precipitated by patient refusal to take meds, along with associated hypertensive urgency (BP
190s/120s). Patient transferred to ICU/senior web architect consulted on 06/08 due to worsening of withdrawal sx and potential benefit of Precedex infusion. Course/plan as below.
#Polysubstance IVDU
#Anxiety/depression
Patient with a history of polysubstance IVDU, including fentanyl and xylazine. Most recent injections 06/05 into LLE. Per hospitalist note, patient using 24 bags daily of fentanyl/xylazine. Has had worsening opioid withdrawal symptoms over course
of this admission given lack of compliance with COWs protocol medications. On admission to ICU, patient with depressed mental status/somnolent, minimally responsive although able to follow basic commands. Denying any pain.
- Start precedex gtt
- Buprenorphine 8mg bid, per protocol
- Oxycodone 20 mg q8h, per protocol
- Clonidine 0.2mg tid
- Clonidine transdermal patch
- Tylenol 1 g q8h
- PRNs: Zofran, tizanidine 2 mg q6h, oxycodone 20 mg, add PRN bowel regimen
#Hypertensive urgency likely 2/2 opiate withdrawal
BP 190/120s at time of transfer to ICU. Patient with elevated BP on admission up to 170s, but fluctuated down to 120s as well. Hypertensive urgency has worsened worsened over course of admission with onset of opioid and xylazine withdrawal and
refusal to take medications. Tachycardic.
- Amlodipine 5 mg p.o. daily increase?
- Labetalol 10 mg IV as needed every 4 hours for SBP greater than 180
- Management of withdrawal symptoms as above, clonidine as above
#Malnutrition
Patient chronically malnourished in the setting of IVDU, intermittent homelessness.
- Continue B12
- Mgmt per primary team
#Osteomyelitis of L tibia
#Chronic necrotizing SSTI of LLE
#Chronic osteomyelitis of R humerus
Patient with recent debridement of LLE wounds during October - November 2024 admission. X-rays this admission demonstrate ongoing osteomyelitis of both sites. Bone biopsy of both sites 06/07 completed, tissue biopsy results pending. Blood cultures
this admission negative.
- Continue empiric ciprofloxacin twice daily 750 mg and amox-clav q12h
- Follow-up on biopsy cultures
- ID following, appreciate recs
- Mgmt per primary team
#Tobacco use
Patient is an active smoker. Unclear how much.
- Nicotine patch
#Global
- DVT PPx: lovenox
- Diet: Regular
- Code: Full
- Dispo: Downgrade to IMU once Precedex gtt off
Data Reviewed
-
EKG: Report reviewed by me
Radiology: Image personally visualized and interpreted and Report reviewed by me
Labs: Labs reviewed by me
Critical Care Time (in minutes): 45
Total Time Spent with Patient (in minutes): 10
[2025-06-08] MEDS: AUGMENTIN 875 MG/125 MG PO ×3 (13:11→22:08)
[2025-06-08] MEDS: NORVASC 5 MG PO (13:12)
[2025-06-08] MEDS: VITAMIN B-12 PO (13:13)
[2025-06-08] MEDS: CIPRO PO ×3 (13:13→22:09)
--- NOTE | 2025-06-08 13:42 | CM ---
F/U: RN stated that patient is going to the ICU for now for Precedex drip. Patient continues to be aggressive and non-cooperative towards staff. Patient has a difficult discharge plan as he is homeless, has wounds that cannot be treated in a
intermediate, and may not be accepted to a SNF due to recent/ long time substance abuse. PT/OT has not evaluated the patient yet. PLAN: TBD, Nursing Home vs. SNF
[2025-06-08] MEDS: CATAPRES 0.2 MG PO ×2 (14:17→15:18)
[2025-06-08] MEDS: TYLENOL 1000 MG PO (15:18)
[2025-06-08] MEDS: OXYCONTIN (CONTROLLED RELEASE) 20 MG PO (15:18)
[2025-06-08 15:41] LABS: ALT (SGPT) 16 U/L (0-50); AST (SGOT) 20 U/L (17-59); Albumin 3.1 g/dl (3.5-5.0); Alkaline Phosphatase 401 U/L (38-126); Blood Urea Nitrogen 24 mg/dl (9-20); Calcium 8.7 mg/dl (8.4-10.2); Carbon Dioxide 20 mmol/L (22-30); Chloride 109 mmol/L (98-107); Estimated Creatinine Clearance 66 ml/min; Glucose 105 mg/dl (70-99); Magnesium 1.9 mg/dl (1.6-2.3); Potassium 4.6 mmol/L (3.5-5.1); Sodium 139 mmol/L (135-145); Total Protein 7.2 g/dl (6.3-8.2); eGFR > 60.00
--- NOTE | 2025-06-08 15:42 | PTCARENOTE ---
Patient received into icu around 1330 from imu. Blood pressures are still 200/100's- however, pt is agreeable to take morning amlodipine and clonidine. Around 1530 pt's bp is still 190/100's. RN checked in with pharmacy to confirm administration of
1600 clonidine since he got his original am dose not too long ago. Pharmacy in agreement to give scheduled 1600 dose given patients continued hypertension.
Pt has been agreeable to take all of his 1600 medications, for RN to obtain labwork, and agreed to RN changing his dressing later in shift. See MAR/flowsheets for further care details.
[2025-06-08 15:45] LABS: Hematocrit 30.7 % (39.0-52.0); Hemoglobin 9.7 g/dL (13.0-18.0); Mean Corp Hgb Conc. 31.6 g/dL (33.0-37.0); Mean Corpuscular Volume 69.5 fL (80.0-94.0); Nucleated Red Blood Cells % 0 % (-); Platelet Count 558 10^3/uL (130-400); Red Cell Dist. Width 24.7 % (11.5-14.5)
--- NOTE | 2025-06-08 15:58 | PN.CDI ---
CDI
- -
CDI:
Physician Documentation Request
Admit Date: 06/05/25 22:48
Dear Doctor Kody,
Clinical Indicators:
Patient admitted with chronic wounds with osteomyelitis of right elbow and LLE.
06/06 PN, 'Nonverbal, communicating with head gestures if communicating at all, follows simple commands'
06/07 PN,'very withdrawn irritable...More talkative and cooperative later in the day'
06/08 PN,'remains in severe opiate withdrawal, agitated refusing meds/labs/examination'
06/08 Transfer to ICU; petrophysicist notes 'On transfer to the ICU, patient is somnolent, minimally responsive.'
Based on the above, could you clarify which, if any of the following, is the most likely etiology of the confusion/altered mental status.
Toxic Metabolic Encephalopathy due to opiate withdrawal
Opiate withdrawal only
Other, please specify
Use of terms such as suspected, likely, concern for, or probable (associated with a specific diagnosis that is being evaluated, monitored, or treated as if it exists) are acceptable and can be coded in the inpatient setting, when documented at the
time of discharge.
Thank you,
CHRISTEN Guerrero RN
CDI Specialist
available via tiger text
Please use your independent medical judgment in providing your response.
--- NOTE | 2025-06-08 16:05 | PTCARENOTE ---
camacho text to hospitalist about patients agreeable behavior, that he is sleeping and allowing me to administer medications and obtain lab work. Have not needed to begin precedex gtt
[2025-06-08] MEDS: DAKIN'S SOLUTION 0.125% 1/4 STRENGTH 473 ML TOPICAL (16:57)
[2025-06-08] MEDS: PRECEDEX 100 IV (16:57)
--- NOTE | 2025-06-08 17:05 | PTCARENOTE ---
After discussion with MD Gates and pharmacy, decision was made to begin Precedex given continued HTN and to help with withdrawal from zylazine/medetomidine components
[2025-06-08] MEDS: TRANDATE 10 MG IV (17:45)
[2025-06-08 18:40] LABS: Anisocytosis 2+; Hypochromasia 3+; Normal RBC Morphology No
[2025-06-08 18:41] LABS: Target Cells 1+
[2025-06-08] MEDS: SUBUTEX SL ×2 (20:41→22:09)
--- NOTE | 2025-06-08 21:00 | PTCARENOTE ---
Pt is Aox3, Drowsy, very hard to understand, speech is garbled. GAGE, follows commands, uses call steinberg appropriately. NSR on monitor. Precedex infusing thru left Midline. Pt refused night time medications at 1999, he agreed to take medication at
2200. RN returned at 2200 to give medication and patient refused again. Right elbow swollen, foam is applied, B/L LE wrapped with KENRICK bandages, Palpable pulses.
[2025-06-09] VITALS (45 sets, daily range): BP systolic 135–195; BP diastolic 45–120; BMI 16.9
[2025-06-09] MEDS: TYLENOL PO ×3 (00:47→23:37)
[2025-06-09] MEDS: TRANDATE 10 MG IV ×3 (00:48→12:10)
[2025-06-09 05:51] LABS: ALT (SGPT) 14 U/L (0-50); AST (SGOT) 18 U/L (17-59); Albumin 3.0 g/dl (3.5-5.0); Alkaline Phosphatase 412 U/L (38-126); Blood Urea Nitrogen 27 mg/dl (9-20); Calcium 8.6 mg/dl (8.4-10.2); Carbon Dioxide 21 mmol/L (22-30); Chloride 111 mmol/L (98-107); Estimated Creatinine Clearance 66 ml/min; Glucose 92 mg/dl (70-99); Magnesium 1.9 mg/dl (1.6-2.3); Potassium 4.8 mmol/L (3.5-5.1); Sodium 141 mmol/L (135-145); Total Protein 7.1 g/dl (6.3-8.2); eGFR > 60.00
--- NOTE | 2025-06-09 06:31 | PTCARENOTE ---
Assessment unchanged, pt withdrawn, does not participate much in care uncooperative at times.
[2025-06-09 06:56] LABS: Hematocrit 29.8 % (39.0-52.0); Hemoglobin 9.6 g/dL (13.0-18.0); Mean Corp Hgb Conc. 32.2 g/dL (33.0-37.0); Mean Corpuscular Volume 71.1 fL (80.0-94.0); Nucleated Red Blood Cells % 0 % (-); Platelet Count 501 10^3/uL (130-400); Red Cell Dist. Width 24.2 % (11.5-14.5)
--- NOTE | 2025-06-09 07:04 | W.PN.INTV ---
Today's Communication / Plan
Recommendations
- Continue to wean Precedex
- Likely can be transferred to IMU once off Precedex infusion
Assessment
-
Patient is a 38-year-old M with a PMH notable for IVDU (fentanyl, xylazine, heroin), hepatitis C, chronic R elbow & LLE wounds (s/p admission 10/2024 for sepsis 2/2 necrotizing infection from LLE), who presented to ED on 06/05 from rehab facility
due to ongoing LLE necrotizing skin infection, into which he has continued to inject drugs. Admission has been complicated by acute opioid withdrawal precipitated by patient refusal to take meds, along with associated hypertensive urgency (BP
190s/120s). Patient transferred to ICU/lapel baster consulted on 06/08 due to worsening of withdrawal sx and potential benefit of Precedex infusion. Course/plan as below.
Overview 06/09. Patient awake, alert, no tremors noted today. Precedex down to 0.2. Vitals 150/57, saturating 98% on room air
#Polysubstance IVDU
#Anxiety/depression
Patient with a history of polysubstance IVDU, including fentanyl and xylazine. Most recent injections 06/05 into LLE. Per hospitalist note, patient using 24 bags daily of fentanyl/xylazine. Has had worsening opioid withdrawal symptoms over course
of this admission given lack of compliance with COWs protocol medications. On admission to ICU, patient with depressed mental status/somnolent, minimally responsive although able to follow basic commands. Denying any pain.
- Clinically improving, continue to wean off Precedex infusion, currently at 0.2
- Buprenorphine 8mg bid, per protocol
- Oxycodone 20 mg q8h, per protocol
- Clonidine 0.2mg tid
- Clonidine transdermal patch
- Tylenol 1 g q8h
- PRNs: Zofran, tizanidine 2 mg q6h, oxycodone 20 mg, add PRN bowel regimen
#Hypertensive urgency likely 2/2 opiate withdrawal
BP 190/120s at time of transfer to ICU. Patient with elevated BP on admission up to 170s, but fluctuated down to 120s as well. Hypertensive urgency has worsened worsened over course of admission with onset of opioid and xylazine withdrawal and
refusal to take medications. Tachycardic.
- Did not require Cardene infusion. Blood pressure better controlled 150/57 today. Continue to titrate oral meds as needed
#Malnutrition
Patient chronically malnourished in the setting of IVDU, intermittent homelessness.
- Continue B12
- Mgmt per primary team
#Osteomyelitis of L tibia
#Chronic necrotizing SSTI of LLE
#Chronic osteomyelitis of R humerus
Patient with recent debridement of LLE wounds during October - November 2024 admission. X-rays this admission demonstrate ongoing osteomyelitis of both sites. Bone biopsy of both sites 06/07 completed, tissue biopsy results pending. Blood cultures
this admission negative.
- Continue empiric ciprofloxacin twice daily 750 mg and amox-clav q12h
- Follow-up on biopsy cultures
- ID following, appreciate recs
- Mgmt per primary team
#Tobacco use
Patient is an active smoker. Unclear how much.
- Nicotine patch
#Global
- DVT PPx: lovenox
- Diet: Regular
- Code: Full
- Dispo: Downgrade to IMU once Precedex gtt off
Critical Care time 35 mins -- The patient is admitted for acute critical illness for the treatment of vital organ failure and/or prevention of further life-threatening conditions. Total care includes time spent in review of history, physical exam,
medications, hemodynamic/ventilator parameters, laboratory data, imaging and discussion with house staff, pharmacy, respiratory therapy, vp scientific affairs, and nursing.
Subjective Dataa
Subjective Data
Date of Service:
Date of Service: June 09, 2025
Subjective:
Comfortably lying in bed in no acute distress
Review of Systems
Genitourinary: Other (All 14 systems reviewed and negative except as stated above in the history of present illness.)
Objective Data
Data Reviewed
Vital Signs / I&O / Oxygen:
Vital Signs
Temp Pulse Resp BP Pulse Ox
97.7 F 85 17 150/57 98
06/08/25 23:31 06/09/25 05:30 06/09/25 05:30 06/09/25 05:30 06/09/25 05:30
Intake and Output
06/08/25 06/09/25 06/10/25
06:59 06:59 06:59
Intake Total 480 / 480 240 / 240
Output Total 750 / 750 1400 / 1400
Balance -270 / -270 -1160 / -1160
SaO2 98
Physical Exam
General: Comfortable
HEENT: Normocephalic
Cardiovascular: S1-S2
Respiratory: Clear and Non-Labored Respirations
GI: Soft and Non Distended
Neurology: Awake and Alert
Skin: Warm
Labs/Micro/Reports
Lab Data
06/09/25 05:21
06/09/25 05:21
Microbiology
06/05/25 21:15 Blood/Venous Blood Culture - Preliminary
No Growth in 72 hours- Final report to follow
06/05/25 20:34 Blood/Venous Blood Culture - Preliminary
No Growth in 72 hours- Final report to follow
06/07/25 11:45 Other-Please specify - Other Tissue Culture - Preliminary
No Growth After 18-24 Hours
06/07/25 11:45 Other-Please specify - Other Gram Stain - Preliminary
06/07/25 11:45 Tibia Tissue Culture - Preliminary
No Growth After 18-24 Hours
06/07/25 11:45 Tibia Gram Stain - Preliminary
06/06/25 14:46 Nose MRSA Screen - Final
No Methicillin Resistant Staphylococcus aureus isolated.
--- NOTE | 2025-06-09 07:41 | W.PN.ID1 ---
Date of Service
Date of Service: June 09, 2025
Today's Communication
Continue antibiotics. Await cultures.
Assessment / Plan
#Right Elbow Chronic Osteomyelitis
- s/p bone biopsy for culture with IR - follow for culture
- joint is already destroyed, antibiotics will not restore function
- risk of outpatient IV antibiotics includes misuse of the line and and is unacceptably high. Will attempt the oral combination of ciprofloxacin and augmentin pending bone biopsy results
- antibiotics could be long-term for suppression if we are able to find an effective regimen.
- patient remains at high risk of limb loss, especially given ongoing IVDA
# Left Lower Extremity Wound with underlying chronic osteomyelitis
- s/p bone biopsy for culture with IR - follow for culture
- has a midline; to be removed before d/c
- risk of outpatient IV antibiotics includes misuse of the line and is unacceptably high, we will attempt the oral combination of ciprofloxacin and augmentin pending bone biopsy results
- antibiotics could be long-term for suppression if we are able to find an effective regimen
- risk of limb loss is high particularly if unable to heal the wound and if continued IVDA.
# Hep C
����������������������������������������������������������
Chief Complaint
-: Other (chronic osteomyelitis)
Subjective / Review of Systems
Review of Systems: No Fever and No Chills
Vital Signs / Physical Exam
Vital Signs
Vital Signs
Temp Pulse Resp BP Pulse Ox
98.2 F 85 17 150/57 98
06/09/25 07:35 06/09/25 05:30 06/09/25 05:30 06/09/25 05:30 06/09/25 05:30
Physical Exam
Constitutional: No Acute Distress, Comfortable, Chronically Ill, Non-toxic and Cachetic (mild)
Eyes: No Conjunctival Hemorrhage
Cardiovascular: Regular Rate and S1/S2; Negative S3/S4 or Murmur
Pulmonary: Clear, Symmetric and Non Labored; Negative Wheezes or Rales
Gastrointestinal: Soft, Non Tender, Non Distended and Normal Bowel Sounds
Skin: Warm and Dry; Negative Rash or Jaundice
Wound: Other (B/L LE's wrapped in KENRICK. Wound photos reviewed.)
Neurological: Awake and Alert
Psychological: Calm
Objective Data
Lab Data
Lab Results
06/09/25 05:21
06/09/25 05:21
ESR 135 mm/hour (0-20) H 06/05/25 20:34
PT 18.6 Sec (11.4-14.6) H 06/05/25 20:34
INR 1.53 06/05/25 20:34
APTT 46.1 Sec (23.4-35.0) H 06/05/25 20:34
Estimated Creat Clear 66 ml/min 06/09/25 05:21
Lactic Acid 1.8 mmol/L (0.7-2.0) 06/05/25 20:34
Total Bilirubin 0.5 mg/dl (0.2-1.3) 06/09/25 05:21
AST 18 U/L (17-59) 06/09/25 05:21
ALT 14 U/L (0-50) 06/09/25 05:21
Alkaline Phosphatase 412 U/L (38-126) H 06/09/25 05:21
C-Reactive Protein 54.20 mg/L (0.0-10.00) H 06/05/25 20:34
Most recent labs reviewed.
Micro Results:
06/05/25 21:15 Blood Culture - Preliminary
Blood/Venous No Growth in 72 hours- Final report to follow
06/05/25 20:34 Blood Culture - Preliminary
Blood/Venous No Growth in 72 hours- Final report to follow
06/07/25 11:45 Tissue Culture - Preliminary
Other-Please specify - Other No Growth After 18-24 Hours
Gram Stain - Preliminary
06/07/25 11:45 Tissue Culture - Preliminary
Tibia No Growth After 18-24 Hours
Gram Stain - Preliminary
06/06/25 14:46 MRSA Screen - Final
Nose No Methicillin Resistant Staphylococcus aureus isolated.
Imaging:
06/05/2025 X-ray left tibia/fibula: extensive chronic appearing cortical thickening/sclerosis and periosteal reaction along the tibia and fibula diaphysis, likely reflecting chronic osteomyelitis. Soft tissue irregularity noted along the anterior
lower leg. No acute fracture or dislocation. Partially visualized regional joints are grossly unremarkable. Please see full dictation for additional detail.
06/05/2025 X-ray right elbow: Redemonstration of changes related to chronic osteomyelitis with extensive deformity and fragmentation of the proximal ulna and radius with chronic subluxation of the elbow joint articulations, progressed from prior. A
component of superimposed acute osteomyelitis is difficult to exclude radiographically. No obvious acute erosive component. Moderate soft tissue swelling about the elbow redemonstrated. No definite joint effusion.
--- NOTE | 2025-06-09 07:45 | W.PN.HOSP.TC ---
Today's Communication/Plan
-
cont blood pressure control
opiate withdrawal protocol
antibiotics as per ID
if stable and BP consistently <180/100 off precedex gtt can consider downgrade
would continue Precedex gtt if SBP remains >180 or DBP>100
Assessment / Plan
Assessment / Plan
Physical Exam
General: no acute distress, appears comfortable at this time
HEENT: NormoCephalic, Anicteric, Dilated pupils reactive , missing teeth
Respiratory: Clear; No Wheezes, Rales or Rhonchi
Cardiac: S1/S2 and Regular Rhythm; No Murmur, Rub, Gallop or Peripheral Edema
GI: Soft, Non Tender, Non Distended and Normal Bowel Sounds
Musculoskeletal: right elbow swelling and chronic contracture, Lower ext b/l dressing clean dry intact
Neuro: Nonverbal, communicating with head gestures, follows simple commands
Psych: appears relatively Calm
30M Tobacco chronic IVDA (Fentanyl Tranq), right elbow chronic osteomyelitis, LLE chronic wound w underlying chronic osteomyelitis. Attempted to go to to his rehab facility but was refused admission due to treatment for his wounds. He is
reportedly still using IV drugs and injecting into the wounds in his leg. Currently staying in a halfway in [place]he was brought here by support personnel who have been following him for the last year. He had prior admission for sepsis with
multiple organ failure, necrotizing cellulitis affecting wounds lower extremities b/l. He was also treated for pneumonia required intubation and pressure support. He required debridement of lower extremity wounds to his left leg in April 2023.
He was recommended to have surgery on his right elbow but never followed up with treatment. He was also treated for anemia received 2 units of blood transfusion and IV iron for iron deficiency. He
#Anemia likely blood loss from wounds (possible acute blood loss vs chronic blood loss) and Anemia of Chronic disease
-Hgb 5.3 responded well to 2PRBC transfusion
-Iron study reviewed
-Monitor H&H, stable at this time since transfusions as above
#FX right elbow secondary recent fall with OSTEO
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
#History of osteomyelitis of the right elbow joint (chronic)
Was advised in October needed follow-up but did not obtain
- ESR 135, blood cultures x 2 NGTD
- xray right elbow:Redemonstrate changes related to chronic osteomyelitis with extensive deformity and fragmentation of the proximal ulna and radius with chronic subluxation of the elbow joint articulations. progressed from prior. A component of
superimposed acute osteomyelitis is difficult to exclude radiographically. No obvious acute erosive component. Moderate soft tissue swelling about the elbow redemonstrated. No definite joint effusion.
- Consult Orthopedic Appreciated no surgical intervention recommended at this time. May require above elbow amputation if continues to worsen despite abx
#Left lower extremity entire anterior santos open wound with OSTEO from IVDA
#History of debridement October 2024 due to necrotizing soft tissue infection
- Tib fib xray LLE: Extensive chronic appearing cortical thickening/sclerosis and periosteal reaction along the tibia and fibula diaphyses, likely reflecting chronic osteomyelitis. Soft tissue irregularity noted along the anterior lower leg. No
acute fractures or dislocation. Partially visualized regional joints are grossly unremarkable.
- Consult surgery appreciated wound infection not amenable to debridement, risk of limb loss
- empirically treated with IV Zosyn IV vancomycin
- Consult ID appreciated abx held for IR bone bx 06/07/25, empiric Cipro Augmentin started after bx, risk of outpatient IV antibiotics unacceptably high
- follow bone bx cx's
- IR eval appreciated
- Wound care eval appreciated
#Polysubstance abuse IVDA
#Anxiety/depression
#Hypertensive urgency likely 2/2 opiate withdrawal
History UDS positive for fentanyl, cocaine, and marijuana october 2024
Patient has been injecting fentanyl/Tranq in his wound approximately 12 times a day total used 24 bags daily
Last use 06/05/2025
transferred to IMU for closer monitoring 06/06
Opiate withdrawal protocol Oxycontin Belbuca Subutex taper PRN oxycodone, tizanidine, subutex
Clonidine 0.1 mg BID w/ holding parameters, increased to 0.2 mg TID w/ start 0.3 mg Clonidine patch 06/07 to encourage compliance
Labetalol prn SBP>180 or DBP>100
06/08 remains in severe opiate withdrawal, agitated refusing meds/labs/examination, associate hypertensive urgency, Transferred to ICU for benefit precedex gtt 06/08
precedex helps w/ withdrawal from zylazine/medetomidine, notable improvement in bp following start of precedex gtt
can consider downgrade if remains stable and BP<180/100 off precedex gtt
Amlodipine 2.5 mg daily added, gradually titrated up to 10 mg daily (patient was discharged on 10 mg daily last hospitalization)
#Active smoker/Vaping
reportedly Half a pack a day
Nicotine patch 21 mg daily
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
Dietary consult appreciated
#Hypomagnesemia
monitor and replete as necessary
DVT Prophylaxis:scd right leg
Code Status: Full Code
discussed with pt and pt's mother Adriana
Total Critical Care Time__35___ minutes. I was immediately available to the patient and staff. I personally examined, reviewed labs, diagnostic images/reports, interpretations, treatment plans, discussed patient care with other providers,
patient, and patient's mother Adriana, entered orders as appropriate and documented the medical record.
Anticipated Discharge: > 48 hours
Subjective/Interval History
-
Date of Service: June 09, 2025
seen and examined at bedside in no acute distress resting comfortably in bed. Not talking but more cooperative/calm this morning compared to yesterday morning, notably refused meds last night.
Objective Data
-
Labs:
Laboratory Results
06/09/25
05:21
WBC 6.9
Hgb 9.6 L
Hct 29.8 L
Plt Count 501 H
Sodium 141
Potassium 4.8
Chloride 111 H
Carbon Dioxide 21 L
BUN 27 H
Creatinine 1.2
Glucose 92
Calcium 8.6
Total Bilirubin 0.5
AST 18
ALT 14
Alkaline Phosphatase 412 H
Vital Signs:
Vital Signs
Temp Pulse Resp BP Pulse Ox
98.2 F 85 17 150/57 98
06/09/25 07:35 06/09/25 05:30 06/09/25 05:30 06/09/25 05:30 06/09/25 05:30
I&O
06/08/25 06/09/25 06/10/25
06:59 06:59 06:59
Intake Total 480 / 480 240 / 240
Output Total 750 / 750 1400 / 1400
Balance -270 / -270 -1160 / -1160
[2025-06-09] MEDS: SUBUTEX 8 MG SL ×2 (08:54→20:04)
[2025-06-09] MEDS: NORVASC 5 MG PO ×2 (08:55→12:06)
[2025-06-09] MEDS: CIPRO 750 MG PO ×2 (08:55→20:04)
[2025-06-09] MEDS: CATAPRES 0.2 MG PO ×3 (08:55→22:25)
[2025-06-09] MEDS: VITAMIN B-12 PO (08:56)
[2025-06-09] MEDS: AUGMENTIN 875 MG/125 MG 1 TABLET PO ×2 (08:56→20:04)
[2025-06-09] MEDS: DAKIN'S SOLUTION 0.125% 1/4 STRENGTH 473 ML TOPICAL (08:57)
--- NOTE | 2025-06-09 10:43 | PTCARENOTE ---
Rec'd pt at 0700. Pt drowsy on Precedex gtts, awakens easily to verbal stimuli. Monitor SR. SBP 170's. AM meds given, refused some meds but agreeable to taking BP meds, antibx and subutex. Lungs CTA. +BS. 0930-pt calm and cooperative, Precedex gtts
turned off. Loose brown BM x2. Pt walked to bathroom with supervision.
[2025-06-09] MEDS: TYLENOL 1000 MG PO (14:30)
[2025-06-10] VITALS (25 sets, daily range): BP systolic 151–183; BP diastolic 79–118; BMI 16.6
[2025-06-10] MEDS: TRANDATE 10 MG IV ×3 (02:06→22:20)
[2025-06-10 04:20] LABS: Hematocrit 29.6 % (39.0-52.0); Hemoglobin 9.1 g/dL (13.0-18.0); Mean Corp Hgb Conc. 30.7 g/dL (33.0-37.0); Mean Corpuscular Volume 71.3 fL (80.0-94.0); Nucleated Red Blood Cells % 0 % (-); Platelet Count 475 10^3/uL (130-400); Red Cell Dist. Width 24.4 % (11.5-14.5)
[2025-06-10 04:33] LABS: ALT (SGPT) 14 U/L (0-50); AST (SGOT) 18 U/L (17-59); Albumin 3.2 g/dl (3.5-5.0); Alkaline Phosphatase 437 U/L (38-126); Blood Urea Nitrogen 27 mg/dl (9-20); Calcium 8.6 mg/dl (8.4-10.2); Carbon Dioxide 20 mmol/L (22-30); Chloride 109 mmol/L (98-107); Estimated Creatinine Clearance 59 ml/min; Glucose 93 mg/dl (70-99); Magnesium 1.8 mg/dl (1.6-2.3); Potassium 5.0 mmol/L (3.5-5.1); Sodium 141 mmol/L (135-145); Total Protein 7.3 g/dl (6.3-8.2); eGFR > 60.00
--- NOTE | 2025-06-10 04:49 | PTCARENOTE ---
Pt Aox3, NSR/ST on monitor. GAGE. SBP elevated, hard to get an accurate BP do to BP cuff on right upper thigh and patients constantly moving around.
--- NOTE | 2025-06-10 07:08 | W.PN.HOSP.TC ---
Today's Communication/Plan
-
Blood pressure control
check renal artery duplex
opiate withdrawal protocol
cont abx as per ID
downgrade to IMU
Assessment / Plan
Assessment / Plan
Physical Exam
General: no acute distress, appears comfortable at this time
HEENT: NormoCephalic, Anicteric, Dilated pupils reactive , missing teeth
Respiratory: Clear; No Wheezes, Rales or Rhonchi
Cardiac: S1/S2 and Regular Rhythm; No Murmur, Rub, Gallop or Peripheral Edema
GI: Soft, Non Tender, Non Distended and Normal Bowel Sounds
Musculoskeletal: right elbow swelling and chronic contracture, Lower ext b/l dressing clean dry intact
Neuro: Nonverbal, communicating with head gestures, follows simple commands
Psych: appears relatively Calm
30M Tobacco chronic IVDA (Fentanyl Tranq), right elbow chronic osteomyelitis, LLE chronic wound w underlying chronic osteomyelitis. Attempted to go to to his rehab facility but was refused admission due to treatment for his wounds. He is
reportedly still using IV drugs and injecting into the wounds in his leg. Currently staying in a [facility] in [place].he was brought here by support personnel who have been following him for the last year. He had prior admission for sepsis with
multiple organ failure, necrotizing cellulitis affecting wounds lower extremities b/l. He was also treated for pneumonia required intubation and pressure support. He required debridement of lower extremity wounds to his left leg in April 2023.
He was recommended to have surgery on his right elbow but never followed up with treatment. He was also treated for anemia received 2 units of blood transfusion and IV iron for iron deficiency. He
#Anemia likely blood loss from wounds (possible acute blood loss vs chronic blood loss) and Anemia of Chronic disease
-Hgb 5.3 responded well to 2PRBC transfusion
-Iron study reviewed
-Monitor H&H, stable at this time since transfusions as above
#FX right elbow secondary recent fall with OSTEO
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
#History of osteomyelitis of the right elbow joint (chronic)
Was advised in October needed follow-up but did not obtain
- ESR 135, blood cultures x 2 NGTD
- xray right elbow:Redemonstrate changes related to chronic osteomyelitis with extensive deformity and fragmentation of the proximal ulna and radius with chronic subluxation of the elbow joint articulations. progressed from prior. A component of
superimposed acute osteomyelitis is difficult to exclude radiographically. No obvious acute erosive component. Moderate soft tissue swelling about the elbow redemonstrated. No definite joint effusion.
- Consult Orthopedic Appreciated no surgical intervention recommended at this time. May require above elbow amputation if continues to worsen despite abx
#Left lower extremity entire anterior santos open wound with OSTEO from IVDA
#History of debridement October 2024 due to necrotizing soft tissue infection
- Tib fib xray LLE: Extensive chronic appearing cortical thickening/sclerosis and periosteal reaction along the tibia and fibula diaphyses, likely reflecting chronic osteomyelitis. Soft tissue irregularity noted along the anterior lower leg. No
acute fractures or dislocation. Partially visualized regional joints are grossly unremarkable.
- Consult surgery appreciated wound infection not amenable to debridement, risk of limb loss
- empirically treated with IV Zosyn IV vancomycin
- Consult ID appreciated abx held for IR bone bx 06/07/25, empiric Cipro Augmentin started after bx, risk of outpatient IV antibiotics unacceptably high
- follow bone bx cx's
- IR eval appreciated
- Wound care eval appreciated
#Polysubstance abuse IVDA
#Anxiety/depression
#Hypertensive urgency likely 2/2 opiate withdrawal
History UDS positive for fentanyl, cocaine, and marijuana october 2024
Patient has been injecting fentanyl/Tranq in his wound approximately 12 times a day total used 24 bags daily
Last use 06/05/2025
transferred to IMU for closer monitoring 06/06
Opiate withdrawal protocol Oxycontin Belbuca Subutex taper PRN oxycodone, tizanidine, subutex
Clonidine 0.1 mg BID w/ holding parameters, increased to 0.2 mg TID w/ start 0.3 mg Clonidine patch 06/07 to encourage compliance
Labetalol prn SBP>180 or DBP>100
06/08 remained in severe opiate withdrawal, agitated refusing meds/labs/examination, associate hypertensive urgency, Transferred to ICU for benefit precedex gtt 06/08
precedex helps w/ withdrawal from zylazine/medetomidine, notable improvement in bp following start of precedex gtt
Patient since weaned off precedex gtt stable for downgrade back to IMU 06/10 blood pressure remains uncontrolled but at this time likely 2/2 opiate withdrawal as per ICU
Amlodipine 2.5 mg daily added, gradually titrated up to 10 mg daily (patient was discharged on 10 mg daily last hospitalization)
check Renal Artery Duplex
#Active smoker/Vaping
reportedly Half a pack a day
Initially accepted nicotine supplementation, now refusing
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
Dietary consult appreciated
#Hypomagnesemia
monitor and replete as necessary
DVT Prophylaxis:scd right leg, refusing Lovenox
Code Status: Full Code
Stable for downgrade to IMU
discussed with pt and pt's mother Adriana
I spent a total of 50 minutes with the patient or on the floor. More than 50% of this time involved counseling and coordination of care.
Anticipated Discharge: > 48 hours
Subjective/Interval History
-
Date of Service: June 10, 2025
No acute distress, appears comfortable at this time. Calm and cooperative but remains largely nonverbal.
Objective Data
-
Labs:
Laboratory Results
06/10/25
03:51
WBC 6.6
Hgb 9.1 L
Hct 29.6 L
Plt Count 475 H
Sodium 141
Potassium 5.0
Chloride 109 H
Carbon Dioxide 20 L
BUN 27 H
Creatinine 1.3
Glucose 93
Calcium 8.6
Total Bilirubin 0.5
AST 18
ALT 14
Alkaline Phosphatase 437 H
Vital Signs:
Vital Signs
Temp Pulse Resp BP Pulse Ox
98.6 F 87 13 163/102 97
06/10/25 03:15 06/10/25 04:30 06/10/25 04:30 06/10/25 04:30 06/10/25 04:30
I&O
06/09/25 06/10/25 06/11/25
06:59 06:59 06:59
Intake Total 240 / 242.6 247.8 / 247.8
Output Total 1400 / 1400 1150 / 1150
Balance -1160 / -1157.4 -902.2 / -902.2
[2025-06-10] MEDS: CATAPRES 0.2 MG PO (07:50)
[2025-06-10] MEDS: VITAMIN B-12 1000 MCG PO (07:50)
[2025-06-10] MEDS: CIPRO 750 MG PO ×2 (07:50→20:07)
[2025-06-10] MEDS: NORVASC 10 MG PO (07:50)
[2025-06-10] MEDS: TYLENOL 1000 MG PO (07:51)
[2025-06-10] MEDS: AUGMENTIN 875 MG/125 MG 1 TABLET PO ×2 (07:51→20:07)
[2025-06-10] MEDS: SUBUTEX 8 MG SL ×2 (07:51→20:07)
[2025-06-10] MEDS: DAKIN'S SOLUTION 0.125% 1/4 STRENGTH 473 ML TOPICAL (07:52)
--- NOTE | 2025-06-10 09:34 | W.PN.INTV ---
Today's Communication / Plan
Recommendations
- Weaned off Precedex infusion
- Uptitrate antihypertensives as needed
- Patient can be transferred out of ICU to IMU
- [employer] Rec[employer]iter service will sign off, please call as needed
Assessment
-
Patient is a 38-year-old M with a PMH notable for IVDU (fentanyl, xylazine, heroin), hepatitis C, chronic R elbow & LLE wounds (s/p admission 10/2024 for sepsis 2/2 necrotizing infection from LLE), who presented to ED on 06/05 from rehab facility
due to ongoing LLE necrotizing skin infection, into which he has continued to inject drugs. Admission has been complicated by acute opioid withdrawal precipitated by patient refusal to take meds, along with associated hypertensive urgency (BP
190s/120s). Patient transferred to ICU/sole cutter consulted on 06/08 due to worsening of withdrawal sx and potential benefit of Precedex infusion. Course/plan as below.
Overview 06/10. Patient awake, alert, no tremors noted today. Precedex weaned off, saturating well on room air
#Polysubstance IVDU
#Anxiety/depression
Patient with a history of polysubstance IVDU, including fentanyl and xylazine. Most recent injections 06/05 into LLE. Per hospitalist note, patient using 24 bags daily of fentanyl/xylazine. Has had worsening opioid withdrawal symptoms over course
of this admission given lack of compliance with COWs protocol medications. On admission to ICU, patient with depressed mental status/somnolent, minimally responsive although able to follow basic commands. Denying any pain.
- Clinically improved, awake, alert, cooperative this morning. No tremors or shakes noted. No diaphoresis, tachycardia or tachypnea. Weaned off Precedex infusion
- Buprenorphine 8mg bid, per protocol
- Oxycodone 20 mg q8h, per protocol
- Clonidine 0.2mg tid
- Clonidine transdermal patch
- Tylenol 1 g q8h
- PRNs: Zofran, tizanidine 2 mg q6h, oxycodone 20 mg, add PRN bowel regimen
#Hypertensive urgency likely exacerbated by withdrawal
- Did not require Cardene infusion. Currently patient is awake, comfortable, without tremors or other signs of withdrawal. At this point recommend treating for underlying hypertension, do not think withdrawal is active at this point in
contributing to hypertension.
#Malnutrition
Patient chronically malnourished in the setting of IVDU, intermittent homelessness.
- Continue B12
- Mgmt per primary team
#Osteomyelitis of L tibia
#Chronic necrotizing SSTI of LLE
#Chronic osteomyelitis of R humerus
Patient with recent debridement of LLE wounds during October - November 2024 admission. X-rays this admission demonstrate ongoing osteomyelitis of both sites. Bone biopsy of both sites 06/07 completed, tissue biopsy results pending. Blood cultures
this admission negative.
- Continue empiric ciprofloxacin twice daily 750 mg and amox-clav q12h
- Follow-up on biopsy cultures
- ID following, appreciate recs
- Mgmt per primary team
#Tobacco use
Patient is an active smoker. Unclear how much.
- Nicotine patch
#Global
- DVT PPx: lovenox
- Diet: Regular
- Code: Full
- Dispo: Downgrade to IMU once Precedex gtt off
Critical Care time 36 mins -- The patient is admitted for acute critical illness for the treatment of vital organ failure and/or prevention of further life-threatening conditions. Total care includes time spent in review of history, physical exam,
medications, hemodynamic/ventilator parameters, laboratory data, imaging and discussion with house staff, pharmacy, respiratory therapy, manager combination, and nursing.
Subjective Dataa
Subjective Data
Date of Service:
Date of Service: June 10, 2025
Subjective:
Comfortably sitting in bed in no acute distress.
Review of Systems
Genitourinary: Other (All 14 systems reviewed and negative except as stated above in the history of present illness.)
Objective Data
Data Reviewed
Vital Signs / I&O / Oxygen:
Vital Signs
Temp Pulse Resp BP Pulse Ox
98.4 F 97 12 165/107 98
06/10/25 07:17 06/10/25 09:00 06/10/25 09:00 06/10/25 09:00 06/10/25 07:30
Intake and Output
06/09/25 06/10/25 06/11/25
06:59 06:59 06:59
Intake Total 240 / 242.6 247.8 / 247.8 360 / 360
Output Total 1400 / 1400 1150 / 1400 450 / 450
Balance -1160 / -1157.4 -902.2 / -1152.2 -90 / -90
SaO2 98
Physical Exam
General: Comfortable
HEENT: Normocephalic
Cardiovascular: S1-S2
Respiratory: Clear and Non-Labored Respirations
GI: Soft and Non Distended
Neurology: Awake and Alert
Skin: Warm
Labs/Micro/Reports
Lab Data
06/10/25 03:51
06/10/25 03:51
Microbiology
06/07/25 11:45 Tibia Tissue Culture - Preliminary
Coagulase neg. staphylococcus
06/07/25 11:45 Tibia Gram Stain - Preliminary
06/07/25 11:45 Other-Please specify - Other Tissue Culture - Final
No Growth After 72 Hours
06/07/25 11:45 Other-Please specify - Other Gram Stain - Final
06/05/25 21:15 Blood/Venous Blood Culture - Preliminary
No Growth in 4 days- Final report to follow
06/05/25 20:34 Blood/Venous Blood Culture - Preliminary
No Growth in 4 days- Final report to follow
06/06/25 14:46 Nose MRSA Screen - Final
No Methicillin Resistant Staphylococcus aureus isolated.
--- NOTE | 2025-06-10 09:46 | W.PN.ID1 ---
Date of Service
Date of Service: June 10, 2025
Today's Communication
Continue Augmentin/Cipro.
Assessment / Plan
# Right Elbow Chronic Osteomyelitis
- s/p bone biopsy for culture with IR - follow for culture
- joint is already destroyed, antibiotics will not restore function
- risk of outpatient IV antibiotics includes misuse of the line and , and is unacceptably high. Attempting oral combination of ciprofloxacin and augmentin pending bone biopsy results
- antibiotics could be shelter for suppression if we are able to find an effective regimen.
- patient remains at high risk of limb loss, especially given ongoing IVDA
# Left Lower Extremity Wound with underlying chronic osteomyelitis
- s/p bone biopsy for culture with IR - follow for culture
- has a midline; to be removed before d/c
- risk of outpatient IV antibiotics includes misuse of the line and is unacceptably high, we will attempt the oral combination of ciprofloxacin and augmentin pending bone biopsy results
- antibiotics could be rodent exterminator for suppression if we are able to find an effective regimen
- risk of limb loss is high particularly if unable to heal the wound and if continued IVDA.
# Hep C
����������������������������������������������������������
Chief Complaint
-: Other (chronic osteomyelitis right elbow, right tibia. Chronic wounds.)
Subjective / Review of Systems
Review of Systems: No Fever and No Chills
Vital Signs / Physical Exam
Vital Signs
Vital Signs
Temp Pulse Resp BP Pulse Ox
98.4 F 97 12 165/107 98
06/10/25 07:17 06/10/25 09:00 06/10/25 09:00 06/10/25 09:00 06/10/25 07:30
Physical Exam
Constitutional: No Acute Distress, Comfortable, Chronically Ill, Non-toxic and Cachetic (mild)
Eyes: No Conjunctival Hemorrhage
Cardiovascular: Regular Rate and S1/S2; Negative S3/S4 or Murmur
Pulmonary: Clear, Symmetric and Non Labored; Negative Wheezes or Rales
Gastrointestinal: Soft, Non Tender, Non Distended and Normal Bowel Sounds
Skin: Warm and Dry; Negative Rash or Jaundice
Wound: Other (B/L LE's wrapped in KENRICK. Wound photos reviewed.)
Psychological: Calm
Objective Data
Lab Data
Lab Results
06/10/25 03:51
06/10/25 03:51
ESR 135 mm/hour (0-20) H 06/05/25 20:34
PT 18.6 Sec (11.4-14.6) H 06/05/25 20:34
INR 1.53 06/05/25 20:34
APTT 46.1 Sec (23.4-35.0) H 06/05/25 20:34
Estimated Creat Clear 59 ml/min 06/10/25 03:51
Lactic Acid 1.8 mmol/L (0.7-2.0) 06/05/25 20:34
Total Bilirubin 0.5 mg/dl (0.2-1.3) 06/10/25 03:51
AST 18 U/L (17-59) 06/10/25 03:51
ALT 14 U/L (0-50) 06/10/25 03:51
Alkaline Phosphatase 437 U/L (38-126) H 06/10/25 03:51
C-Reactive Protein 54.20 mg/L (0.0-10.00) H 06/05/25 20:34
Most recent labs reviewed.
Micro Results:
06/07/25 11:45 Tissue Culture - Preliminary
Tibia Coagulase neg. staphylococcus
Gram Stain - Preliminary
06/07/25 11:45 Tissue Culture - Final
Other-Please specify - Other No Growth After 72 Hours
Gram Stain - Final
06/05/25 21:15 Blood Culture - Preliminary
Blood/Venous No Growth in 4 days- Final report to follow
06/05/25 20:34 Blood Culture - Preliminary
Blood/Venous No Growth in 4 days- Final report to follow
06/06/25 14:46 MRSA Screen - Final
Nose No Methicillin Resistant Staphylococcus aureus isolated.
Imaging:
06/05/2025 X-ray left tibia/fibula: extensive chronic appearing cortical thickening/sclerosis and periosteal reaction along the tibia and fibula diaphysis, likely reflecting chronic osteomyelitis. Soft tissue irregularity noted along the anterior
lower leg. No acute fracture or dislocation. Partially visualized regional joints are grossly unremarkable. Please see full dictation for additional detail.
06/05/2025 X-ray right elbow: Redemonstration of changes related to chronic osteomyelitis with extensive deformity and fragmentation of the proximal ulna and radius with chronic subluxation of the elbow joint articulations, progressed from prior. A
component of superimposed acute osteomyelitis is difficult to exclude radiographically. No obvious acute erosive component. Moderate soft tissue swelling about the elbow redemonstrated. No definite joint effusion.
--- NOTE | 2025-06-10 10:20 | PTCARENOTE ---
Rec'd pt at 0700. Pt AAOx3, calm and cooperative. Monitor SR. SBP 150-170's, taking on pt's right thigh d/t wounds on extremities and AJ midline. Downgraded to IMU LOC.
[2025-06-10] MEDS: TYLENOL PO ×2 (16:32→23:08)
--- NOTE | 2025-06-10 20:00 | PTCARENOTE ---
Pt received drowsy, flat affect. Denies pain. Assessment as charted.
[2025-06-11] VITALS (14 sets, daily range): BP systolic 144–179; BP diastolic 79–122; BMI 16.6
[2025-06-11 05:03] LABS: Hematocrit 30.7 % (39.0-52.0); Hemoglobin 9.6 g/dL (13.0-18.0); Mean Corp Hgb Conc. 31.3 g/dL (33.0-37.0); Mean Corpuscular Volume 71.6 fL (80.0-94.0); Platelet Count 529 10^3/uL (130-400); Red Cell Dist. Width 23.9 % (11.5-14.5)
[2025-06-11 05:17] LABS: Blood Urea Nitrogen 25 mg/dl (9-20); Calcium 8.9 mg/dl (8.4-10.2); Carbon Dioxide 20 mmol/L (22-30); Chloride 109 mmol/L (98-107); Estimated Creatinine Clearance 69 ml/min; Glucose 99 mg/dl (70-99); Magnesium 1.7 mg/dl (1.6-2.3); Potassium 4.8 mmol/L (3.5-5.1); Sodium 137 mmol/L (135-145); eGFR > 60.00
[2025-06-11] MEDS: TRANDATE 10 MG IV (06:13)
--- NOTE | 2025-06-11 06:31 | PTCARENOTE ---
Pt slept well during night. Med x2 with labetolol for elevated BP. Denies pain.
[2025-06-11] MEDS: AUGMENTIN 875 MG/125 MG 1 TABLET PO (08:07)
[2025-06-11] MEDS: CIPRO 750 MG PO ×2 (08:08→20:18)
[2025-06-11] MEDS: SUBUTEX 8 MG SL (08:08)
[2025-06-11] MEDS: VITAMIN B-12 1000 MCG PO (08:09)
[2025-06-11] MEDS: NORVASC 10 MG PO (08:09)
[2025-06-11] MEDS: TYLENOL 1000 MG PO ×2 (08:09→16:09)
[2025-06-11] MEDS: DAKIN'S SOLUTION 0.125% 1/4 STRENGTH 473 ML TOPICAL (08:10)
--- NOTE | 2025-06-11 08:52 | W.PN.HOSP.TC ---
Today's Communication/Plan
-
abx as per ID
blood pressure control, Lisinopril 5 mg daily added
Check renal Artery Duplex
opiate withdrawal protoxol
Assessment / Plan
Assessment / Plan
Physical Exam
General: no acute distress, appears comfortable at this time
HEENT: NormoCephalic, Anicteric, Dilated pupils reactive , missing teeth
Respiratory: Clear; No Wheezes, Rales or Rhonchi
Cardiac: S1/S2 and Regular Rhythm; No Murmur, Rub, Gallop or Peripheral Edema
GI: Soft, Non Tender, Non Distended and Normal Bowel Sounds
Musculoskeletal: right elbow swelling and chronic contracture, Lower ext b/l dressing clean dry intact
Neuro: Alert Conversant Coherent
Psych: Calm
30M Tobacco chronic IVDA (Fentanyl Tranq), right elbow chronic osteomyelitis, LLE chronic wound w underlying chronic osteomyelitis. Attempted to go to to his rehab facility but was refused admission due to treatment for his wounds. He is
reportedly still using IV drugs and injecting into the wounds in his leg. Currently staying in a fpc in [place].he was brought here by support personnel who have been following him for the last year. He had prior admission for sepsis with
multiple organ failure, necrotizing cellulitis affecting wounds lower extremities b/l. He was also treated for pneumonia required intubation and pressure support. He required debridement of lower extremity wounds to his left leg in April 2023.
He was recommended to have surgery on his right elbow but never followed up with treatment. He was also treated for anemia received 2 units of blood transfusion and IV iron for iron deficiency. He
#Anemia likely blood loss from wounds (possible acute blood loss vs chronic blood loss) and Anemia of Chronic disease
-Hgb 5.3 responded well to 2PRBC transfusion
-Iron study reviewed
-Monitor H&H, stable at this time since transfusions as above
#FX right elbow secondary recent fall with OSTEO
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
#History of osteomyelitis of the right elbow joint (chronic)
Was advised in October needed follow-up but did not obtain
- ESR 135, blood cultures x 2 NGTD
- xray right elbow:Redemonstrate changes related to chronic osteomyelitis with extensive deformity and fragmentation of the proximal ulna and radius with chronic subluxation of the elbow joint articulations. progressed from prior. A component of
superimposed acute osteomyelitis is difficult to exclude radiographically. No obvious acute erosive component. Moderate soft tissue swelling about the elbow redemonstrated. No definite joint effusion.
- Consult Orthopedic Appreciated no surgical intervention recommended at this time. May require above elbow amputation if continues to worsen despite abx
#Left lower extremity entire anterior santos open wound with OSTEO from IVDA
#History of debridement October 2024 due to necrotizing soft tissue infection
- Tib fib xray LLE: Extensive chronic appearing cortical thickening/sclerosis and periosteal reaction along the tibia and fibula diaphyses, likely reflecting chronic osteomyelitis. Soft tissue irregularity noted along the anterior lower leg. No
acute fractures or dislocation. Partially visualized regional joints are grossly unremarkable.
- Consult surgery appreciated wound infection not amenable to debridement, risk of limb loss
- empirically treated with IV Zosyn IV vancomycin
- Consult ID appreciated abx held for IR bone bx 06/07/25, empiric Cipro Augmentin started after bx, risk of outpatient IV antibiotics unacceptably high
- follow bone bx cx's
- IR eval appreciated
- Wound care eval appreciated
#Polysubstance abuse IVDA
#Anxiety/depression
#Hypertensive urgency likely 2/2 opiate withdrawal
History UDS positive for fentanyl, cocaine, and marijuana october 2024
Patient has been injecting fentanyl/Tranq in his wound approximately 12 times a day total used 24 bags daily
Last use 06/05/2025
transferred to IMU for closer monitoring 06/06
Opiate withdrawal protocol Oxycontin Belbuca Subutex taper PRN oxycodone, tizanidine, subutex
Clonidine 0.1 mg BID w/ holding parameters, increased to 0.2 mg TID w/ start 0.3 mg Clonidine patch 06/07 to encourage compliance
Labetalol prn SBP>180 or DBP>100
06/08 remained in severe opiate withdrawal, agitated refusing meds/labs/examination, associate hypertensive urgency, Transferred to ICU for benefit precedex gtt 06/08
precedex helps w/ withdrawal from zylazine/medetomidine, notable improvement in bp following start of precedex gtt
Patient since weaned off precedex gtt stable for downgrade back to IMU 06/10 blood pressure remains uncontrolled but at this time not likely 2/2 opiate withdrawal as per ICU
Amlodipine 2.5 mg daily added, gradually titrated up to 10 mg daily (patient was discharged on 10 mg daily last hospitalization)
Lisinopril 5 mg daily added
Renal Artery Duplex appreciated no significant stenosis
psych eval requested
#Active smoker/Vaping
reportedly Half a pack a day
Initially accepted nicotine supplementation, now refusing
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
Dietary consult appreciated
#Hypomagnesemia
monitor and replete as necessary
DVT Prophylaxis:scd right leg, refusing Lovenox
Code Status: Full Code
Stable for downgrade to IMU
discussed with pt and pt's mother Adriana
I spent a total of 48 minutes with the patient or on the floor. More than 50% of this time involved counseling and coordination of care.
Anticipated Discharge: 24 - 48 hours
Subjective/Interval History
-
Date of Service: June 11, 2025
Seen and examined at bedside in no acute distress. Overall reports feeling well. Denies new acute issues at this time. patient inquiring about drug rehab.
Objective Data
-
Labs:
Laboratory Results
06/11/25
04:40
WBC 7.2
Hgb 9.6 L
Hct 30.7 L
Plt Count 529 H
Sodium 137
Potassium 4.8
Chloride 109 H
Carbon Dioxide 20 L
BUN 25 H
Creatinine 1.1
Glucose 99
Calcium 8.9
Vital Signs:
Vital Signs
Temp Pulse Resp BP Pulse Ox
98.1 F 94 15 161/106 98
06/11/25 07:29 06/11/25 08:11 06/11/25 08:11 06/11/25 08:11 06/10/25 20:00
I&O
06/10/25 06/11/25 06/12/25
06:59 06:59 06:59
Intake Total 247.8 / 247.8 1080 / 1080
Output Total 1150 / 1400 1600 / 1600
Balance -902.2 / -1152.2 -520 / -520
--- NOTE | 2025-06-11 08:55 | W.PN.ID1 ---
Addendum entered and electronically signed by Hali Boland MD 06/11/25 14:57:
Isolate resulted: MSSE
Will continue levofloxacin as high bioavailability oral therapy; plan to continue indefinitely.
Can stop augmentin.
Organism 1 Staphylococcus epidermidis
1. Staphylococcus epidermidis
M.I.C. RX
--------- ---
Amoxicillin/Potas. Clavulanate <=4/2 S
Ampicillin <=2 R
Clindamycin <=0.5 S
Ciprofloxacin <=1 S
Gentamicin <=4 S
Erythromycin >4 R
Levofloxacin <=1 S
Oxacillin <=0.25 S
Tetracycline <=4 S
Trimethoprim/Sulfamethoxazole >/38 R
Vancomycin 1 S
Original Note:
Date of Service
Date of Service: June 11, 2025
Today's Communication
s/p bone biopsy for culture with IR - culture with CONS - requested ID and sensi from micro lab, expected later today
Assessment / Plan
# Right Elbow Chronic Osteomyelitis
- s/p bone biopsy for culture with IR - follow for culture; while culture was negative it is likely that recent antibiotics suppressed the growth of bacteria - treatment will need to be empiric
- joint is already destroyed, antibiotics will not restore function
- may have to reconsider disposition and maintaining midline
- for the moment attempt the oral combination of ciprofloxacin and augmentin pending bone biopsy results
- antibiotics could be residential for suppression if we are able to find an effective regimen.
- risk of limb loss is high particularly if unable to heal the wound and if continued IVDA.
# Left Lower Extremity Wound with underlying chronic osteomyelitis
- s/p bone biopsy for culture with IR - culture with CONS - requested ID and sensi from micro lab, expected later today
- has a midline; to be removed before d/c
- may have to reconsider disposition and maintaining the line
- for the moment attempt the oral combination of ciprofloxacin and augmentin pending bone biopsy results
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
- risk of limb loss is high particularly if unable to heal the wound and if continued IVDA.
# Hep C
����������������������������������������������������������
Chief Complaint
-: Other (chronic osteomyelitis right elbow, right tibia. Chronic wounds.)
Subjective / Review of Systems
afebrile
bp stable
was transferred to the ICU for assistance with management of withdrawal, now stabilized
Vital Signs / Physical Exam
Vital Signs
Vital Signs
Temp Pulse Resp BP Pulse Ox
98.1 F 94 15 161/106 98
06/11/25 07:29 06/11/25 08:11 06/11/25 08:11 06/11/25 08:11 06/10/25 20:00
Physical Exam
Constitutional: No Acute Distress
Cardiovascular: Regular Rate and S1/S2; Negative Murmur or Rub
Pulmonary: Clear and Symmetric; Negative Wheezes or Rales
Gastrointestinal: Soft, Non Tender, Non Distended and Normal Bowel Sounds
Skin: Warm and Dry; Negative Rash or Jaundice
Objective Data
Lab Data
Lab Results
06/11/25 04:40
06/11/25 04:40
ESR 135 mm/hour (0-20) H 06/05/25 20:34
PT 18.6 Sec (11.4-14.6) H 06/05/25 20:34
INR 1.53 06/05/25 20:34
APTT 46.1 Sec (23.4-35.0) H 06/05/25 20:34
Estimated Creat Clear 69 ml/min 06/11/25 04:40
Lactic Acid 1.8 mmol/L (0.7-2.0) 06/05/25 20:34
Total Bilirubin 0.5 mg/dl (0.2-1.3) 06/10/25 03:51
AST 18 U/L (17-59) 06/10/25 03:51
ALT 14 U/L (0-50) 06/10/25 03:51
Alkaline Phosphatase 437 U/L (38-126) H 06/10/25 03:51
C-Reactive Protein 54.20 mg/L (0.0-10.00) H 06/05/25 20:34
Most recent labs reviewed.
Micro Results:
06/05/25 21:15 Blood Culture - Final
Blood/Venous No Growth - Final Report
06/05/25 20:34 Blood Culture - Final
Blood/Venous No Growth - Final Report
06/07/25 11:45 Tissue Culture - Preliminary
Tibia Coagulase neg. staphylococcus
Gram Stain - Preliminary
06/07/25 11:45 Tissue Culture - Final
Other-Please specify - Other No Growth After 72 Hours
Gram Stain - Final
06/06/25 14:46 MRSA Screen - Final
Nose No Methicillin Resistant Staphylococcus aureus isolated.
Imaging:
06/05/2025 X-ray left tibia/fibula: extensive chronic appearing cortical thickening/sclerosis and periosteal reaction along the tibia and fibula diaphysis, likely reflecting chronic osteomyelitis. Soft tissue irregularity noted along the anterior
lower leg. No acute fracture or dislocation. Partially visualized regional joints are grossly unremarkable. Please see full dictation for additional detail.
06/05/2025 X-ray right elbow: Redemonstration of changes related to chronic osteomyelitis with extensive deformity and fragmentation of the proximal ulna and radius with chronic subluxation of the elbow joint articulations, progressed from prior. A
component of superimposed acute osteomyelitis is difficult to exclude radiographically. No obvious acute erosive component. Moderate soft tissue swelling about the elbow redemonstrated. No definite joint effusion.
[2025-06-11] MEDS: ZESTRIL 5 MG PO (08:59)
--- NOTE | 2025-06-11 10:19 | PTCARENOTE ---
Assumed care of patient at 0700 this am. Pt drowsy on rounds. Pt assessment done after breakfast. Pt alert but flat and withdrawn. BP still elevated. Medications being adjusted. Pt allowed me to change dressings to BL leg dressings. SR on monitor
and occasionally tachy. Pt asking to speak with dr and mental health case manager about rehab placement.
--- NOTE | 2025-06-11 11:09 | CM ---
Addendum entered by Mal Moran 06/11/25 11:12:
Patient requesting inpatient [facility] re[facility]. [facility] notified and will visit patient.
Original Note:
R elbow and LLE chronic osteomyelitis, IV and PO AB. Bone biopsy of both sites. Pending results. Risk of both limb loss is high, particularly if unable to heal the wound and if continued IVDA.
--- NOTE | 2025-06-11 14:21 | PTCARENOTE ---
Pt remained NPO for lunch and went down for Renal US. Back in room now and ordered lunch. No C/O at this time. Mother was visiting earlier.
--- NOTE | 2025-06-11 20:15 | PTCARENOTE ---
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 ST HR low 100-1teens. L midline WNL. RA Sat 98%. pt refusing subutex at this time. POC discussed, call steinberg with pt.
[2025-06-11] MEDS: SUBUTEX SL (20:19)
[2025-06-12] VITALS (12 sets, daily range): BP systolic 141–169; BP diastolic 63–107; BMI 16.7
[2025-06-12] MEDS: TYLENOL PO (00:13)
--- NOTE | 2025-06-12 02:34 | PTCARENOTE ---
vss, no changes in assessment, pt for tx to IMU 3341.
[2025-06-12 03:35] LABS: Hematocrit 32.6 % (39.0-52.0); Hemoglobin 9.8 g/dL (13.0-18.0); Mean Corp Hgb Conc. 30.1 g/dL (33.0-37.0); Mean Corpuscular Volume 74.1 fL (80.0-94.0); Platelet Count 499 10^3/uL (130-400); Red Cell Dist. Width 23.9 % (11.5-14.5)
--- NOTE | 2025-06-12 03:35 | PTCARENOTE ---
Report received from Kia POND. Pt transferred to room 3341. Pt AAOx3, flat and withdrawn. Pt oriented to the unit. NSR to ST on the monitor HR up to 120's. Received pt on RA sat 98%. Pt denies any pain at this time. L midline WNL. b/l leg dressings
C/D/I. Assessment and vitals as charted see worklist. Call steinberg within reach.
[2025-06-12 03:51] LABS: Blood Urea Nitrogen 24 mg/dl (9-20); Calcium 8.9 mg/dl (8.4-10.2); Carbon Dioxide 20 mmol/L (22-30); Chloride 109 mmol/L (98-107); Estimated Creatinine Clearance 75 ml/min; Glucose 97 mg/dl (70-99); Magnesium 1.6 mg/dl (1.6-2.3); Potassium 4.3 mmol/L (3.5-5.1); Sodium 139 mmol/L (135-145); eGFR > 60.00
--- NOTE | 2025-06-12 08:11 | W.PN.HOSP.TC ---
Today's Communication/Plan
-
Metoprolol added for htn and tachycardia
prn Labetalol switched to prn Hydralazine
cont abx as per ID, 750 mg Cipro Life long
Planning for intp drug rehab when stable for discharge
Assessment / Plan
Assessment / Plan
Physical Exam
General: no acute distress, appears comfortable at this time
HEENT: NormoCephalic, Anicteric, Dilated pupils reactive , missing teeth
Respiratory: Clear; No Wheezes, Rales or Rhonchi
Cardiac: S1/S2 and Regular Rhythm; No Murmur, Rub, Gallop or Peripheral Edema
GI: Soft, Non Tender, Non Distended and Normal Bowel Sounds
Musculoskeletal: right elbow swelling and chronic contracture, Lower ext b/l dressing clean dry intact
Neuro: Alert Conversant Coherent
Psych: Calm
30M Tobacco chronic IVDA (Fentanyl Tranq), right elbow chronic osteomyelitis, LLE chronic wound w underlying chronic osteomyelitis. Attempted to go to to his rehab facility but was refused admission due to treatment for his wounds. He is
reportedly still using IV drugs and injecting into the wounds in his leg. Currently staying in a detention in [place].he was brought here by support personnel who have been following him for the last year. He had prior admission for sepsis with
multiple organ failure, necrotizing cellulitis affecting wounds lower extremities b/l. He was also treated for pneumonia required intubation and pressure support. He required debridement of lower extremity wounds to his left leg in April 2023.
He was recommended to have surgery on his right elbow but never followed up with treatment. He was also treated for anemia received 2 units of blood transfusion and IV iron for iron deficiency. He
#Anemia likely blood loss from wounds (possible acute blood loss vs chronic blood loss) and Anemia of Chronic disease
-Hgb 5.3 responded well to 2PRBC transfusion
-Iron study reviewed
-Monitor H&H, stable at this time since transfusions as above
#FX right elbow secondary recent fall with OSTEO
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
#History of osteomyelitis of the right elbow joint (chronic)
Was advised in October needed follow-up but did not obtain
- ESR 135, blood cultures x 2 NGTD
- xray right elbow:Redemonstrate changes related to chronic osteomyelitis with extensive deformity and fragmentation of the proximal ulna and radius with chronic subluxation of the elbow joint articulations. progressed from prior. A component of
superimposed acute osteomyelitis is difficult to exclude radiographically. No obvious acute erosive component. Moderate soft tissue swelling about the elbow redemonstrated. No definite joint effusion.
- Consult Orthopedic Appreciated no surgical intervention recommended at this time. May require above elbow amputation if continues to worsen despite abx
#Left lower extremity entire anterior santos open wound with OSTEO from IVDA
#History of debridement October 2024 due to necrotizing soft tissue infection
- Tib fib xray LLE: Extensive chronic appearing cortical thickening/sclerosis and periosteal reaction along the tibia and fibula diaphyses, likely reflecting chronic osteomyelitis. Soft tissue irregularity noted along the anterior lower leg. No
acute fractures or dislocation. Partially visualized regional joints are grossly unremarkable.
- Consult surgery appreciated wound infection not amenable to debridement, risk of limb loss
- empirically treated with IV Zosyn IV vancomycin
- bone bx cx appreciated staph epidermidis sensitivities appreciated, pathology appreciated Lt Tibia osteonecrosis, no osteomyelitis, Rt elbow acute on chronic osteomyelitis w/ focal osteonecrosis
- IR eval appreciated
- Consult ID appreciated abx held for IR bone bx 06/07/25, empiric Cipro Augmentin started after bx, risk of outpatient IV antibiotics unacceptably high, following bone bx culture results patient recommended to continue 750mg bid for 6 weeks
treatment then indefinitely for suppression (same dose)- essentially 750 mg Cipro BID for life.
- Wound care eval appreciated
#Polysubstance abuse IVDA
#Anxiety/depression
#Hypertensive urgency likely 2/2 opiate withdrawal
History UDS positive for fentanyl, cocaine, and marijuana october 2024
Patient has been injecting fentanyl/Tranq in his wound approximately 12 times a day total used 24 bags daily
Last use 06/05/2025
transferred to IMU for closer monitoring 06/06
Opiate withdrawal protocol Oxycontin Belbuca Subutex taper PRN oxycodone, tizanidine, subutex
Clonidine 0.1 mg BID w/ holding parameters, increased to 0.2 mg TID w/ start 0.3 mg Clonidine patch 06/07 to encourage compliance
06/08 remained in severe opiate withdrawal, agitated refusing meds/labs/examination, associate hypertensive urgency, Transferred to ICU for benefit precedex gtt 06/08
precedex helps w/ withdrawal from zylazine/medetomidine, notable improvement in bp following start of precedex gtt
Patient since weaned off precedex gtt stable for downgrade back to IMU 06/10 blood pressure remains uncontrolled but at this time not likely 2/2 opiate withdrawal as per ICU
Amlodipine 2.5 mg daily added, gradually titrated up to 10 mg daily (patient was discharged on 10 mg daily last hospitalization)
Lisinopril 5 mg daily added
Metoprolol XL 25mg daily added w/ persistent tachycardia
Labetalol prn switched to Hydralazine prn SBP>160 or DBP>100
Renal Artery Duplex appreciated no significant stenosis
Case mgmt consult appreciated planned for inpt drug rehab when medically stable for discharge.
psych eval requested
#Active smoker/Vaping
reportedly Half a pack a day
Initially accepted nicotine supplementation, since refused
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
Dietary consult appreciated
#Hypomagnesemia
monitor and replete as necessary
DVT Prophylaxis: Lovenox
Code Status: Full Code
discussed with pt and pt's mother Adriana
I spent a total of 40 minutes with the patient or on the floor. More than 50% of this time involved counseling and coordination of care.
Anticipated Discharge: 24 - 48 hours
Subjective/Interval History
-
Date of Service: June 12, 2025
No acute distress, appears comfortable at this time. Significantly more calm and cooperative compared to earlier in hospitalization. Remains interested in inpt drug rehab.
Objective Data
-
Labs:
Laboratory Results
06/12/25
03:19
WBC 7.3
Hgb 9.8 L
Hct 32.6 L
Plt Count 499 H
Sodium 139
Potassium 4.3
Chloride 109 H
Carbon Dioxide 20 L
BUN 24 H
Creatinine 1.0
Glucose 97
Calcium 8.9
Vital Signs:
Vital Signs
Temp Pulse Resp BP Pulse Ox
97.9 F 123 17 169/107 99
06/12/25 07:32 06/12/25 06:00 06/12/25 06:00 06/12/25 06:00 06/12/25 06:00
I&O
06/11/25 06/12/25 06/13/25
06:59 06:59 06:59
Intake Total 1080 / 1080 480 / 480
Output Total 1600 / 1600 1100 / 1100
Balance -520 / -520 -620 / -620
[2025-06-12] MEDS: CIPRO 750 MG PO ×2 (08:44→19:30)
[2025-06-12] MEDS: ZESTRIL 5 MG PO (08:45)
[2025-06-12] MEDS: SUBUTEX 8 MG SL ×2 (08:45→19:30)
[2025-06-12] MEDS: NORVASC 10 MG PO (08:45)
[2025-06-12] MEDS: TYLENOL 1000 MG PO ×2 (08:45→17:17)
--- NOTE | 2025-06-12 09:24 | W.PN.ID1 ---
Date of Service
Date of Service: June 12, 2025
Today's Communication
- has a midline; to be removed before d/c
- risks of outpatient IV antibiotics (missuse of line, ) unacceptably high, plan course of high bioavailability orals (ciprofloxacin) directed at the identified pathogen MSSE
- continue the oral ciprofloxacin for 6 weeks and then indefinitely for suppression
- risk of limb loss is high particularly if unable to heal the wound and if continued IVDA.
- stable for dc from ID perspective
Assessment / Plan
# Right Elbow Chronic Osteomyelitis
- s/p bone biopsy for culture with IR - finalized negative
- pathology pending
- joint is already destroyed, antibiotics will not restore function
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
- antibiotics could be custodial for suppression if we are able to find an effective regimen.
- risk of limb loss is high particularly if unable to heal the wound and if continued IVDA.
# Left Lower Extremity Wound with underlying chronic osteomyelitis
- s/p bone biopsy for culture with IR - culture with CONS - sensitive to ciprofloxacin
- continue wound care
- pathology pending
- has a midline; to be removed before d/c
- risks of outpatient IV antibiotics (missuse of line, ) unacceptably high, plan course of high bioavailability orals (ciprofloxacin) directed at the identified pathogen MSSE
- continue the oral ciprofloxacin for 6 weeks and then indefinitely for suppression
- risk of limb loss is high particularly if unable to heal the wound and if continued IVDA.
- stable for dc from ID perspective
# Hep C
����������������������������������������������������������
Chief Complaint
-: Other (chronic osteomyelitis right elbow, right tibia. Chronic wounds.)
Subjective / Review of Systems
afebrile
bp stable
tolerating current therapies
Vital Signs / Physical Exam
Vital Signs
Vital Signs
Temp Pulse Resp BP Pulse Ox
97.9 F 126 17 160/100 99
06/12/25 07:32 06/12/25 08:42 06/12/25 08:42 06/12/25 08:45 06/12/25 06:00
Physical Exam
Constitutional: No Acute Distress
Cardiovascular: Regular Rate and S1/S2; Negative Murmur or Rub
Pulmonary: Clear and Symmetric; Negative Wheezes or Rales
Gastrointestinal: Soft, Non Tender, Non Distended and Normal Bowel Sounds
Skin: Warm and Dry; Negative Rash or Jaundice
Objective Data
Lab Data
Lab Results
06/12/25 03:19
06/12/25 03:19
ESR 135 mm/hour (0-20) H 06/05/25 20:34
PT 18.6 Sec (11.4-14.6) H 06/05/25 20:34
INR 1.53 06/05/25 20:34
APTT 46.1 Sec (23.4-35.0) H 06/05/25 20:34
Estimated Creat Clear 75 ml/min 06/12/25 03:19
Lactic Acid 1.8 mmol/L (0.7-2.0) 06/05/25 20:34
Total Bilirubin 0.5 mg/dl (0.2-1.3) 06/10/25 03:51
AST 18 U/L (17-59) 06/10/25 03:51
ALT 14 U/L (0-50) 06/10/25 03:51
Alkaline Phosphatase 437 U/L (38-126) H 06/10/25 03:51
C-Reactive Protein 54.20 mg/L (0.0-10.00) H 06/05/25 20:34
Most recent labs reviewed.
Micro Results:
06/07/25 11:45 Tissue Culture - Final
Tibia Staphylococcus epidermidis
Gram Stain - Final
06/05/25 21:15 Blood Culture - Final
Blood/Venous No Growth - Final Report
06/05/25 20:34 Blood Culture - Final
Blood/Venous No Growth - Final Report
06/07/25 11:45 Tissue Culture - Final
Other-Please specify - Other No Growth After 72 Hours
Gram Stain - Final
06/06/25 14:46 MRSA Screen - Final
Nose No Methicillin Resistant Staphylococcus aureus isolated.
Imaging:
06/05/2025 X-ray left tibia/fibula: extensive chronic appearing cortical thickening/sclerosis and periosteal reaction along the tibia and fibula diaphysis, likely reflecting chronic osteomyelitis. Soft tissue irregularity noted along the anterior
lower leg. No acute fracture or dislocation. Partially visualized regional joints are grossly unremarkable. Please see full dictation for additional detail.
06/05/2025 X-ray right elbow: Redemonstration of changes related to chronic osteomyelitis with extensive deformity and fragmentation of the proximal ulna and radius with chronic subluxation of the elbow joint articulations, progressed from prior. A
component of superimposed acute osteomyelitis is difficult to exclude radiographically. No obvious acute erosive component. Moderate soft tissue swelling about the elbow redemonstrated. No definite joint effusion.
[2025-06-12] MEDS: VITAMIN B-12 1000 MCG PO (13:04)
--- NOTE | 2025-06-12 15:36 | CM ---
F/U: ALEX Washington learned that I.D his signed off and that patient will go on oral Abx. ALEX Washington learned from RN that patient had a procedure today and nothing more. Now Medical Team could be finish with the patient soon. ALEX Washington spoke to B[facility]ITA who
is working on a Inpatient D&A Rehab where they can provide some medical care/ wound care, likely [place] or [place]. Patient would have to have Hospitalist sign off in order for [facility] to search for a bed because once a bed is available, the
patient should move to obtain that bed. CM to follow up on DC date. PLAN: Inpatient D&A Rehab w./ medical care.
--- NOTE | 2025-06-12 16:46 | CS.PSYCHR ---
Consult Summary - Psychiatry
-
pt seen in consultation for complaints of opiate use disorder, desire for rehab
30 yo man came to ED due to worsening wounds from IVDA with xylazine. Has apparent chronic osteomyelitis, is at risk of losing leg. Pt reports desire to get self straightened out, get and stay clean and sober.
Long history of drug use starting in high school, has been in and out of treatment programs, reports some months of sobriety after a stay at [facility]. Currently living in [facility] on the grounds of [facility] in
[place]; is here in [place] because mother is here.
Born and raised in [place], denies legal entanglements, no children, no relationships.
States he feels worn out, but wants to leave as soon as possible.
Emaciated appearance, multiple dresses wounds on both legs and arms. Lying in bed, poor eye contact, speech monotone. Poor insight and judgment, denies suicidal thoughts. No gross cognitive deficits, no signs of psychosis
Impression: Opioid use disorder, severe
Rec: Wants to be on methadone, would honor this request unless it will complicate placement in rehab (methadone more likely to help with degree of purity of current street drug market.)
[2025-06-12] MEDS: DAKIN'S SOLUTION 0.125% 1/4 STRENGTH 473 ML TOPICAL (17:16)
[2025-06-12] MEDS: TOPROL XL 12.5 MG PO (17:17)
--- NOTE | 2025-06-12 17:20 | PTCARENOTE ---
Patien refused dose of lovnox, patient was educated about rational for mediction. He stated that it will make him nauseous.patient was out of bd to chair and ambulated in room with nurse. Due to leg wound SCDs are not appropriate.
--- NOTE | 2025-06-12 22:31 | PTCARENOTE ---
Assumed care for patient overnight. Pt in better spirits today. Pt AAOx3. Pt denies any pain or discomfort at this time. NSR to ST on the monitor. Pt took all medication, no issue. 98% on RA. Assessment and vitals as charted. Call steinberg is within
reach.
[2025-06-13] VITALS (8 sets, daily range): BP systolic 129–157; BP diastolic 67–86; BMI 15.7
[2025-06-13] MEDS: TYLENOL PO ×2 (00:30→23:02)
[2025-06-13 06:07] LABS: Blood Urea Nitrogen 25 mg/dl (9-20); Calcium 9.3 mg/dl (8.4-10.2); Carbon Dioxide 20 mmol/L (22-30); Chloride 109 mmol/L (98-107); Estimated Creatinine Clearance 69 ml/min; Glucose 89 mg/dl (70-99); Potassium 5.0 mmol/L (3.5-5.1); Sodium 136 mmol/L (135-145); eGFR > 60.00
[2025-06-13] MEDS: NORVASC 10 MG PO (08:19)
[2025-06-13] MEDS: SUBUTEX 8 MG SL ×2 (08:19→19:51)
[2025-06-13] MEDS: VITAMIN B-12 1000 MCG PO (08:19)
[2025-06-13] MEDS: CIPRO 750 MG PO ×2 (08:20→19:51)
[2025-06-13] MEDS: TOPROL XL 25 MG PO (08:21)
[2025-06-13] MEDS: DAKIN'S SOLUTION 0.125% 1/4 STRENGTH 1 ML TOPICAL (08:22)
[2025-06-13] MEDS: TYLENOL 1000 MG PO ×2 (08:22→16:28)
--- NOTE | 2025-06-13 08:53 | W.PN.ID1 ---
Date of Service
Date of Service: June 13, 2025
Today's Communication
continue ciprofloxacin
Assessment / Plan
# Right Elbow Chronic Osteomyelitis
- s/p bone biopsy for culture with IR - finalized negative
- pathology pending
- joint is already destroyed, antibiotics will not restore function
- continue ciprofloxacin - this will be [employer]
- risk of limb loss is high particularly if continued IVDA.
# Left Lower Extremity Wound with underlying chronic osteomyelitis
- s/p bone biopsy for culture with IR - culture with CONS - sensitive to ciprofloxacin
- continue wound care
- pathology pending
- has a midline; to be removed before d/c
- risks of outpatient IV antibiotics (missuse of line, ) unacceptably high, plan course of high bioavailability orals (ciprofloxacin) directed at the identified pathogen MSSE
- continue the oral ciprofloxacin for 6 weeks and then indefinitely for suppression
- risk of limb loss is high particularly if unable to heal the wound and if continued IVDA.
- stable for dc from ID perspective
# Hep C
����������������������������������������������������������
Chief Complaint
-: Other (chronic osteomyelitis right elbow, right tibia. Chronic wounds.)
Subjective / Review of Systems
afebrile
bp stable
tolerating current therapies
Vital Signs / Physical Exam
Vital Signs
Vital Signs
Temp Pulse Resp BP Pulse Ox
98.1 F 128 18 156/85 98
06/13/25 03:41 06/13/25 08:21 06/13/25 06:00 06/13/25 08:21 06/13/25 06:00
Physical Exam
Constitutional: No Acute Distress and Cachetic
Cardiovascular: Regular Rate and S1/S2; Negative Murmur or Rub
Pulmonary: Clear and Symmetric; Negative Wheezes or Rales
Gastrointestinal: Soft, Non Tender, Non Distended and Normal Bowel Sounds
Extremities: Other (leg dressing clean, dry, intact )
Skin: Warm and Dry; Negative Rash or Jaundice
Objective Data
Lab Data
Lab Results
06/12/25 03:19
06/13/25 05:29
ESR 135 mm/hour (0-20) H 06/05/25 20:34
PT 18.6 Sec (11.4-14.6) H 06/05/25 20:34
INR 1.53 06/05/25 20:34
APTT 46.1 Sec (23.4-35.0) H 06/05/25 20:34
Estimated Creat Clear 69 ml/min 06/13/25 05:29
Lactic Acid 1.8 mmol/L (0.7-2.0) 06/05/25 20:34
Total Bilirubin 0.5 mg/dl (0.2-1.3) 06/10/25 03:51
AST 18 U/L (17-59) 06/10/25 03:51
ALT 14 U/L (0-50) 06/10/25 03:51
Alkaline Phosphatase 437 U/L (38-126) H 06/10/25 03:51
C-Reactive Protein 54.20 mg/L (0.0-10.00) H 06/05/25 20:34
Most recent labs reviewed.
Micro Results:
06/07/25 11:45 Tissue Culture - Final
Tibia Staphylococcus epidermidis
Gram Stain - Final
06/05/25 21:15 Blood Culture - Final
Blood/Venous No Growth - Final Report
06/05/25 20:34 Blood Culture - Final
Blood/Venous No Growth - Final Report
06/07/25 11:45 Tissue Culture - Final
Other-Please specify - Other No Growth After 72 Hours
Gram Stain - Final
06/06/25 14:46 MRSA Screen - Final
Nose No Methicillin Resistant Staphylococcus aureus isolated.
Imaging:
06/05/2025 X-ray left tibia/fibula: extensive chronic appearing cortical thickening/sclerosis and periosteal reaction along the tibia and fibula diaphysis, likely reflecting chronic osteomyelitis. Soft tissue irregularity noted along the anterior
lower leg. No acute fracture or dislocation. Partially visualized regional joints are grossly unremarkable. Please see full dictation for additional detail.
06/05/2025 X-ray right elbow: Redemonstration of changes related to chronic osteomyelitis with extensive deformity and fragmentation of the proximal ulna and radius with chronic subluxation of the elbow joint articulations, progressed from prior. A
component of superimposed acute osteomyelitis is difficult to exclude radiographically. No obvious acute erosive component. Moderate soft tissue swelling about the elbow redemonstrated. No definite joint effusion.
[2025-06-13] MEDS: ZESTRIL 5 MG PO (09:12)
--- NOTE | 2025-06-13 09:41 | PTCARENOTE ---
Rec'd pt this AM. Pt refused AM temperature, swatting at the PCT. RN provided redirection and feedback with firm limit setting. Pt cooperative with AM meds later
--- NOTE | 2025-06-13 12:45 | W.PN.HOSP.TC ---
Today's Communication/Plan
-
monitor bp
tx to tele
await placement
Cont abx
Assessment / Plan
Assessment / Plan
Physical Exam
General: no acute distress, appears comfortable at this time
HEENT: NormoCephalic, Anicteric, Dilated pupils reactive , missing teeth
Respiratory: Clear; No Wheezes, Rales or Rhonchi
Cardiac: S1/S2 and Regular Rhythm; No Murmur, Rub, Gallop or Peripheral Edema
GI: Soft, Non Tender, Non Distended and Normal Bowel Sounds
Musculoskeletal: right elbow swelling and chronic contracture, Lower ext b/l dressing clean dry intact
Neuro: Alert Conversant Coherent
Psych: Calm
30M Tobacco chronic IVDA (Fentanyl Tranq), right elbow chronic osteomyelitis, LLE chronic wound w underlying chronic osteomyelitis. Attempted to go to to his rehab facility but was refused admission due to treatment for his wounds. He is
reportedly still using IV drugs and injecting into the wounds in his leg. Currently staying in a care home in [place].he was brought here by support personnel who have been following him for the last year. He had prior admission for sepsis with
multiple organ failure, necrotizing cellulitis affecting wounds lower extremities b/l. He was also treated for pneumonia required intubation and pressure support. He required debridement of lower extremity wounds to his left leg in April 2023.
He was recommended to have surgery on his right elbow but never followed up with treatment. He was also treated for anemia received 2 units of blood transfusion and IV iron for iron deficiency. He
#Anemia likely blood loss from wounds (possible acute blood loss vs chronic blood loss) and Anemia of Chronic disease
-Hgb 5.3 responded well to 2PRBC transfusion
-Iron study reviewed
-Monitor H&H, stable at this time since transfusions as above
#FX right elbow secondary recent fall with OSTEO
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
#History of osteomyelitis of the right elbow joint (chronic)
Was advised in October needed follow-up but did not obtain
- ESR 135, blood cultures x 2 NGTD
- xray right elbow:Redemonstrate changes related to chronic osteomyelitis with extensive deformity and fragmentation of the proximal ulna and radius with chronic subluxation of the elbow joint articulations. progressed from prior. A component of
superimposed acute osteomyelitis is difficult to exclude radiographically. No obvious acute erosive component. Moderate soft tissue swelling about the elbow redemonstrated. No definite joint effusion.
- Consult Orthopedic Appreciated no surgical intervention recommended at this time. May require above elbow amputation if continues to worsen despite abx
#Left lower extremity entire anterior santos open wound with OSTEO from IVDA
#History of debridement October 2024 due to necrotizing soft tissue infection
- Tib fib xray LLE: Extensive chronic appearing cortical thickening/sclerosis and periosteal reaction along the tibia and fibula diaphyses, likely reflecting chronic osteomyelitis. Soft tissue irregularity noted along the anterior lower leg. No
acute fractures or dislocation. Partially visualized regional joints are grossly unremarkable.
- Consult surgery appreciated wound infection not amenable to debridement, risk of limb loss
- empirically treated with IV Zosyn IV vancomycin
- bone bx cx appreciated staph epidermidis sensitivities appreciated, pathology appreciated Lt Tibia osteonecrosis, no osteomyelitis, Rt elbow acute on chronic osteomyelitis w/ focal osteonecrosis
- IR eval appreciated
- Consult ID appreciated abx held for IR bone bx 06/07/25, empiric Cipro Augmentin started after bx, risk of outpatient IV antibiotics unacceptably high, following bone bx culture results patient recommended to continue 750mg bid for 6 weeks
treatment then indefinitely for suppression (same dose)- essentially 750 mg Cipro BID for life.
- Wound care eval appreciated
#Polysubstance abuse IVDA
#Anxiety/depression
#Hypertensive urgency likely 2/2 opiate withdrawal
History UDS positive for fentanyl, cocaine, and marijuana october 2024
Patient has been injecting fentanyl/Tranq in his wound approximately 12 times a day total used 24 bags daily
Last use 06/05/2025
transferred to IMU for closer monitoring 06/06
Opiate withdrawal protocol Oxycontin Belbuca Subutex taper PRN oxycodone, tizanidine, subutex
Clonidine 0.1 mg BID w/ holding parameters, increased to 0.2 mg TID w/ start 0.3 mg Clonidine patch 06/07 to encourage compliance
06/08 remained in severe opiate withdrawal, agitated refusing meds/labs/examination, associate hypertensive urgency, Transferred to ICU for benefit precedex gtt 06/08
precedex helps w/ withdrawal from zylazine/medetomidine, notable improvement in bp following start of precedex gtt
Patient since weaned off precedex gtt stable for downgrade back to IMU 06/10 blood pressure remains uncontrolled but at this time not likely 2/2 opiate withdrawal as per ICU
Amlodipine 2.5 mg daily added, gradually titrated up to 10 mg daily (patient was discharged on 10 mg daily last hospitalization)
Lisinopril 5 mg daily added
Metoprolol XL 25mg daily added w/ persistent tachycardia
Labetalol prn switched to Hydralazine prn SBP>160 or DBP>100
Renal Artery Duplex appreciated no significant stenosis
Case mgmt consult appreciated planned for inpt drug rehab
psych eval requested-?Methadone. Unclear if it will clear hindrance for management at inpatient detox rehab.
BP improved
#Active smoker/Vaping
reportedly Half a pack a day
Initially accepted nicotine supplementation, since refused
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
Dietary consult appreciated
#Hypomagnesemia
monitor and replete as necessary
DVT Prophylaxis: Lovenox
Code Status: Full Code
Dispo- inpatient rehab. Cm aware. Medically stable for dc to rehab.
Anticipated Discharge: Within 24 hours
Subjective/Interval History
-
Date of Service: June 13, 2025
tolerating diet
no complaints
Objective Data
-
Labs:
Laboratory Results
06/13/25
05:29
Sodium 136
Potassium 5.0
Chloride 109 H
Carbon Dioxide 20 L
BUN 25 H
Creatinine 1.1
Glucose 89
Calcium 9.3
Vital Signs:
Vital Signs
Temp Pulse Resp BP Pulse Ox
98.3 F 91 10 156/85 98
06/13/25 11:39 06/13/25 12:00 06/13/25 12:00 06/13/25 09:12 06/13/25 06:00
I&O
06/12/25 06/13/25 06/14/25
06:59 06:59 06:59
Intake Total 480 / 480 540 / 540
Output Total 1100 / 1100 850 / 850
Balance -620 / -620 -310 / -310
--- NOTE | 2025-06-13 14:01 | PTCARENOTE ---
Pt downgraded to tele. call steinberg in reach, resting comfortably
--- NOTE | 2025-06-13 15:49 | CM ---
F/U: ALEX Washington met patient's mom and patient yesterday. Patient Tech had gave patient a shave and haircut, patient looked good. Today, patient is medically stable so [facility] is now working on a bed for either [place] or [place]. PLAN:
Inpatient D&A rehab.
[2025-06-13] MEDS: ZANAFLEX 2 MG PO (16:59)
--- NOTE | 2025-06-13 19:54 | W.PN.UPDATE ---
Update Note
Progress Note Update
pt seen for assessment, difficult to arouse, asks to be allowed to sleep. nursing reports that he has been rude to several staff members, had to be spoken to sharply to knock it off. apologized. remains in bed with multiple wounds, no significant
withdrawal symptoms on exam. plan is for rehab once medically stable (now on oral antibiotics)
[2025-06-14] VITALS (11 sets, daily range): BP systolic 100–162; BP diastolic 47–95; BMI 14.8
--- NOTE | 2025-06-14 04:59 | PTCARENOTE ---
Pt can be uncooperative at times, but did accept HS medications. VSS. Denies complaints/requests at this time. Call steinberg within reach.
[2025-06-14 06:13] LABS: Blood Urea Nitrogen 30 mg/dl (9-20); Calcium 9.2 mg/dl (8.4-10.2); Carbon Dioxide 16 mmol/L (22-30); Chloride 109 mmol/L (98-107); Estimated Creatinine Clearance 61 ml/min; Glucose 88 mg/dl (70-99); Potassium 5.1 mmol/L (3.5-5.1); Sodium 133 mmol/L (135-145); eGFR > 60.00
--- NOTE | 2025-06-14 08:50 | W.PN.ID1 ---
Date of Service
Date of Service: June 14, 2025
Today's Communication
- continue the oral ciprofloxacin for 6 weeks and then indefinitely for suppression
- stable for dc from ID perspective
Assessment / Plan
# Right Elbow Chronic Osteomyelitis
- s/p bone biopsy for culture with IR - finalized negative
- pathology pending
- joint is already destroyed, antibiotics will not restore function
- continue ciprofloxacin - this will be terminal carman
- risk of limb loss is high particularly if continued IVDA.
# Left Lower Extremity Wound with underlying chronic osteomyelitis
- s/p bone biopsy for culture with IR - culture with CONS - sensitive to ciprofloxacin
- continue wound care
- pathology pending
- has a midline; to be removed before d/c
- risks of outpatient IV antibiotics (missuse of line, ) unacceptably high, plan course of high bioavailability orals (ciprofloxacin) directed at the identified pathogen MSSE
- continue the oral ciprofloxacin for 6 weeks and then indefinitely for suppression
- risk of limb loss is high particularly if unable to heal the wound and if continued IVDA.
- stable for dc from ID perspective
# Hep C
����������������������������������������������������������
Chief Complaint
-: Other (chronic osteomyelitis right elbow, right tibia. Chronic wounds.)
Subjective / Review of Systems
afebrile
BP stable
tolerating current antibiotics
Vital Signs / Physical Exam
Vital Signs
Vital Signs
Temp Pulse Resp BP Pulse Ox
98.0 F 93 9 156/95 97
06/13/25 23:05 06/14/25 06:00 06/14/25 06:00 06/14/25 06:00 06/13/25 19:54
Physical Exam
Constitutional: No Acute Distress, Chronically Ill and Cachetic
Cardiovascular: Regular Rate
Pulmonary: Symmetric
Skin: Dry; Negative Rash or Jaundice
Physical Exam:
refused majority of physical exam today
Objective Data
Lab Data
Lab Results
06/12/25 03:19
06/14/25 05:30
ESR 135 mm/hour (0-20) H 06/05/25 20:34
PT 18.6 Sec (11.4-14.6) H 06/05/25 20:34
INR 1.53 06/05/25 20:34
APTT 46.1 Sec (23.4-35.0) H 06/05/25 20:34
Estimated Creat Clear 61 ml/min 06/14/25 05:30
Lactic Acid 1.8 mmol/L (0.7-2.0) 06/05/25 20:34
Total Bilirubin 0.5 mg/dl (0.2-1.3) 06/10/25 03:51
AST 18 U/L (17-59) 06/10/25 03:51
ALT 14 U/L (0-50) 06/10/25 03:51
Alkaline Phosphatase 437 U/L (38-126) H 06/10/25 03:51
C-Reactive Protein 54.20 mg/L (0.0-10.00) H 06/05/25 20:34
Most recent labs reviewed.
Micro Results:
06/07/25 11:45 Tissue Culture - Final
Tibia Staphylococcus epidermidis
Gram Stain - Final
06/05/25 21:15 Blood Culture - Final
Blood/Venous No Growth - Final Report
06/05/25 20:34 Blood Culture - Final
Blood/Venous No Growth - Final Report
06/07/25 11:45 Tissue Culture - Final
Other-Please specify - Other No Growth After 72 Hours
Gram Stain - Final
06/06/25 14:46 MRSA Screen - Final
Nose No Methicillin Resistant Staphylococcus aureus isolated.
Imaging:
06/05/2025 X-ray left tibia/fibula: extensive chronic appearing cortical thickening/sclerosis and periosteal reaction along the tibia and fibula diaphysis, likely reflecting chronic osteomyelitis. Soft tissue irregularity noted along the anterior
lower leg. No acute fracture or dislocation. Partially visualized regional joints are grossly unremarkable. Please see full dictation for additional detail.
06/05/2025 X-ray right elbow: Redemonstration of changes related to chronic osteomyelitis with extensive deformity and fragmentation of the proximal ulna and radius with chronic subluxation of the elbow joint articulations, progressed from prior. A
component of superimposed acute osteomyelitis is difficult to exclude radiographically. No obvious acute erosive component. Moderate soft tissue swelling about the elbow redemonstrated. No definite joint effusion.
--- NOTE | 2025-06-14 09:05 | W.PN.UPDATE ---
Update Note
Progress Note Update
pt seen for updated assessment. listless, barely answers, one word only. no requests, says he is ok, not having withdrawal problems. denies suicidality, denies depression (not very convincingly.) needs ongoing treatment of multiple infections.
reluctant to start antidepressants due to QTc prolongation, low Na, and many other reasons for listlessness
[2025-06-14] MEDS: CIPRO 750 MG PO (09:25)
[2025-06-14] MEDS: ZESTRIL 5 MG PO (09:25)
[2025-06-14] MEDS: TYLENOL 1000 MG PO ×2 (09:25→17:06)
[2025-06-14] MEDS: NORVASC 10 MG PO (09:26)
[2025-06-14] MEDS: VITAMIN B-12 1000 MCG PO (09:26)
[2025-06-14] MEDS: SUBUTEX 8 MG SL (09:26)
[2025-06-14] MEDS: TOPROL XL 25 MG PO (09:26)
--- NOTE | 2025-06-14 11:11 | PTCARENOTE ---
Patient uncooperative at times, states does not want to speak to me. NSR-NST on monitor, VSS. Refusing wound care at this time, will try again. MD aware. Call steinberg in reach, patient making his needs known. Will continue to monitor.
--- NOTE | 2025-06-14 11:44 | W.PN.HOSP.TC ---
Addendum entered and electronically signed by Sudhakar Quezada MD 06/14/25 18:21:
Received [place] text from RN that patient has a bed at inpatient drug rehabilitation.
Discontinue midline prior to discharge.
More than 30 minutes spent in discharge including
Final examination of the patient
Summarizing hospital stay
Instructions for continuing care to all relevant caregivers
Preparation of discharge records, prescriptions, and referral forms
Total time spent (in minutes): 55
Original Note:
Today's Communication/Plan
-
po bicarb
monitor BP-adjust meds prn
await rehab placement
Assessment / Plan
Assessment / Plan
Physical Exam
General: no acute distress, appears comfortable at this time
HEENT: NormoCephalic, Anicteric, Dilated pupils reactive , missing teeth
Respiratory: Clear; No Wheezes, Rales or Rhonchi
Cardiac: S1/S2 and Regular Rhythm; No Murmur, Rub, Gallop or Peripheral Edema
GI: Soft, Non Tender, Non Distended and Normal Bowel Sounds
Musculoskeletal: right elbow swelling and chronic contracture, Lower ext b/l dressing clean dry intact
Neuro: does not want to wake up
Psych: Calm
30M Tobacco chronic IVDA (Fentanyl Tranq), right elbow chronic osteomyelitis, LLE chronic wound w underlying chronic osteomyelitis. Attempted to go to to his rehab facility but was refused admission due to treatment for his wounds. He is
reportedly still using IV drugs and injecting into the wounds in his leg. Currently staying in a residential in [place].he was brought here by support personnel who have been following him for the last year. He had prior admission for sepsis with
multiple organ failure, necrotizing cellulitis affecting wounds lower extremities b/l. He was also treated for pneumonia required intubation and pressure support. He required debridement of lower extremity wounds to his left leg in April 2023.
He was recommended to have surgery on his right elbow but never followed up with treatment. He was also treated for anemia received 2 units of blood transfusion and IV iron for iron deficiency. He
#Anemia likely blood loss from wounds (possible acute blood loss vs chronic blood loss) and Anemia of Chronic disease
-Hgb 5.3 responded well to 2PRBC transfusion
-Iron study reviewed
-Monitor H&H, stable at this time since transfusions as above at 9.8
#FX right elbow secondary recent fall with OSTEO
#History chronic contracture right elbow 2/ IVDA
#History of osteomyelitis of the right elbow joint (chronic)
Was advised in October needed follow-up but did not obtain
- ESR 135, blood cultures x 2 NGTD
- xray right elbow:Redemonstrate changes related to chronic osteomyelitis with extensive deformity and fragmentation of the proximal ulna and radius with chronic subluxation of the elbow joint articulations. progressed from prior. A component of
superimposed acute osteomyelitis is difficult to exclude radiographically. No obvious acute erosive component. Moderate soft tissue swelling about the elbow redemonstrated. No definite joint effusion.
- Consult Orthopedic Appreciated no surgical intervention recommended at this time. May require above elbow amputation if continues to worsen despite abx
#Left lower extremity entire anterior santos open wound with OSTEO from IVDA
#History of debridement October 2024 due to necrotizing soft tissue infection
- Tib fib xray LLE: Extensive chronic appearing cortical thickening/sclerosis and periosteal reaction along the tibia and fibula diaphyses, likely reflecting chronic osteomyelitis. Soft tissue irregularity noted along the anterior lower leg. No
acute fractures or dislocation. Partially visualized regional joints are grossly unremarkable.
- Consult surgery appreciated wound infection not amenable to debridement, risk of limb loss
- empirically treated with IV Zosyn IV vancomycin
- bone bx cx appreciated staph epidermidis sensitivities appreciated, pathology appreciated Lt Tibia osteonecrosis, no osteomyelitis, Rt elbow acute on chronic osteomyelitis w/ focal osteonecrosis
- IR eval appreciated
- Consult ID appreciated abx held for IR bone bx 06/07/25, empiric Cipro Augmentin started after bx, risk of outpatient IV antibiotics unacceptably high, following bone bx culture results patient recommended to continue 750mg bid for 6 weeks
treatment then indefinitely for suppression (same dose)- essentially 750 mg Cipro BID for life.
- Wound care eval appreciated
#Polysubstance abuse IVDA
#Anxiety/depression
#Hypertensive urgency likely 2/2 opiate withdrawal
History UDS positive for fentanyl, cocaine, and marijuana october 2024
Patient has been injecting fentanyl/Tranq in his wound approximately 12 times a day total used 24 bags daily
Last use 06/05/2025
transferred to IMU for closer monitoring 06/06
Opiate withdrawal protocol Oxycontin [place] Subutex taper PRN oxycodone, tizanidine, subutex
Clonidine 0.1 mg BID w/ holding parameters, increased to 0.2 mg TID w/ start 0.3 mg Clonidine patch 06/07 to encourage compliance
06/08 remained in severe opiate withdrawal, agitated refusing meds/labs/examination, associate hypertensive urgency, Transferred to ICU for benefit precedex gtt 06/08
precedex helps w/ withdrawal from zylazine/medetomidine, notable improvement in bp following start of precedex gtt
Patient since weaned off precedex gtt stable for downgrade back to IMU 06/10 blood pressure remains uncontrolled but at this time not likely 2/2 opiate withdrawal as per ICU
Amlodipine 2.5 mg daily added, gradually titrated up to 10 mg daily (patient was discharged on 10 mg daily last hospitalization)
Lisinopril 5 mg daily added
Metoprolol XL 25mg daily added w/ persistent tachycardia
Labetalol prn switched to Hydralazine prn SBP>160 or DBP>100
Renal Artery Duplex appreciated no significant stenosis
Case mgmt consult appreciated planned for inpt drug rehab
psych eval requested-?Methadone. Unclear if it will clear hindrance for management at inpatient detox rehab.
#Active smoker/Vaping
reportedly Half a pack a day
Initially accepted nicotine supplementation, since refused
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
Dietary consult appreciated
#Hypomagnesemia
#Mild non anion gap acidosis
monitor and replete as necessary
start po bicarbonate
DVT Prophylaxis: Lovenox
Code Status: Full Code
Dispo- inpatient rehab. Cm aware. Medically stable for dc to rehab.
Anticipated Discharge: Today
Subjective/Interval History
-
Date of Service: June 14, 2025
intermittently refusing care
did take his meds later on today
sleeping and didnt want to be waken up
Objective Data
-
Labs:
Laboratory Results
06/14/25
05:30
Sodium 133 L
Potassium 5.1
Chloride 109 H
Carbon Dioxide 16 L
BUN 30 H
Creatinine 1.1
Glucose 88
Calcium 9.2
Vital Signs:
Vital Signs
Temp Pulse Resp BP Pulse Ox
98.4 F 97 15 162/95 98
06/14/25 07:30 06/14/25 10:00 06/14/25 10:00 06/14/25 10:00 06/14/25 08:00
I&O
06/13/25 06/14/25 06/15/25
06:59 06:59 06:59
Intake Total 540 / 540 480 / 480 120 / 120
Output Total 850 / 850 850 / 850 200 / 200
Balance -310 / -310 -370 / -370 -80 / -80
Data Reviewed
-
Total Time Spent with Patient (in minutes): 55
[2025-06-14] MEDS: DAKIN'S SOLUTION 0.125% 1/4 STRENGTH 1 ML TOPICAL (12:00)
--- NOTE | 2025-06-14 14:01 | WOUNDNOTE ---
LEFT LOWER LEG
--- NOTE | 2025-06-14 14:01 | WOUNDNOTE ---
LEFT LOWER LEG
--- NOTE | 2025-06-14 14:04 | WOUNDNOTE ---
WO RN NOTE: Patient visited to follow up on left leg wound. Wound appears carpet cleaner than last assessment, but some purulent drainage is still noted at the distal portion of the wound. Right leg with scabbed abrasion, no erythema, drainage or odor
noted. All wound care provided as ordered and continues to be appropriate. Plan is for rehab. Will follow as needed.
--- NOTE | 2025-06-14 14:08 | WOUNDNOTE ---
Wound Care Instructions Left Leg Wound- Clean with Dakins, cover with adaptic and ABD and wrap with kerlix. Change daily and PRN drainage.
Right leg- Clean wit normal saline or soap and water. Apply adaptic and dry dressing. Change daily and PRN.
--- NOTE | 2025-06-14 16:17 | CM ---
F/U: ALEX Washington spoke to BENITA who s aid that [facility] has potential bed and that [facility] is waiting for the insurance to approve him. There has been some back and forth with questions from the insurance so there might be a chance today or
tomorrow. ALEX Washington updated the mother. PLAN: Inpatient Rehab at [facility]
[2025-06-14] MEDS: CATAPRES-TTS-3 0.3 MG TRANSDERM (17:05)
[2025-06-14] MEDS: SODIUM BICARBONATE 650 MG PO (17:06)
--- NOTE | 2025-06-14 18:15 | W.DCSUMMARY ---
Discharge Summary
Discharge Data
Date of Admission: 06/05/25
Date of Discharge: 06/14/25
-
Pending Results: No
Hospital Course
30M Tobacco chronic IVDA (Fentanyl Tranq), right elbow chronic osteomyelitis, LLE chronic wound w underlying chronic osteomyelitis. Attempted to go to to his rehab facility but was refused admission due to treatment for his wounds. He is
reportedly still using IV drugs and injecting into the wounds in his leg. Currently staying in a [facility] in [place].he was brought here by support personnel who have been following him for the last year. He had prior admission for sepsis with
multiple organ failure, necrotizing cellulitis affecting wounds lower extremities b/l. He was recommended to have surgery on his right elbow but never followed up with treatment. He was also treated for anemia received 2 units of blood
transfusion and IV iron for iron deficiency. Patient was eval by surgery, orthopedic. They recommended no current indication or plan for any surgery. Patient underwent bone biopsy by interventional radiology. Patient was also eval by financial processing clerk
as patient required Precedex infusion for severe opioid withdrawal. Precedex was eventually weaned off. Patient was maintained on opioid withdrawal protocol. Patient was also found to be in hypertension urgency. Patient was started on p.o.
medications. Patient blood pressure improved. Infectious disease also evaluated patient and they recommended patient to be on ciprofloxacin 750 mg twice daily for 6 weeks and then for life for suppression. Patient blood pressure meds were
uptitrated. Blood pressure improved. Patient was also eval by psychiatry. Patient stated he was interested in going to inpatient rehabitation. Patient was counseled multiple times despite multiple specialties that if he continues to inject that
he remains at high risk of limb loss. Patient was eval by case management and [facility] and he will be transferred to Inpatient Drug Rehabilitation.
Discharge Plan
-
Patient Disposition: Psych Facility
Discharge Diagnosis/Procedures: Anemia of chronic disease status post blood transfusion
Right elbow chronic osteomyelitis status post bone biopsy
Left lower extremity wound with underlying chronic osteomyelitis
Polysubstance abuse IV drug abuse
Hypertension urgency
Hypomagnesemia
Mild anion gap metabolic acidosis
Condition: Fair
Diet: Regular
Activity: As tolerated
Driving Restrictions: As prior to admission
Blood Work: CBC and BMP in 5 to 7 days for primary doctor
Activity Restrictions/Additional Instructions:
Wound Care Instructions Right leg- Clean with normal saline or soap and water. Apply adaptic and dry dressing. Change daily and PRN.
Left Leg Wound- Clean with Dakins, cover with adaptic and ABD and wrap with kerlix. Change daily and PRN drainage
Cipro Precautions : Do not take any multivitamins, calcium, magnesium or zinc containing products within 3 hours of taking this medication - this includes multivitamins, milk/dairy, calcium fortified products and some laxatives.
continue the oral ciprofloxacin for 6 weeks and then indefinitely for suppression
Instructions: Cellulitis (Skin Infection), Adult (DC), [facility]Wounds, BLOOD PRESSURE
Referrals:
NONE,* [Family Provider, Internal Medicine]
Prescriptions:
New
clonidine 0.3 mg/24 hr Patch Weekly
0.3 mg transdermal Q7D 30 Days Qty: 4 0RF
ciprofloxacin HCl 500 mg Tablet
750 mg PO BID Qty: 60 0RF
sodium bicarbonate 650 mg Tablet
650 mg PO TID Qty: 15 0RF
amlodipine 10 mg Tablet
10 mg PO DAILY Qty: 30 0RF
buprenorphine HCl 8 mg Tablet, Sublingual
8 mg sublingual BID 14 Days Qty: 28 0RF
acetaminophen [Tylenol Extra Strength] 500 mg Tablet
1,000 mg PO Q8 PRN (Reason: Pain) Qty: 10 0RF
cyanocobalamin (vitamin B-12) 500 mcg Tablet
1,000 mcg PO DAILY Qty: 30 0RF
lisinopril 5 mg Tablet
5 mg PO DAILY Qty: 30 0RF
metoprolol succinate 25 mg Tablet Extended Release 24 Hr
25 mg PO DAILY Qty: 30 0RF
Discharge Orders:
Discharge Patient (As Directed); Ordered 06/14/25
Ordered By: Sudhakar Quezada
Discharge Date and Time
Print Language: ITALIAN
--- NOTE | 2025-06-14 18:21 | PTCARENOTE ---
Patient and patients Mom aware of DC. Awaiting transport. DC paperwork reviewed with patient and provided a copy. VSS. Tele removed, IV team removing midline now.
--- NOTE | 2025-06-14 19:07 | VATNOTE ---
Midline D/C'd, TCL retrieved was 13cm. Pressure dressing applied.
== END 2025-06-14 18:49 | DRG 478 ==
LOC: IMU 22:48
PROVIDERS: Clinical Nurse Specialist Family Health; Internal Medicine; Physician Assistant Medical; Radiology Vascular & Interventional Radiology; ADMITTING PHYSICIAN Internal Medicine; ATTENDING PHYSICIAN Hospitalist; CONSULT PHYSICIAN Internal Medicine; CONSULT PHYSICIAN Orthopaedic Surgery Hand Surgery; CONSULT PHYSICIAN Student in an Organized Health Care Education/Training Program; EMERGENCY PHYSICIAN Emergency Medicine; OTHER PHYSICIAN Psychiatry & Neurology Psychiatry; OTHER PHYSICIAN Surgery
PROC: 30233N1 Transfusion of Nonautologous Red Blood Cells into Peripheral Vein, Percutaneous Approach (ICD-10-PCS; 2025-06-05)
PROC: 0QBH3ZX Excision of Left Tibia, Percutaneous Approach, Diagnostic (ICD-10-PCS; 2025-06-07)
PROC: 0PBF3ZX Excision of Right Humeral Shaft, Percutaneous Approach, Diagnostic (ICD-10-PCS; 2025-06-07)
DX: M86.621 Other chronic osteomyelitis, right humerus (principal); D62 Acute posthemorrhagic anemia; E87.20 Acidosis, unspecified; Z59.01 Sheltered homelessness; F11.93 Opioid use, unspecified with withdrawal; E46 Unspecified protein-calorie malnutrition; M86.162 Other acute osteomyelitis, left tibia and fibula; Z68.1 Body mass index [BMI] 19.9 or less, adult; F17.210 Nicotine dependence, cigarettes, uncomplicated; F32.A Depression, unspecified; F41.9 Anxiety disorder, unspecified; I16.0 Hypertensive urgency; E83.42 Hypomagnesemia; D63.8 Anemia in other chronic diseases classified elsewhere; F19.10 Other psychoactive substance abuse, uncomplicated; G89.29 Other chronic pain
CPT/HCPCS: 20220; 36430; 73080; 73590; 77002; 80048; 80053; 80306; 80307; 82077; 82248; 82607; 82728; 82746; 83540; 83550; 83605; 83735; 84100; 85025; 85027; 85610; 85652; 85730; 86140; 86850; 86900; 86901; 86920; 87040; 87070; 87147; 87176; 87186; 87205; 88307; 88311; 93005; 93975; 96365; 96375; 99284; 99291; 99406; P9016